=== PATIENT | female | born 1980 | race American Indian/Alaskan Native ===

== ENCOUNTER 2021-11-24 01:21 | Emergency (ER) | payer OTHER, MEDICAID, SELFPAY ==
--- NOTE | ~2021-11-24 | CT_ITS ---
EXAMINATION: CT ABDOMEN AND PELVIS WITHOUT CONTRAST CLINICAL INFORMATION: Lower abdominal pain COMPARISON: None TECHNIQUE: Multidetector volumetric imaging was performed from the superior aspect of the liver through the pubic symphysis. Sagittal and coronal reformatted images were obtained on the technologist's workstation. This CT examination was performed using dose optimization techniques as appropriate, variously including the following: *Automated exposure control *Adjustment of mA and/or kV according to patient size (this includes techniques or standardized protocols for targeted exams where dose is matched to indication/reason for exam; i.e. extremities or head) *Use of iterative reconstruction technique DLP: 635 mGy-cm FINDINGS: LUNG BASES: The visualized lung bases are unremarkable. LIVER, GALLBLADDER, AND BILIARY TREE: The liver is normal in size, shape, and attenuation. No focal hepatic lesion or biliary ductal dilatation is present. The gallbladder is unremarkable with no evidence of radiopaque gallstones, gallbladder wall thickening, or obvious pericholecystic inflammatory changes. PANCREAS: Unremarkable. SPLEEN: Unremarkable. ADRENAL GLANDS: Unremarkable. KIDNEYS AND URETERS: The kidneys are normal in size, shape, and attenuation. No hydronephrosis, hydroureter, or calculi seen. No perinephric stranding. BLADDER: Unremarkable. GASTROINTESTINAL TRACT: No evidence of bowel obstruction or significant wall thickening. The appendix is unremarkable. No free fluid or free air is seen. ABDOMINAL WALL: No significant hernia is appreciated. LYMPH NODES: Normal. VASCULAR: Unremarkable. PELVIC VISCERA: Unremarkable. OSSEOUS STRUCTURES: There is facet arthropathy of the lower lumbar spine. CT/CT abdomen pelvis wo IV con IMPRESSION: No acute findings identified in the abdomen/pelvis.
[2021-11-24 01:43] LABS: MANUAL DIFF FLAG NO
[2021-11-24 01:44] LABS: Basophils Absolute Auto 0.1 X10*3/uL (0.0-0.2); Basophils Percent Auto 0.6 % (0-2); Eosinophils Absolute Auto 0.1 X10*3/uL (0.0-0.4); Eosinophils Percent Auto 1.4 % (0-4); Hematocrit 40.8 % (37.0-47.0); Hemoglobin 13.6 g/dl (12.0-16.0); Imm Gran Abs Auto 0.02 X10*3/uL (0.00-0.03); Imm Gran Pct Auto 0.2 % (0.0-0.4); Lymphocytes Percent Auto 36.1 % (20-40); Mean Corpuscular HGB Conc 33.3 g/dl (31.0-35.0); Mean Corpuscular Hemoglobin 32.4 pg (27.0-33.0); Mean Corpuscular Volume 97.1 fL (80.0-98.0); Mean Platelet Volume 9.3 fL (9.4-12.3); Monocytes Absolute Auto 0.8 X10*3/uL (0.1-1.2); Monocytes Percent Auto 9.8 % (2-11); Neutrophils Absolute Auto 4.4 x10*3/uL (2.0-8.3); Neutrophils Percent Auto 51.9 % (45-73); Platelet Count 346 X10*3/uL (160-400); White Blood Count 8.4 X10*3/uL (4.8-10.8)
[2021-11-24 01:59] LABS: Alanine Aminotransferase 20 U/L (0-31); Albumin Level 4.5 g/dL (3.5-5.0); Alkaline Phosphatase 60 U/L (39-117); Anion Gap 13 (12-20); Aspartate Amino Transferase 20 U/L (5-31); Bilirubin Direct 0.2 mg/dL (0.0-0.5); Bilirubin Total 0.4 mg/dL (0.0-1.0); Blood Urea Nitrogen 13 mg/dL (9-16); Calcium 9.5 mg/dL (8.4-10.2); Carbon Dioxide 24 mmol/L (22-29); Chloride 107 mmol/L (96-108); Estimated Glomerular Filt Rate > 60; Glucose Random 95 mg/dL (60-115); Lipase 71 U/L (8-78); Sodium 140 mmol/L (135-145); Total Protein 7.1 g/dL (6.5-8.0)
[2021-11-24 02:04] VITALS: BP 154/90; PULSE 89; RESP 18; TEMP 36.2; O2SAT 99; BMI 30.4
--- NOTE | 2021-11-24 02:32 | ED.ABDPAIN ---
HPI - Abdominal Pain General Chief Complaint: Abdominal Pain Stated Complaint: Abd pain Time Seen by Provider: 11/24/21 02:11 Source: patient Mode of arrival: ambulatory Limitations: no limitations History of Present Illness HPI narrative: This is a 41-year-old female presenting to the emergency department with dizziness, nausea, lower abdominal pain since yesterday. Patient tells me she started her period yesterday which seems to be manager reading than usual she tells me she is going through 1 tampon super every 3-4 hours. She tells me that she feels slightly off balance particularly with ambulation. She reports constant nausea since yesterday and severe lower abdominal pain which she rates a 10/10. She has a hard time explaining with the pain feels like but she tells me it is localized right below the umbilicus. She does not think she is however she is not on control. She denies chest pain, shortness of breath, vomiting, diarrhea, vision changes, headache, neck pain. Patient reports that she has taken ibuprofen, Tylenol, Midol, Flexeril without relief. MD elicited complaint: abdominal pain Pertinent past history: none Onset (ago): day(s) (2) Pain Consistency: constant Location: periumbilical Severity: severe Pain scale (0-10): 10 Quality: sharp Radiation: none Migration to: no migration Exacerbating factors: nothing Relieving factors: nothing Associated symptoms: nausea and other (dizziness) Related Data Previous Rx's Medication Instructions Recorded ondansetron 4 mg disintegrating 4 mg PO Q8H PRN #10 tab 11/24/21 tablet Allergies Allergy/AdvReac Type Severity Reaction Status Date / Time Unable to Assess Allergy Unverified 11/24/21 02:33 Review of Systems Review of Systems Constitutional : No Weight loss, No Fever, No Chills, No Fatigue, No Malaise ENT/Mouth : No sore throat, No Rhinorrhea Eyes: No Eye Pain, No Swelling, No Redness Cardiovascular : No Chest Pain, No SOB, No Dyspnea on Exertion, No Orthopnea, No Edema, No Palpitations Respiratory : No Cough, No Sputum, No Wheezing Gastrointestinal : + Nausea, No Vomiting, No Diarrhea, No Constipation, + abdominal Pain, No Hematochezia, No Melena Genitourinary : No Dysuria, No Urinary Frequency, No Hematuria, Musculoskeletal : No joint pain, No Myalgias, No Joint Swelling Skin : No Skin Lesions, No rash Neuro : No Weakness, No Numbness, + Dizziness, No Headache Psych : No Anxiety/Panic, No Depression All other systems reviewed and are negative Yes all other systems are reviewed and are negative [facility] Past Medical History Attestation statement: The following information was validated with the patient. Source: old records reviewed and nursing notes reviewed Social History Social History Alcohol intake: current Patient Tobacco Use Status: Current everyday Tobacco user Use of substances other than those prescribed or required for medical reasons: No Advance Directives: No Patient : No Physical Exam ED Vital Signs: Vital Signs - 24 hr 11/24/21 02:04 11/24/21 02:50 11/24/21 04:30 Temperature 97.2 F 98.1 F Pulse Rate 89 83 85 Respiratory Rate 18 16 16 Blood Pressure 154/90 H 129/90 H 146/82 H Pulse Oximetry 99 100 99 BMI result Body Mass Index 30.4 Vital signs stable Appearance: Alert.? Oriented X3.? No acute distress.? Head: Normocephalic, atraumatic, no step-offs or deformities Eyes: Pupils equal, round and reactive to light.?EOMI ENT: Pharynx normal.? Neck: Normal inspection.? Neck supple.? CVS: Normal heart rate and rhythm.? Pulses normal.? Respiratory: No respiratory distress.? Breath sounds normal.? Abdomen: Soft and + periumbilical pain upon palpation, normoactive bowel sounds Skin: Skin warm and dry.? Normal skin color.? Normal skin turgor.? Extremities: No lower extremity edema.? No calf ttp. 5/5 strength to bilateral upper and lower extremities Back: No midline tenderness, no C-spine tenderness, full range of motion, no CVA tenderness bilaterally Neuro: Oriented X 3.? No motor deficit.? No sensory deficit. CN 2-12 intact. Normal vszocd-xb-cbxg, sdip-zd-svhg, steady tandem gait. No pronator drift. Sensitive exam: Deferred , patient refuses Course Reevaluation(s) Reevaluation #1: Patient's CBC within normal limits. No acute electrolyte abnormalities requiring intervention. Lipase within normal limits. HCG negative.Patient reports improvement in pain after administering Toradol, nausea improved after Zofran. She is receiving a L of fluids the 2nd [address] is ordered. Urine and CT of the abdomen pelvis pending at this time. Time: 03:50 Reevaluation #2: CT of the abdomen and pelvis with no acute findings. Urine pending. Patient tells me that her symptoms are gone. Patient's symptoms likely secondary to cramping from menses. Time: 04:18 Reevaluation #3: Urine is pending, patient does not want a 2 L of fluids, she wants to leave without waiting for the urine. Still refusing pelvic exam. At this time patient will be leaving against medical advice. Advised her to return with new or worsening symptoms. Outlined these on her discharge. Time: 04:39 MDM - Abdominal Pain MDM Narrative Medical decision making narrative: 030 41-year-old female presents with 10/10 periumbilical pain, nausea, dizziness since yesterday. Patient reports she is on her period. She tells me it is normal flow if anything, she tells me manager reading than usual. Physical exam significant for pain with palpation in the periumbilical region, normoactive bowel sounds. Lungs clear. Regular rate and rhythm. Negative CVA tenderness bilaterally. Neuro exam is nonfocal. Normal nlvyqo-uo-xqry, gffd-pt-ufwc, steady tandem gait. Based off patient history and physical examination unlikely that this is a stroke, posterior infarct. Will rule out intra-abdominal pathologies with CT scan of the abdomen I do not suspect cholecystitis, appendicitis or pancreatitis. Likely abdominal cramping secondary to menses. Will also rule out electrolyte abnormalities, and UTI Medical Records Attestation: I reviewed the patient's medical records. Lab Data Attestation: I reviewed the patient's lab results. Result diagrams: 11/24/21 01:38 11/24/21 01:38 Labs: Lab Results 11/24/21 11/24/21 Range/Units 01:38 01:38 WBC 8.4 (4.8-10.8) X10*3/uL RBC 4.20 (4.20-5.50) X10*6/uL Hgb 13.6 (12.0-16.0) g/dl Hct 40.8 (37.0-47.0) % MCV 97.1 (80.0-98.0) fL MCH 32.4 (27.0-33.0) pg MCHC 33.3 (31.0-35.0) g/dl RDW 13.0 (11.0-16.0) % Plt Count 346 (160-400) X10*3/uL MPV 9.3 L (9.4-12.3) fL Immature Gran % (Auto) 0.2 (0.0-0.4) % Neut % (Auto) 51.9 (45-73) % Lymph % (Auto) 36.1 (20-40) % [place] % (Auto) 9.8 (2-11) % Eos % (Auto) 1.4 (0-4) % Baso % (Auto) 0.6 (0-2) % Lymph # (Auto) 3.0 (1.2-4.9) X10*3/uL [place] # (Auto) 0.8 (0.1-1.2) X10*3/uL Eos # (Auto) 0.1 (0.0-0.4) X10*3/uL Baso # (Auto) 0.1 (0.0-0.2) X10*3/uL Abs Immat Gran (auto) 0.02 (0.00-0.03) X10*3/uL Absolute Neuts (auto) 4.4 (2.0-8.3) x10*3/uL Absolute Nucleated RBC 0.000 (0.0-0.012) X10*3/uL Nucleated RBC % (auto) 0.0 (0.0-0.2) /100WBC Sodium 140 (135-145) mmol/L Potassium 4.0 (3.3-5.1) mmol/L Chloride 107 (96-108) mmol/L Carbon Dioxide 24 (22-29) mmol/L Anion Gap 13 (12-20) BUN 13 (9-16) mg/dL Creatinine 0.84 (0.5-1.4) mg/dL Estim Creat Clear Calc TNP Estimated GFR > 60 Random Glucose 95 (60-115) mg/dL Calcium 9.5 (8.4-10.2) mg/dL Total Bilirubin 0.4 (0.0-1.0) mg/dL Direct Bilirubin 0.2 (0.0-0.5) mg/dL AST 20 (5-31) U/L ALT 20 (0-31) U/L Alkaline Phosphatase 60 (39-117) U/L Total Protein 7.1 (6.5-8.0) g/dL Albumin 4.5 (3.5-5.0) g/dL Lipase 71 (8-78) U/L Beta HCG, Quant < 2 mIU/mL Critical Care Time Critical Care Time Critical Care Time: No Discharge Plan Discharge Clinical Impression: Abdominal pain, Nausea, Left against medical advice Patient Disposition: Home, Self-Care Instructions: Acute Nausea and Vomiting (ED), Abdominal Pain (ED) Additional Instructions: Take your medications as prescribed. If you were prescribed antibiotics today, it is important that you take your medication to their entirety, do not skip any doses, do not finish them early. Follow-up with your primary care provider this week. And follow-up with your OBGYN. Return to the emergency department with new or worsening symptoms. Such as fevers, chills, chest pain, shortness of breath, nausea, vomiting, dizziness, headache, vision changes, lethargy, bleeding through greater than 2 pads per hour or tampons, dizziness You can take ibuprofen every 6 hours, Tylenol every 4 as needed for pain or discomfort. In case of emergency call 911 Although you felt better after fluids and medication, ideally should have received a full 2 L of fluids however you wanted your IV out and you did not want to stay. You also wanted to leave before urine results came back. For this reason you are leaving against medical advice as I cannot re-evaluate you after fluids, urine. Please come back if you change your mind. Prescriptions: New ondansetron 4 mg tablet,disintegrating 4 mg PO Q8H PRN (Reason: nausea and vomiting) Qty: 10 0RF Referrals: Mickey Robert III, MD [Primary Care Provider] - 1 day Stand Alone Forms: Work/School Release, Against Medical Advice
[2021-11-24 02:50] VITALS: BP 129/90; PULSE 83; RESP 16; TEMP 36.7; O2SAT 100
[2021-11-24] MEDS: Ketorolac Tromethamine 15 MG/ML VIAL 30 MG IVPUSH (03:07)
[2021-11-24] MEDS: ondansetron HCL 4 MG/2 ML VIAL IVPUSH (03:07)
[2021-11-24] MEDS: 0.9 % Sodium Chloride 1,000 ML 999 ML IV ×2 (03:09→04:11)
[2021-11-24 03:17] LABS: HCG Quantitative < 2 mIU/mL
[2021-11-24 04:30] VITALS: BP 146/82; PULSE 85; RESP 16; O2SAT 99
[2021-11-24 04:43] LABS: Appearance Urine CLEAR; Color Urine YELLOW; Glucose Urine UA NEG (NEG); Leukocyte Esterase Urine NEG (NEG); Nitrite Urine NEG (NEG); PH 6.5 (5.0-8.0); Specific Gravity - Urine <= 1.005 (1.005-1.025); UACC Culture Trigger NO; Urine Blood 2+ (NEG); Urine Ketones NEG (NEG); Urine Protein NEG (NEG-TRACE)
[2021-11-24 04:58] LABS: Bacteria Urine 1+ /LPF; Squamous Epithelial Cell Urine 1+ /LPF
== END 2021-11-24 04:46 | disposition home or self-care (01) ==
PROVIDERS: Physician Assistant; Emergency Provider Emergency Medicine; PCP Internal Medicine
DX: R10.30 Lower abdominal pain, unspecified (principal); R11.0 Nausea; F17.200 Nicotine dependence, unspecified, uncomplicated
CPT/HCPCS: 36415; 74176; 80053; 81001; 82248; 83690; 84702; 85025; 96361; 96374; 96375; 99284; J1885; J2405

== ENCOUNTER 2024-03-23 08:57 | Outpatient (AMB) | payer OTHER, SELFPAY ==
[2024-03-23 09:03] VITALS: BP 136/85; PULSE 95; O2SAT 97; BMI 31.6
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
== END 2024-03-23 09:39 | disposition home or self-care (01) ==
PROVIDERS: PCP Internal Medicine; Visit Provider Registered Nurse Emergency
DX: M47.816 Spondylosis without myelopathy or radiculopathy, lumbar region (principal); S73.191A Other sprain of right hip, initial encounter; M25.561 Pain in right knee
CPT/HCPCS: 99204; G2211

== ENCOUNTER → 2024-03-23 08:57 | Outpatient (BNVA) | payer OTHER, SELFPAY | PROVIDERS: PCP Internal Medicine; Visit Provider Registered Nurse Emergency | DX: M47.816 Spondylosis without myelopathy or radiculopathy, lumbar region (principal); M25.561 Pain in right knee; S73.191A Other sprain of right hip, initial encounter | CPT/HCPCS: 99202 ==

== ENCOUNTER 2024-05-02 10:26 | Outpatient (AMB) | payer OTHER, SELFPAY ==
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
== END 2024-05-02 10:45 | disposition home or self-care (01) ==
LOC: HO.PMC 10:26
PROVIDERS: PCP Internal Medicine; Visit Provider Registered Nurse Emergency
DX: M47.816 Spondylosis without myelopathy or radiculopathy, lumbar region (principal); S73.191A Other sprain of right hip, initial encounter; M25.561 Pain in right knee; M54.9 Dorsalgia, unspecified
CPT/HCPCS: 99213; G2211

== ENCOUNTER → 2024-05-02 10:26 | Outpatient (BNVA) | payer OTHER, SELFPAY | PROVIDERS: PCP Internal Medicine; Visit Provider Registered Nurse Emergency ==

== ENCOUNTER 2024-06-12 06:16 | Outpatient (REF) | payer OTHER, SELFPAY ==
--- NOTE | ~2024-06-12 | FL_ITS ---
EXAMINATION: FLUORO GUIDANCE IN TREATMENT ROOM CLINICAL INFORMATION: Dorsalgia chest, unspecified. COMPARISON: None available. TECHNIQUE: Fluoroscopy supervised by: Dr. Demetrio Sepulveda. Fluoroscopy time: 0.1 minutes. Cumulative Dose: 1.6 mGy. DAP: 0.0202 mGy-m2 (milligray-meter squared). Images: 2. FINDINGS: A needle is present with its tip most likely at L5 on the right. A larger probe is present with its tip overlying what is most likely L4 on the right. FL/FL guidance in treatment room IMPRESSION: Fluoroscopy during procedure. Please see procedure report for additional information. Electronically signed by: Wai Rosario MD 08/01/2024 04:58 PM [facility]
--- OUTSIDE RECORDS SUMMARY | 2024-06-13 18:27 | XMS_ITS ---
Author Organization [facility], Address [address] [place] [address] Care Team Providers Care Monitor And Storage Bin Tender Name Role Phone Bernadette Ma Unavailable [phone] ALLERGIES, ADVERSE REACTIONS, ALERTS Substance Code Code System Type Reaction Severity Status Start Date End Date Cymbalta 340763 RxNorm Drug allergy () 0 Penicillins RxNorm Drug allergy () 0 Penicillins Unknown Drug allergy () 1 MEDICATIONS Medication Code Code System Start Date Stop Date Route Dosage Directions Fill Instructions valacyclovir 0 RxNorm oral cyclobenzaprine 0 RxNorm oral Zithromax Z-Eric 323958 RxNorm 022 06/26 oral 2 omeprazole 0 RxNorm oral benzonatate 956208 RxNorm 022 07/01 oral 1 erythromycin 123467 RxNorm 04/10/20 24 ophthalmic (eye) 0.5 Bactrim DS 271757 RxNorm 023 oral 1 PROBLEMS Problem Name Code Code System Start Date End Date Stat Unspecified abdominal pain (R10.9) 57144061 [facility] 06/10/2022 Inactive Encounter for test, result negative (Z32.02) [facility] 06/14/2022 Inactive Lower abdominal pain, unspecified (R10.30) [facility] 06/14/2022 Inactiv e Bronchitis, acute (J20.9) 21094585 [facility] 06/21/2022 Inactive Cough, unspecified (R05.9) [facility] 06/23/2022 Inactive Contact with and (suspected) exposure to other viral communicable diseases (Z20.828) [facility] 06/23/2022 Inactive Gastro-esophageal reflux disease 629596794 [facility] Active Unspecified asthma, uncomplicated 816726685 [facility] 04/09/2023 Resolved Disruption of wound, unspecified, initial encounter 548405774 [facility] 04/17/2023 Resolved Hordeolum externum left upper eyelid 150392539150617 [facility] 04/10/2024 Active ENCOUNTERS Encounter Diagnosis Code Code System Date Stat us Pneumonia, unspecified organism 786496746 [facility] 04/09 Active Unspecified asthma, uncomplicated 331097021 [facility] Active IMMUNIZATIONS * None VITAL SIGNS Code Code System Vitals Name Date Value and Un its 8462-4 [facility] Blood Pressure-Diastolic 04/09/2023 96 mmHg 8480-6 [facility] Blood Pressure-Systolic 04/09/2023 1 36 mmHg 8867-4 [facility] Heart Rate 04/09/2023 101 /min 9279-1 [facility] Respiratory Rate 04/09/2023 18 /min 8310-5 [facility] Body Temperature 04/09/2023 98.3 F 61990-2 [facility] Oxygen Saturation 04/09/2023 96 % SOCIAL HISTORY * None PROCEDURES * None RESULTS Test Code Code System Description Result Value Date Ref erence Range [facility] Strep A Not Detected 04/09/2023 Not Det ected [facility] SARS-CoV-2 Not Detected 04/09/2023 Not De tected [facility] Flu A Not Detected 04/09/2023 Not Det ected [facility] Flu B Not Detected 04/09/2023 Not Det ected MEDICAL EQUIPMENT * Patient has no history of implantable devices ASSESSMENT * None TREATMENT PLAN Type Description Date MEDICATION Take 250 mg tablet 04/09/2023 MEDICATION Take 50 mg tablet 04/09/2023 MEDICATION Take 90 mcg/actuation HFA Aeroso l Inhaler 04/09/2023 APPOINTMENT If not feeling karen r in 3 day(s), please see your primary care physician. If you do not have a primary care physician, please return to this clinic. 04/09/2023 Labs Tests Test Name Code Code System Date SARS-CoV-2 & Flu A/B Multipl ex Assay, Amplified Probe Molecular RT-PCR / NAAT 29405 CPT 04/09/2023 Strep A, DNA, Amplified Probe PCR 36692 CPT 04/09/2023 GOALS * None HEALTH CONCERNS * No Health Concerns FUNCTIONAL AND COGNITIVE STATUS * None CONSULTATION NOTES * None DISCHARGE SUMMARY NOTES * None HISTORY AND PHYSICAL NOTES * Reason for visit - Illness IMAGING NOTES * None LABORATORY REPORT NARRATIVE NOTES * None PATHOLOGY REPORT NARRATIVE NOTES * None PROGRESS NOTES * None
--- OUTSIDE RECORDS SUMMARY | 2024-06-13 18:27 | XMS_ITS ---
Author Organization [facility], Address [address] [place] [address] Care Team Providers Care Merchandise Planner Name Role Phone Laurie Tolliver Unavailable ALLERGIES, ADVERSE REACTIONS, ALERTS Substance Code Code System Type Reaction Severity Status Start Date End Date Penicillins RxNorm Drug allergy () 0 Penicillins Unknown Drug allergy () 1 Cymbalta 175149 RxNorm Drug allergy () 0 MEDICATIONS Medication Code Code System Start Date Stop Date Route Dosage Directions Fill Instructions valacyclovir 0 RxNorm oral cyclobenzaprine 0 RxNorm oral Zithromax Z-Eric 838844 RxNorm 022 06/26 oral 2 omeprazole 0 RxNorm oral benzonatate 261549 RxNorm 022 07/01 oral 1 erythromycin 216356 RxNorm 04/10/20 24 ophthalmic (eye) 0.5 Bactrim DS 510693 RxNorm 023 oral 1 PROBLEMS Problem Name Code Code System Start Date End Date Stat Unspecified abdominal pain (R10.9) 02796256 [facility] 06/10/2022 Inactive Encounter for test, result negative (Z32.02) [facility] 06/14/2022 Inactive Lower abdominal pain, unspecified (R10.30) [facility] 06/14/2022 Inactiv e Bronchitis, acute (J20.9) 32522621 [facility] 06/21/2022 Inactive Cough, unspecified (R05.9) [facility] 06/23/2022 Inactive Contact with and (suspected) exposure to other viral communicable diseases (Z20.828) [facility] 06/23/2022 Inactive Gastro-esophageal reflux disease 380705850 [facility] Active Unspecified asthma, uncomplicated 306972851 [facility] 04/09/2023 Resolved Disruption of wound, unspecified, initial encounter 148969435 [facility] 04/17/2023 Resolved Hordeolum externum left upper eyelid 216737431115895 [facility] 04/10/2024 Active ENCOUNTERS Encounter Diagnosis Code Code System Date Stat us Hordeolum externum left upper eyelid 677358791542811 [facility] 04/10/2024 Active IMMUNIZATIONS * None VITAL SIGNS Code Code System Vitals Name Date Value and Un its 8462-4 [facility] Blood Pressure-Diastolic 04/10/2024 84 mmHg 8480-6 [facility] Blood Pressure-Systolic 04/10/2024 1 12 mmHg 8867-4 [facility] Heart Rate 04/10/2024 94 /min 9279-1 [facility] Respiratory Rate 04/10/2024 18 /min 8310-5 [facility] Body Temperature 04/10/2024 98.8 F 88678-5 inc Oxygen Saturation 04/10/2024 97 % SOCIAL HISTORY * None PROCEDURES * None MEDICAL EQUIPMENT * Patient has no history of implantable devices ASSESSMENT * None TREATMENT PLAN Type Description Date MEDICATION Take 5 mg/gram (0.5 %) ointment 04/10/2024 ORDERS Apply frequent warm moist compresses such as slightly cold steep black tea bag 6-7 times daily for approximately 10 minutes. Do not squeeze the area styes are generally self-limiting and will resolve on their own. 04/10/2024 APPOINTMENT If not feeling karen r in 3 day(s), please see your primary care physician. If you do not have a primary care physician, please return to this clinic. 04/10/2024 Lab Tests None GOALS * None HEALTH CONCERNS * No Health Concerns FUNCTIONAL AND COGNITIVE STATUS * None CONSULTATION NOTES * None DISCHARGE SUMMARY NOTES * None HISTORY AND PHYSICAL NOTES * Reason for visit - Illness IMAGING NOTES * None LABORATORY REPORT NARRATIVE NOTES * None PATHOLOGY REPORT NARRATIVE NOTES * None PROGRESS NOTES * None
--- OUTSIDE RECORDS SUMMARY | 2024-06-13 18:27 | XMS_ITS ---
Author Organization [facility], Address [address] [place] [address] Care Team Providers Care Customs Inspector Name Role Phone Cristel Jin Unavailable [phone] ALLERGIES, ADVERSE REACTIONS, ALERTS Substance Code Code System Type Reaction Severity Status Start Date End Date Penicillins RxNorm Drug allergy () 0 Cymbalta 884011 RxNorm Drug allergy () 0 Penicillins Unknown Drug allergy () 1 MEDICATIONS Medication Code Code System Start Date Stop Date Route Dosage Directions Fill Instructions valacyclovir 0 RxNorm oral cyclobenzaprine 0 RxNorm oral Zithromax Z-Eric 679465 RxNorm 022 06/26 oral 2 omeprazole 0 RxNorm oral benzonatate 482045 RxNorm 022 07/01 oral 1 erythromycin 850353 RxNorm 04/10/20 24 ophthalmic (eye) 0.5 Bactrim DS 080686 RxNorm 023 oral 1 PROBLEMS Problem Name Code Code System Start Date End Date Stat Unspecified abdominal pain (R10.9) 97659717 [facility] 06/10/2022 Inactive Encounter for test, result negative (Z32.02) [facility] 06/14/2022 Inactive Lower abdominal pain, unspecified (R10.30) [facility] 06/14/2022 Inactiv e Bronchitis, acute (J20.9) 92541340 [facility] 06/21/2022 Inactive Cough, unspecified (R05.9) [facility] 06/23/2022 Inactive Contact with and (suspected) exposure to other viral communicable diseases (Z20.828) [facility] 06/23/2022 Inactive Gastro-esophageal reflux disease 705278595 [facility] Active Unspecified asthma, uncomplicated 444428010 [facility] 04/09/2023 Resolved Disruption of wound, unspecified, initial encounter 497290512 [facility] 04/17/2023 Resolved Hordeolum externum left upper eyelid 078233205690144 [facility] 04/10/2024 Active ENCOUNTERS Encounter Diagnosis Code Code System Date Stat us Encounter for removal of sutures 16250304 [facility] 04/06/2023 Active IMMUNIZATIONS * None VITAL SIGNS Code Code System Vitals Name Date Value and Un its 8462-4 [facility] Blood Pressure-Diastolic 04/06/2023 106 mmHg 8480-6 [facility] Blood Pressure-Systolic 04/06/2023 1 59 mmHg 8867-4 [facility] Heart Rate 04/06/2023 103 /min 9279-1 [facility] Respiratory Rate 04/06/2023 18 /min 8310-5 [facility] Body Temperature 04/06/2023 98.7 F 57781-1 [facility] Oxygen Saturation 04/06/2023 97 % SOCIAL HISTORY * None PROCEDURES Code Code System Procedure Date Status Notes 97333 Cpt4 Suture Removal 04/06/2023 completed Deo Gallardo - 04/06/2023 Risks and benefits of procedure and alternatives discussed, and patient verbalized understanding and consent.Procedure: no erythema, no swelling, no warmth, no dehiscence, no discharge, Sutures and louie removed, 6 sutures removed.Patient tolerated procedure well. Patient left room without difficulty. MEDICAL EQUIPMENT * Patient has no history of implantable devices ASSESSMENT Assessment If you develop any spreading redness, red streaking, fever, or signs of infection otherwise please return.Take Tylenol as needed. TREATMENT PLAN Type Description Date APPOINTMENT If not feeling karen r in 3 day(s), please see your primary care physician. If you do not have a primary care physician, please return to this clinic. 04/06/2023 Lab Tests None GOALS * None HEALTH CONCERNS * No Health Concerns FUNCTIONAL AND COGNITIVE STATUS * None CONSULTATION NOTES * None DISCHARGE SUMMARY NOTES * None HISTORY AND PHYSICAL NOTES * Reason for visit - Suture/Staple Removal IMAGING NOTES * None LABORATORY REPORT NARRATIVE NOTES * None PATHOLOGY REPORT NARRATIVE NOTES * None PROGRESS NOTES * None
--- OUTSIDE RECORDS SUMMARY | 2024-06-13 18:27 | XMS_ITS ---
Author Organization [facility], Address [address] [place] [address] Care Team Providers Care Cone Tender Name Role Phone Deo Gallardo [phone] ALLERGIES, ADVERSE REACTIONS, ALERTS Substance Code Code System Type Reaction Severity Status Start Date End Date Penicillins Unknown Drug allergy () 1 Penicillins RxNorm Drug allergy () 0 Cymbalta 962896 RxNorm Drug allergy () 0 MEDICATIONS Medication Code Code System Start Date Stop Date Route Dosage Directions Fill Instructions valacyclovir 0 RxNorm oral cyclobenzaprine 0 RxNorm oral Zithromax Z-Eric 996983 RxNorm 022 06/26 oral 2 omeprazole 0 RxNorm oral benzonatate 254390 RxNorm 022 07/01 oral 1 erythromycin 179993 RxNorm 04/10/20 24 ophthalmic (eye) 0.5 Bactrim DS 546965 RxNorm 023 oral 1 PROBLEMS Problem Name Code Code System Start Date End Date Stat Unspecified abdominal pain (R10.9) 61401512 [facility] 06/10/2022 Inactive Encounter for test, result negative (Z32.02) [facility] 06/14/2022 Inactive Lower abdominal pain, unspecified (R10.30) [facility] 06/14/2022 Inactiv e Bronchitis, acute (J20.9) 52414389 [facility] 06/21/2022 Inactive Cough, unspecified (R05.9) [facility] 06/23/2022 Inactive Contact with and (suspected) exposure to other viral communicable diseases (Z20.828) [facility] 06/23/2022 Inactive Gastro-esophageal reflux disease 185045703 [facility] Active Unspecified asthma, uncomplicated 664618694 [facility] 04/09/2023 Resolved Disruption of wound, unspecified, initial encounter 515508779 [facility] 04/17/2023 Resolved Hordeolum externum left upper eyelid 654306871023585 [facility] 04/10/2024 Active ENCOUNTERS Encounter Diagnosis Code Code System Date Stat us Disruption of wound, unspeci fied, initial encounter 956371578 [facility] 04/17/2023 Active IMMUNIZATIONS * None VITAL SIGNS Code Code System Vitals Name Date Value and Un its 8462-4 [facility] Blood Pressure-Diastolic 04/17/2023 80 mmHg 8480-6 [facility] Blood Pressure-Systolic 04/17/2023 1 36 mmHg 8867-4 [facility] Heart Rate 04/17/2023 95 /min 9279-1 [facility] Respiratory Rate 04/17/2023 18 /min 8310-5 [facility] Body Temperature 04/17/2023 97.1 F 14502-3 [facility] Oxygen Saturation 04/17/2023 99 % SOCIAL HISTORY * None PROCEDURES * None MEDICAL EQUIPMENT * Patient has no history of implantable devices ASSESSMENT Assessment Keep the area covered as himanshu wn.Take the antibiotic as prescribed.If develop any fevers, spreading redness, red streaking or any other new, concerning symptoms please be reevaluated immediately TREATMENT PLAN Type Description Date MEDICATION Take 1 tab by mouth 2 times per day 04/17/2023 APPOINTMENT If not feeling karen r in 3 day(s), please see your primary care physician. If you do not have a primary care physician, please return to this clinic. 04/17/2023 Lab Tests None GOALS * None HEALTH CONCERNS * No Health Concerns FUNCTIONAL AND COGNITIVE STATUS * None CONSULTATION NOTES * None DISCHARGE SUMMARY NOTES * None HISTORY AND PHYSICAL NOTES * Reason for visit - Injury IMAGING NOTES * None LABORATORY REPORT NARRATIVE NOTES * None PATHOLOGY REPORT NARRATIVE NOTES * None PROGRESS NOTES * None
--- OUTSIDE RECORDS SUMMARY | 2024-06-13 18:27 | XMS_ITS ---
Author Organization [facility], Address [address] [place] [address] Care Team Providers Care Eye Technician Name Role Phone Cristel Jin Unavailable [phone] ALLERGIES, ADVERSE REACTIONS, ALERTS Substance Code Code System Type Reaction Severity Status Start Date End Date Penicillins Unknown Drug allergy () 1 Penicillins RxNorm Drug allergy () 0 Cymbalta 564217 RxNorm Drug allergy () 0 MEDICATIONS Medication Code Code System Start Date Stop Date Route Dosage Directions Fill Instructions valacyclovir 0 RxNorm oral cyclobenzaprine 0 RxNorm oral Zithromax Z-Eric 001037 RxNorm 022 06/26 oral 2 omeprazole 0 RxNorm oral benzonatate 177625 RxNorm 022 07/01 oral 1 erythromycin 577629 RxNorm 04/10/20 24 ophthalmic (eye) 0.5 Bactrim DS 650561 RxNorm 023 oral 1 PROBLEMS Problem Name Code Code System Start Date End Date Stat Unspecified abdominal pain (R10.9) 69787455 [facility] 06/10/2022 Inactive Encounter for test, result negative (Z32.02) [facility] 06/14/2022 Inactive Lower abdominal pain, unspecified (R10.30) [facility] 06/14/2022 Inactiv e Bronchitis, acute (J20.9) 41717022 [facility] 06/21/2022 Inactive Cough, unspecified (R05.9) [facility] 06/23/2022 Inactive Contact with and (suspected) exposure to other viral communicable diseases (Z20.828) [facility] 06/23/2022 Inactive Gastro-esophageal reflux disease 696093994 [facility] Active Unspecified asthma, uncomplicated 596703506 [facility] 04/09/2023 Resolved Disruption of wound, unspecified, initial encounter 823878368 [facility] 04/17/2023 Resolved Hordeolum externum left upper eyelid 372584868073832 [facility] 04/10/2024 Active ENCOUNTERS Encounter Diagnosis Code Code System Date Stat us Contusion of right hand, incosmo tial encounter 48095954648836786 [facility] 03/14/2023 Active IMMUNIZATIONS * None VITAL SIGNS Code Code System Vitals Name Date Value and Un its 8462-4 [facility] Blood Pressure-Diastolic 03/14/2023 95 mmHg 8480-6 [facility] Blood Pressure-Systolic 03/14/2023 1 38 mmHg 8867-4 [facility] Heart Rate 03/14/2023 102 /min 9279-1 [facility] Respiratory Rate 03/14/2023 18 /min 8310-5 [facility] Body Temperature 03/14/2023 98.4 F 89535-7 [facility] Oxygen Saturation 03/14/2023 98 % SOCIAL HISTORY * None PROCEDURES * None MEDICAL EQUIPMENT * Patient has no history of implantable devices ASSESSMENT * None TREATMENT PLAN Type Description Date APPOINTMENT If not feeling karen r in 3 day(s), please see your primary care physician. If you do not have a primary care physician, please return to this clinic. 03/14/2023 Lab Tests None GOALS * None HEALTH CONCERNS * No Health Concerns FUNCTIONAL AND COGNITIVE STATUS * None CONSULTATION NOTES * None DISCHARGE SUMMARY NOTES * None HISTORY AND PHYSICAL NOTES * Reason for visit - Injury IMAGING NOTES * /[place]astern History: Pain-Right Hand: The patient presents with a chief complaint of pain of the right hand since 1 day ago. The patient describes the severity as severe. The patient also reports swelling as an abnormal symptom related to the complaint.RIGHT HANDFindings:Alignment is normal. No fracture or dislocation. Soft tissues are unremarkable.Impression:Negative right hand LABORATORY REPORT NARRATIVE NOTES * None PATHOLOGY REPORT NARRATIVE NOTES * None PROGRESS NOTES * None
== END 2024-06-12 06:17 | disposition home or self-care (01) ==
LOC: CF 06:16
PROVIDERS: Visit Provider Anesthesiology
DX: M54.9 Dorsalgia, unspecified (principal); M47.816 Spondylosis without myelopathy or radiculopathy, lumbar region
CPT/HCPCS: 64555; J2003

== ENCOUNTER 2024-06-12 13:03 | Outpatient (AMB) | payer OTHER, SELFPAY ==
[2024-06-12 13:12] VITALS: BP 100/70; PULSE 104; RESP 1; O2SAT 97
--- NOTE | 2024-06-12 13:12 | MHC.OFFVIS ---
Vital Signs 06/12/24 13:12 06/12/24 13:59 BP 100/70 110/72 Blood Pressure Location Lt brachial Lt brachial Position Sitting Sitting Respiration 1 L 14 Pulse 104 H 91 Pulse Source Pulse Oximeter Pulse Oximeter Pulse Oximetry (%) 97 96 Oxygen Delivery Method Room Air Room Air Intake Visit Reasons: RIGHT L5 SPRINT PNS TRIAL Allergies amoxicillin Allergy (Unknown, Verified 06/12/24 13:13) Unknown Medication List - Last Reconciled 06/12/24 by Katia Zambrano LPN albuterol 90 mcg/actuation mcg inhalation cyclobenzaprine 5 mg PO TID PRN diazepam 5 mg PO ONCE PRN diclofenac sodium 1% 2 grams topical QID fluticasone propion-salmeterol 100-50 mcg/dose (Advair Diskus) 1 inh inhalation Q12H fluticasone propionate 0.005% 1 appl topical DAILY gabapentin 300 mg PO BID ibuprofen 600 mg PO Q6H PRN lorazepam (Ativan) 1 mg PO ONCE meloxicam 15 mg PO DAILY methocarbamol 500 mg PO TID montelukast 10 mg PO BEDTIME ondansetron 4 mg PO Q8H PRN valacyclovir 500 mg PO DAILY varenicline 0.5 mg PO DAILY PFSH Social History (System 04/08/23 @ 14:22 by Kimmy Lantigua) Alcohol intake: current Patient Tobacco Use Status: Current everyday Tobacco user Physical Exam Vital Signs: Last Vital Signs Pulse 91 06/12/24 13:59 Resp 14 06/12/24 13:59 BP 110/72 06/12/24 13:59 Pulse Ox 96 06/12/24 13:59 Oxygen Delivery Method Room Air 06/12/24 13:59 Assessment & Plan Assessment & Plan (1) Intractable back pain: Code(s): M54.9 - Dorsalgia, unspecified Category: Medical (2) Lumbar spondylosis: Code(s): M47.816 - Spondylosis without myelopathy or radiculopathy, lumbar region Category: Medical Plan Percutaneous implantation of peripheral nerve stimulation Sprint system L5 right side. After the risks, benefits and alternatives were discussed with the patient and informed consent was obtained, patient was placed in the prone position and padded to foster comfort. Time out was performed delineating correct site and side of the procedure , name and of the patient, patient participated in time out procedure. C-arm was brought over the operating field and clear picture of the L5 lamina on the right was delineated on the screen. The upper central portion of the lamina was chosen as a target of the needle tip insertion . After identifying and marking the intended target, the skin around the planned entry point and the subcutaneous tissues were injected with local anesthetic forming skin wheal.. A percutaneous sleeve and stimulating probe lead introduction system were assembled, inserted and advanced through the skin wheal to the point of interest under C-arm view L5 right lamina., the introducer needle was delivered to a location in proximity to the nerve. Multiple stimulation parameters were used to deliver stimulation to the nerve in concert with stimulating at multiple positions around the nerve. The nerve target acquisition was confirmed noting generation of in the corresponding to the nerve being stimulated. Various electrical parameter combinations were tested, and the lead location was adjusted (physically relocated) until the patient indicated overlapping the distribution of the patient?s typical region of pain. The stimulating probe was removed from the introducer and a percutaneous lead was guided through the needle and delivered to a location in similar proximity to the nerve. Final location was verified with electrical stimulation. The introducer needle was removed, and the exposed end of the percutaneous lead was attached to an external stimulator unit. At the end of the case various electrical parameter combinations were again tested until the patient indicated paresthesia or muscle tension overlapping the distribution of the patient?s typical region of pain. After confirming that lead impedance was in the normal range, the external unit was detached, the needle was removed, and the lead was anchored at the skin. The lead was threaded into the connector block and electrical continuity and desired patient response was confirmed. The connector block was attached to the external stimulator unit. The site was covered with a sterile occlusive dressing and a image was taken to document final placement. Upon completion of the procedure the patient was taken outside the OR where she recovered uneventfully she went home without immediate complications. Orders: Orders FL guidance in treatment room 06/12/24 M54.9 - Dorsalgia, unspecified Coding Level of Care Code Procedure Only Diagnoses Intractable back pain M54.9 Lumbar spondylosis M47.816
[2024-06-12 13:59] VITALS: BP 110/72; PULSE 91; RESP 14; O2SAT 96
--- OUTSIDE RECORDS SUMMARY | 2024-06-13 21:20 | XMS_ITS ---
Author Organization [facility], Address [address] [place] [address] Care Team Providers Care Community Liaison Name Role Phone Bernadette Ma Unavailable [phone] ALLERGIES, ADVERSE REACTIONS, ALERTS Substance Code Code System Type Reaction Severity Status Start Date End Date Penicillins RxNorm Drug allergy () 0 Cymbalta 303703 RxNorm Drug allergy () 0 Penicillins Unknown Drug allergy () 1 MEDICATIONS Medication Code Code System Start Date Stop Date Route Dosage Directions Fill Instructions valacyclovir 0 RxNorm oral cyclobenzaprine 0 RxNorm oral Zithromax Z-Eric 620799 RxNorm 022 06/26 oral 2 omeprazole 0 RxNorm oral benzonatate 176002 RxNorm 022 07/01 oral 1 erythromycin 063394 RxNorm 04/10/20 24 ophthalmic (eye) 0.5 Bactrim DS 291254 RxNorm 023 oral 1 PROBLEMS Problem Name Code Code System Start Date End Date Stat us Unspecified abdominal pain (R10.9) 82950415 [facility] 06/10/2022 Inactive Encounter for test, result negative (Z32.02) [facility] 06/14/2022 Inactive Lower abdominal pain, unspecified (R10.30) [facility] 06/14/2022 Inactiv e Bronchitis, acute (J20.9) 50199313 [facility] 06/21/2022 Inactive Cough, unspecified (R05.9) [facility] 06/23/2022 Inactive Contact with and (suspected) exposure to other viral communicable diseases (Z20.828) [facility] 06/23/2022 Inactive Gastro-esophageal reflux disease 970928761 [facility] Active Unspecified asthma, uncomplicated 660865195 [facility] 04/09/2023 Resolved Disruption of wound, unspecified, initial encounter 237414808 [facility] 04/17/2023 Resolved Hordeolum externum left upper eyelid 399230848292032 [facility] 04/10/2024 Active ENCOUNTERS Encounter Diagnosis Code Code System Date Stat us Pneumonia, unspecified organism 777637461 [facility] 04/09 Active Unspecified asthma, uncomplicated 638675315 [facility] Active IMMUNIZATIONS * None VITAL SIGNS Code Code System Vitals Name Date Value and Un its 8462-4 [facility] Blood Pressure-Diastolic 04/09/2023 96 mmHg 8480-6 [facility] Blood Pressure-Systolic 04/09/2023 1 36 mmHg 8867-4 [facility] Heart Rate 04/09/2023 101 /min 9279-1 [facility] Respiratory Rate 04/09/2023 18 /min 8310-5 [facility] Body Temperature 04/09/2023 98.3 F 77744-3 [facility] Oxygen Saturation 04/09/2023 96 % SOCIAL [...] Assay, Amplified Probe Molecular RT-PCR / NAAT 00113 CPT 04/09/2023 Strep A, DNA, Amplified Probe PCR 61899 CPT 04/09/2023 GOALS * None HEALTH CONCERNS * No Health Concerns FUNCTIONAL AND COGNITIVE STATUS * None CONSULTATION NOTES * None DISCHARGE SUMMARY NOTES * None HISTORY AND PHYSICAL NOTES * Reason for visit - Illness IMAGING NOTES * None LABORATORY REPORT NARRATIVE NOTES * None PATHOLOGY REPORT NARRATIVE NOTES * None PROGRESS NOTES * None
--- OUTSIDE RECORDS SUMMARY | 2024-06-13 21:20 | XMS_ITS ---
Author Organization [facility], Address [address] [place] [address] Care Team Providers Care Curtain Cutter Name Role Phone Cristel Jin Unavailable [phone] ALLERGIES, ADVERSE REACTIONS, ALERTS Substance Code Code System Type Reaction Severity Status Start Date End Date Cymbalta 913020 RxNorm Drug allergy () 0 Penicillins RxNorm Drug allergy () 0 Penicillins Unknown Drug allergy () 1 MEDICATIONS Medication Code Code System Start Date Stop Date Route Dosage Directions Fill Instructions valacyclovir 0 RxNorm oral cyclobenzaprine 0 RxNorm oral Zithromax Z-Eric 219960 RxNorm 022 06/26 oral 2 omeprazole 0 RxNorm oral benzonatate 632933 RxNorm 022 07/01 oral 1 erythromycin 973452 RxNorm 04/10/20 24 ophthalmic (eye) 0.5 Bactrim DS 460675 RxNorm 023 oral 1 PROBLEMS Problem Name Code Code System Start Date End Date Stat Unspecified abdominal pain (R10.9) 66480671 [facility] 06/10/2022 Inactive Encounter for test, result negative (Z32.02) [facility] 06/14/2022 Inactive Lower abdominal pain, unspecified (R10.30) [facility] 06/14/2022 Inactiv e Bronchitis, acute (J20.9) 76654342 [facility] 06/21/2022 Inactive Cough, unspecified (R05.9) [facility] 06/23/2022 Inactive Contact with and (suspected) exposure to other viral communicable diseases (Z20.828) [facility] 06/23/2022 Inactive Gastro-esophageal reflux disease 421181542 [facility] Active Unspecified asthma, uncomplicated 117784488 [facility] 04/09/2023 Resolved Disruption of wound, unspecified, initial encounter 384259991 [facility] 04/17/2023 Resolved Hordeolum externum left upper eyelid 668113694110502 [facility] 04/10/2024 Active ENCOUNTERS Encounter Diagnosis Code Code System Date Stat us Contusion of right hand, incosmo tial encounter [id number] [facility] 03/14/2023 Active IMMUNIZATIONS * None VITAL SIGNS Code Code System Vitals Name Date Value and Un its 8462-4 [facility] Blood Pressure-Diastolic 03/14/2023 95 mmHg 8480-6 [facility] Blood Pressure-Systolic 03/14/2023 1 38 mmHg 8867-4 [facility] Heart Rate 03/14/2023 102 /min 9279-1 [facility] Respiratory Rate 03/14/2023 18 /min 8310-5 [facility] Body Temperature 03/14/2023 98.4 F 28284-8 [facility] Oxygen Saturation 03/14/2023 98 % SOCIAL [...]
--- OUTSIDE RECORDS SUMMARY | 2024-06-13 21:20 | XMS_ITS ---
Author Organization [facility], Address [address] [place] [address] Care Team Providers Care Refractory Furnace Designer Name Role Phone Laurie Tolliver Unavailable [phone] ALLERGIES, ADVERSE REACTIONS, ALERTS Substance Code Code System Type Reaction Severity Status Start Date End Date Penicillins RxNorm Drug allergy () 0 Penicillins Unknown Drug allergy () 1 Cymbalta 323586 RxNorm Drug allergy () 0 MEDICATIONS Medication Code Code System Start Date Stop Date Route Dosage Directions Fill Instructions valacyclovir 0 RxNorm oral cyclobenzaprine 0 RxNorm oral Zithromax Z-Eric 312006 RxNorm 022 06/26 oral 2 omeprazole 0 RxNorm oral benzonatate 895113 RxNorm 022 07/01 oral 1 erythromycin 301487 RxNorm 04/10/20 24 ophthalmic (eye) 0.5 Bactrim DS 791004 RxNorm 023 oral 1 PROBLEMS Problem Name Code Code System Start Date End Date Stat Unspecified abdominal pain (R10.9) 25266307 [facility] 06/10/2022 Inactive Encounter for test, result negative (Z32.02) [facility] 06/14/2022 Inactive Lower abdominal pain, unspecified (R10.30) [facility] 06/14/2022 Inactiv e Bronchitis, acute (J20.9) 84882394 [facility] 06/21/2022 Inactive Cough, unspecified (R05.9) [facility] 06/23/2022 Inactive Contact with and (suspected) exposure to other viral communicable diseases (Z20.828) [facility] 06/23/2022 Inactive Gastro-esophageal reflux disease 984342383 [facility] Active Unspecified asthma, uncomplicated 962976675 [facility] 04/09/2023 Resolved Disruption of wound, unspecified, initial encounter 115186781 [facility] 04/17/2023 Resolved Hordeolum externum left upper eyelid 707648823766501 [facility] 04/10/2024 Active ENCOUNTERS Encounter Diagnosis Code Code System Date Stat us Hordeolum externum left upper eyelid 894365191258275 [facility] 04/10/2024 Active IMMUNIZATIONS * None VITAL SIGNS Code Code System Vitals Name Date Value and Un its 8462-4 [facility] Blood Pressure-Diastolic 04/10/2024 84 mmHg 8480-6 [facility] Blood Pressure-Systolic 04/10/2024 1 12 mmHg 8867-4 [facility] Heart Rate 04/10/2024 94 /min 9279-1 [facility] Respiratory Rate 04/10/2024 18 /min 8310-5 [facility] Body Temperature 04/10/2024 98.8 F 98064-0 inc Oxygen Saturation 04/10/2024 97 % SOCIAL [...]
--- OUTSIDE RECORDS SUMMARY | 2024-06-13 21:20 | XMS_ITS ---
Author Organization [facility], Address [address] [place] [address] Care Team Providers Care Hospitality Manager Name Role Phone Cristel Jin Unavailable [phone] ALLERGIES, ADVERSE REACTIONS, ALERTS Substance Code Code System Type Reaction Severity Status Start Date End Date Cymbalta 141696 RxNorm Drug allergy () 0 Penicillins RxNorm Drug allergy () 0 Penicillins Unknown Drug allergy () 1 MEDICATIONS Medication Code Code System Start Date Stop Date Route Dosage Directions Fill Instructions valacyclovir 0 RxNorm oral cyclobenzaprine 0 RxNorm oral Zithromax Z-Eric 243842 RxNorm 022 06/26 oral 2 omeprazole 0 RxNorm oral benzonatate 628045 RxNorm 022 07/01 oral 1 erythromycin 724916 RxNorm 04/10/20 24 ophthalmic (eye) 0.5 Bactrim DS 758500 RxNorm 023 oral 1 PROBLEMS Problem Name Code Code System Start Date End Date Stat Unspecified abdominal pain (R10.9) 95576143 [facility] 06/10/2022 Inactive Encounter for test, result negative (Z32.02) [facility] 06/14/2022 Inactive Lower abdominal pain, unspecified (R10.30) [facility] 06/14/2022 Inactiv e Bronchitis, acute (J20.9) 27166086 [facility] 06/21/2022 Inactive Cough, unspecified (R05.9) [facility] 06/23/2022 Inactive Contact with and (suspected) exposure to other viral communicable diseases (Z20.828) [facility] 06/23/2022 Inactive Gastro-esophageal reflux disease 851381911 [facility] Active Unspecified asthma, uncomplicated 846626077 [facility] 04/09/2023 Resolved Disruption of wound, unspecified, initial encounter 450189028 [facility] 04/17/2023 Resolved Hordeolum externum left upper eyelid 786148166119974 [facility] 04/10/2024 Active ENCOUNTERS Encounter Diagnosis Code Code System Date Stat us Encounter for removal of sutures 47296186 [facility] 04/06/2023 Active IMMUNIZATIONS * None VITAL SIGNS Code Code System Vitals Name Date Value and Un its 8462-4 [facility] Blood Pressure-Diastolic 04/06/2023 106 mmHg 8480-6 [facility] Blood Pressure-Systolic 04/06/2023 1 59 mmHg 8867-4 [facility] Heart Rate 04/06/2023 103 /min 9279-1 [facility] Respiratory Rate 04/06/2023 18 /min 8310-5 [facility] Body Temperature 04/06/2023 98.7 F 91064-2 [facility] Oxygen Saturation 04/06/2023 97 % SOCIAL HISTORY * None PROCEDURES Code Code System Procedure Date Status Notes 64693 Cpt4 Suture Removal 04/06/2023 completed Deo Gallardo [...]
--- OUTSIDE RECORDS SUMMARY | 2024-06-13 21:21 | XMS_ITS ---
Author Organization [facility], Address [address] [place] [address] Care Team Providers Care Raw Cheese Worker Name Role Phone Deo Gallardo [phone] ALLERGIES, ADVERSE REACTIONS, ALERTS Substance Code Code System Type Reaction Severity Status Start Date End Date Cymbalta 603470 RxNorm Drug allergy () 0 Penicillins RxNorm Drug allergy () 0 Penicillins Unknown Drug allergy () 1 MEDICATIONS Medication Code Code System Start Date Stop Date Route Dosage Directions Fill Instructions valacyclovir 0 RxNorm oral cyclobenzaprine 0 RxNorm oral Zithromax Z-Eric 205084 RxNorm 022 06/26 oral 2 omeprazole 0 RxNorm oral benzonatate 696513 RxNorm 022 07/01 oral 1 erythromycin 389560 RxNorm 04/10/20 24 ophthalmic (eye) 0.5 Bactrim DS 194845 RxNorm 023 oral 1 PROBLEMS Problem Name Code Code System Start Date End Date Stat Unspecified abdominal pain (R10.9) 72848166 [facility] 06/10/2022 Inactive Encounter for test, result negative (Z32.02) [facility] 06/14/2022 Inactive Lower abdominal pain, unspecified (R10.30) [facility] 06/14/2022 Inactiv e Bronchitis, acute (J20.9) 58239995 [facility] 06/21/2022 Inactive Cough, unspecified (R05.9) [facility] 06/23/2022 Inactive Contact with and (suspected) exposure to other viral communicable diseases (Z20.828) [facility] 06/23/2022 Inactive Gastro-esophageal reflux disease 990301979 [facility] Active Unspecified asthma, uncomplicated 299984993 [facility] 04/09/2023 Resolved Disruption of wound, unspecified, initial encounter 692232884 [facility] 04/17/2023 Resolved Hordeolum externum left upper eyelid 824880078327329 [facility] 04/10/2024 Active ENCOUNTERS Encounter Diagnosis Code Code System Date Stat us Disruption of wound, unspeci fied, initial encounter 077296033 [facility] 04/17/2023 Active IMMUNIZATIONS * None VITAL SIGNS Code Code System Vitals Name Date Value and Un its 8462-4 [facility] Blood Pressure-Diastolic 04/17/2023 80 mmHg 8480-6 [facility] Blood Pressure-Systolic 04/17/2023 1 36 mmHg 8867-4 [facility] Heart Rate 04/17/2023 95 /min 9279-1 [facility] Respiratory Rate 04/17/2023 18 /min 8310-5 [facility] Body Temperature 04/17/2023 97.1 F 49049-1 [facility] Oxygen Saturation 04/17/2023 99 % SOCIAL [...]
--- OUTSIDE RECORDS SUMMARY | 2024-06-13 21:21 | XMS_ITS ---
Author Organization [facility], Address [address] [place] [address] Care Team Providers Care Bus And Sys Integration Senior Manager Name Role Phone Laurie Tolliver Unavailable ALLERGIES, ADVERSE REACTIONS, ALERTS Substance Code Code System Type Reaction Severity Status Start Date End Date Cymbalta 132458 RxNorm Drug allergy () 0 Penicillins Unknown Drug allergy () 1 Penicillins RxNorm Drug allergy () 0 MEDICATIONS Medication Code Code System Start Date Stop Date Route Dosage Directions Fill Instructions valacyclovir 0 RxNorm oral cyclobenzaprine 0 RxNorm oral Zithromax Z-Eric 101955 RxNorm 022 06/26 oral 2 omeprazole 0 RxNorm oral benzonatate 826430 RxNorm 022 07/01 oral 1 erythromycin 157540 RxNorm 04/10/20 24 ophthalmic (eye) 0.5 Bactrim DS 367756 RxNorm 023 oral 1 PROBLEMS Problem Name Code Code System Start Date End Date Stat Unspecified abdominal pain (R10.9) 42736439 [facility] 06/10/2022 Inactive Encounter for test, result negative (Z32.02) [facility] 06/14/2022 Inactive Lower abdominal pain, unspecified (R10.30) [facility] 06/14/2022 Inactiv e Bronchitis, acute (J20.9) 26211611 [facility] 06/21/2022 Inactive Cough, unspecified (R05.9) [facility] 06/23/2022 Inactive Contact with and (suspected) exposure to other viral communicable diseases (Z20.828) [facility] 06/23/2022 Inactive Gastro-esophageal reflux disease 412890838 [facility] Active Unspecified asthma, uncomplicated 903453370 [facility] 04/09/2023 Resolved Disruption of wound, unspecified, initial encounter 224786510 [facility] 04/17/2023 Resolved Hordeolum externum left upper eyelid 119792669862504 [facility] 04/10/2024 Active ENCOUNTERS Encounter Diagnosis Code Code System Date Stat us Hordeolum externum left upper eyelid 144600052515473 [facility] 04/10/2024 Active IMMUNIZATIONS * None VITAL SIGNS Code Code System Vitals Name Date Value and Un its 8462-4 [facility] Blood Pressure-Diastolic 04/10/2024 84 mmHg 8480-6 [facility] Blood Pressure-Systolic 04/10/2024 1 12 mmHg 8867-4 [facility] Heart Rate 04/10/2024 94 /min 9279-1 [facility] Respiratory Rate 04/10/2024 18 /min 8310-5 [facility] Body Temperature 04/10/2024 98.8 F 37904-8 inc Oxygen Saturation 04/10/2024 97 % SOCIAL [...]
--- OUTSIDE RECORDS SUMMARY | 2024-06-13 21:21 | XMS_ITS ---
Author Organization [facility], Address [address] [place] [address] Care Team Providers Care Rn Pool Name Role Phone Cristel Jin Unavailable [phone] ALLERGIES, ADVERSE REACTIONS, ALERTS Substance Code Code System Type Reaction Severity Status Start Date End Date Cymbalta 064463 RxNorm Drug allergy () 0 Penicillins Unknown Drug allergy () 1 Penicillins RxNorm Drug allergy () 0 MEDICATIONS Medication Code Code System Start Date Stop Date Route Dosage Directions Fill Instructions valacyclovir 0 RxNorm oral cyclobenzaprine 0 RxNorm oral Zithromax Z-Eric 033838 RxNorm 022 06/26 oral 2 omeprazole 0 RxNorm oral benzonatate 260621 RxNorm 022 07/01 oral 1 erythromycin 177174 RxNorm 04/10/20 24 ophthalmic (eye) 0.5 Bactrim DS 699774 RxNorm 023 oral 1 PROBLEMS Problem Name Code Code System Start Date End Date Stat Unspecified abdominal pain (R10.9) 90739795 [facility] 06/10/2022 Inactive Encounter for test, result negative (Z32.02) [facility] 06/14/2022 Inactive Lower abdominal pain, unspecified (R10.30) [facility] 06/14/2022 Inactiv e Bronchitis, acute (J20.9) 59341607 [facility] 06/21/2022 Inactive Cough, unspecified (R05.9) [facility] 06/23/2022 Inactive Contact with and (suspected) exposure to other viral communicable diseases (Z20.828) [facility] 06/23/2022 Inactive Gastro-esophageal reflux disease 432674110 [facility] Active Unspecified asthma, uncomplicated 559867841 [facility] 04/09/2023 Resolved Disruption of wound, unspecified, initial encounter 196325641 [facility] 04/17/2023 Resolved Hordeolum externum left upper eyelid 672414638754441 [facility] 04/10/2024 Active ENCOUNTERS Encounter Diagnosis Code Code System Date Stat us Contusion of right hand, incomso tial encounter 20952150199652128 [facility] 03/14/2023 Active IMMUNIZATIONS * None VITAL SIGNS Code Code System Vitals Name Date Value and Un its 8462-4 [facility] Blood Pressure-Diastolic 03/14/2023 95 mmHg 8480-6 [facility] Blood Pressure-Systolic 03/14/2023 1 38 mmHg 8867-4 [facility] Heart Rate 03/14/2023 102 /min 9279-1 [facility] Respiratory Rate 03/14/2023 18 /min 8310-5 [facility] Body Temperature 03/14/2023 98.4 F 65094-6 [facility] Oxygen Saturation 03/14/2023 98 % SOCIAL [...]
--- OUTSIDE RECORDS SUMMARY | 2024-06-13 21:21 | XMS_ITS ---
Author Organization [facility], Address [address] [place] [address] Care Team Providers Care Aircraft Armament Mechanic Name Role Phone Cristel Jin Unavailable [phone] ALLERGIES, ADVERSE REACTIONS, ALERTS Substance Code Code System Type Reaction Severity Status Start Date End Date Penicillins RxNorm Drug allergy () 0 Penicillins Unknown Drug allergy () 1 Cymbalta 547630 RxNorm Drug allergy () 0 MEDICATIONS Medication Code Code System Start Date Stop Date Route Dosage Directions Fill Instructions valacyclovir 0 RxNorm oral cyclobenzaprine 0 RxNorm oral Zithromax Z-Eric 356102 RxNorm 022 06/26 oral 2 omeprazole 0 RxNorm oral benzonatate 903879 RxNorm 022 07/01 oral 1 erythromycin 108790 RxNorm 04/10/20 24 ophthalmic (eye) 0.5 Bactrim DS 101732 RxNorm 023 oral 1 PROBLEMS Problem Name Code Code System Start Date End Date Stat Unspecified abdominal pain (R10.9) 87699425 [facility] 06/10/2022 Inactive Encounter for test, result negative (Z32.02) [facility] 06/14/2022 Inactive Lower abdominal pain, unspecified (R10.30) [facility] 06/14/2022 Inactiv e Bronchitis, acute (J20.9) 85735872 [facility] 06/21/2022 Inactive Cough, unspecified (R05.9) [facility] 06/23/2022 Inactive Contact with and (suspected) exposure to other viral communicable diseases (Z20.828) [facility] 06/23/2022 Inactive Gastro-esophageal reflux disease 822309207 [facility] Active Unspecified asthma, uncomplicated 295691695 [facility] 04/09/2023 Resolved Disruption of wound, unspecified, initial encounter 515095781 [facility] 04/17/2023 Resolved Hordeolum externum left upper eyelid 781503314725788 [facility] 04/10/2024 Active ENCOUNTERS Encounter Diagnosis Code Code System Date Stat us Encounter for removal of sutures 13673464 [facility] 04/06/2023 Active IMMUNIZATIONS * None VITAL SIGNS Code Code System Vitals Name Date Value and Un its 8462-4 [facility] Blood Pressure-Diastolic 04/06/2023 106 mmHg 8480-6 [facility] Blood Pressure-Systolic 04/06/2023 1 59 mmHg 8867-4 [facility] Heart Rate 04/06/2023 103 /min 9279-1 [facility] Respiratory Rate 04/06/2023 18 /min 8310-5 [facility] Body Temperature 04/06/2023 98.7 F 28705-8 [facility] Oxygen Saturation 04/06/2023 97 % SOCIAL HISTORY * None PROCEDURES Code Code System Procedure Date Status Notes 71847 Cpt4 Suture Removal 04/06/2023 completed Deo Gallardo [...]
--- OUTSIDE RECORDS SUMMARY | 2024-06-13 21:21 | XMS_ITS ---
Author Organization [facility], Address [address] [place] [address] Care Team Providers Care Training Director Name Role Phone Bernadette Ma Unavailable [phone] ALLERGIES, ADVERSE REACTIONS, ALERTS Substance Code Code System Type Reaction Severity Status Start Date End Date Cymbalta 543378 RxNorm Drug allergy () 0 Penicillins Unknown Drug allergy () 1 Penicillins RxNorm Drug allergy () 0 MEDICATIONS Medication Code Code System Start Date Stop Date Route Dosage Directions Fill Instructions valacyclovir 0 RxNorm oral cyclobenzaprine 0 RxNorm oral Zithromax Z-Eric 477445 RxNorm 022 06/26 oral 2 omeprazole 0 RxNorm oral benzonatate 074726 RxNorm 022 07/01 oral 1 erythromycin 951217 RxNorm 04/10/20 24 ophthalmic (eye) 0.5 Bactrim DS 457507 RxNorm 023 oral 1 PROBLEMS Problem Name Code Code System Start Date End Date Stat Unspecified abdominal pain (R10.9) 60785115 [facility] 06/10/2022 Inactive Encounter for test, result negative (Z32.02) [facility] 06/14/2022 Inactive Lower abdominal pain, unspecified (R10.30) [facility] 06/14/2022 Inactiv e Bronchitis, acute (J20.9) 90542465 [facility] 06/21/2022 Inactive Cough, unspecified (R05.9) [facility] 06/23/2022 Inactive Contact with and (suspected) exposure to other viral communicable diseases (Z20.828) [facility] 06/23/2022 Inactive Gastro-esophageal reflux disease 541113302 [facility] Active Unspecified asthma, uncomplicated 350425747 [facility] 04/09/2023 Resolved Disruption of wound, unspecified, initial encounter 917726480 [facility] 04/17/2023 Resolved Hordeolum externum left upper eyelid 581782376213119 [facility] 04/10/2024 Active ENCOUNTERS Encounter Diagnosis Code Code System Date Stat us Pneumonia, unspecified organism 881512334 [facility] 04/09 Active Unspecified asthma, uncomplicated 684785716 [facility] Active IMMUNIZATIONS * None VITAL SIGNS Code Code System Vitals Name Date Value and Un its 8462-4 [facility] Blood Pressure-Diastolic 04/09/2023 96 mmHg 8480-6 [facility] Blood Pressure-Systolic 04/09/2023 1 36 mmHg 8867-4 [facility] Heart Rate 04/09/2023 101 /min 9279-1 [facility] Respiratory Rate 04/09/2023 18 /min 8310-5 Loinc Body Temperature 04/09/2023 98.3 F 33631-5 [facility] Oxygen Saturation 04/09/2023 96 % SOCIAL [...] Assay, Amplified Probe Molecular RT-PCR / NAAT 38760 CPT 04/09/2023 Strep A, DNA, Amplified Probe PCR 55610 CPT 04/09/2023 GOALS * None HEALTH CONCERNS * No Health Concerns FUNCTIONAL AND COGNITIVE STATUS * None CONSULTATION NOTES * None DISCHARGE SUMMARY NOTES * None HISTORY AND PHYSICAL NOTES * Reason for visit - Illness IMAGING NOTES * None LABORATORY REPORT NARRATIVE NOTES * None PATHOLOGY REPORT NARRATIVE NOTES * None PROGRESS NOTES * None
--- OUTSIDE RECORDS SUMMARY | 2024-06-13 21:21 | XMS_ITS ---
Author Organization [facility], Address [address] [place] [address] Care Team Providers Care [employer] Operations Consultant Name Role Phone Deo Gallardo [phone] ALLERGIES, ADVERSE REACTIONS, ALERTS Substance Code Code System Type Reaction Severity Status Start Date End Date Penicillins RxNorm Drug allergy () 0 Penicillins Unknown Drug allergy () 1 Cymbalta 798408 RxNorm Drug allergy () 0 MEDICATIONS Medication Code Code System Start Date Stop Date Route Dosage Directions Fill Instructions valacyclovir 0 RxNorm oral cyclobenzaprine 0 RxNorm oral Zithromax Z-Eric 633181 RxNorm 022 06/26 oral 2 omeprazole 0 RxNorm oral benzonatate 889331 RxNorm 022 07/01 oral 1 erythromycin 005257 RxNorm 04/10/20 24 ophthalmic (eye) 0.5 Bactrim DS 441860 RxNorm 023 oral 1 PROBLEMS Problem Name Code Code System Start Date End Date Stat Unspecified abdominal pain (R10.9) 45571690 [facility] 06/10/2022 Inactive Encounter for test, result negative (Z32.02) [facility] 06/14/2022 Inactive Lower abdominal pain, unspecified (R10.30) [facility] 06/14/2022 Inactiv e Bronchitis, acute (J20.9) 30986742 [facility] 06/21/2022 Inactive Cough, unspecified (R05.9) [facility] 06/23/2022 Inactive Contact with and (suspected) exposure to other viral communicable diseases (Z20.828) [facility] 06/23/2022 Inactive Gastro-esophageal reflux disease 892546115 [facility] Active Unspecified asthma, uncomplicated 356369959 [facility] 04/09/2023 Resolved Disruption of wound, unspecified, initial encounter 175408146 [facility] 04/17/2023 Resolved Hordeolum externum left upper eyelid 206604141390845 [facility] 04/10/2024 Active ENCOUNTERS Encounter Diagnosis Code Code System Date Stat us Disruption of wound, unspeci fied, initial encounter 711147297 [facility] 04/17/2023 Active IMMUNIZATIONS * None VITAL SIGNS Code Code System Vitals Name Date Value and Un its 8462-4 [facility] Blood Pressure-Diastolic 04/17/2023 80 mmHg 8480-6 [facility] Blood Pressure-Systolic 04/17/2023 1 36 mmHg 8867-4 [facility] Heart Rate 04/17/2023 95 /min 9279-1 [facility] Respiratory Rate 04/17/2023 18 /min 8310-5 Loinc Body Temperature 04/17/2023 97.1 F 25866-9 Lo[facility] Oxygen Saturation 04/17/2023 99 % SOCIAL [...]
== END 2024-06-12 14:20 | disposition home or self-care (01) ==
LOC: HO.PMCPRC 13:03
PROVIDERS: PCP Internal Medicine; Visit Provider Anesthesiology
DX: M47.816 Spondylosis without myelopathy or radiculopathy, lumbar region (principal); M54.9 Dorsalgia, unspecified
CPT/HCPCS: 64555

== ENCOUNTER 2024-06-18 09:36 | Outpatient (AMB) | payer OTHER, SELFPAY ==
--- OUTSIDE RECORDS SUMMARY | 2024-06-18 09:39 | XMS_ITS ---
Author Organization [facility], Address [address] [place] [address] Care Team Providers Care Visiting Teacher Name Role Phone Cristel Jni Unavailable [phone] ALLERGIES, ADVERSE REACTIONS, ALERTS Substance Code Code System Type Reaction Severity Status Start Date End Date Penicillins RxNorm Drug allergy () 0 Cymbalta 108882 RxNorm Drug allergy () 0 Penicillins Unknown Drug allergy () 1 MEDICATIONS Medication Code Code System Start Date Stop Date Route Dosage Directions Fill Instructions valacyclovir 0 RxNorm oral cyclobenzaprine 0 RxNorm oral Zithromax Z-Eric 686602 RxNorm 022 06/26 oral 2 omeprazole 0 RxNorm oral benzonatate 810364 RxNorm 022 07/01 oral 1 erythromycin 225127 RxNorm 04/10/20 24 ophthalmic (eye) 0.5 Bactrim DS 449881 RxNorm 023 oral 1 PROBLEMS Problem Name Code Code System Start Date End Date Stat Unspecified abdominal pain (R10.9) 61189556 [facility] 06/10/2022 Inactive Encounter for test, result negative (Z32.02) [facility] 06/14/2022 Inactive Lower abdominal pain, unspecified (R10.30) [facility] 06/14/2022 Inactiv e Bronchitis, acute (J20.9) 86608370 [facility] 06/21/2022 Inactive Cough, unspecified (R05.9) [facility] 06/23/2022 Inactive Contact with and (suspected) exposure to other viral communicable diseases (Z20.828) [facility] 06/23/2022 Inactive Gastro-esophageal reflux disease 717690198 [facility] Active Unspecified asthma, uncomplicated 479589808 [facility] 04/09/2023 Resolved Disruption of wound, unspecified, initial encounter 363631856 [facility] 04/17/2023 Resolved Hordeolum externum left upper eyelid 887963291993523 [facility] 04/10/2024 Active ENCOUNTERS Encounter Diagnosis Code Code System Date Stat us Contusion of right hand, incosmo tial encounter 73833910072489099 [facility] 03/14/2023 Active IMMUNIZATIONS * None VITAL SIGNS Code Code System Vitals Name Date Value and Un its 8462-4 [facility] Blood Pressure-Diastolic 03/14/2023 95 mmHg 8480-6 [facility] Blood Pressure-Systolic 03/14/2023 1 38 mmHg 8867-4 [facility] Heart Rate 03/14/2023 102 /min 9279-1 [facility] Respiratory Rate 03/14/2023 18 /min 8310-5 [facility] Body Temperature 03/14/2023 98.4 F 27904-1 [facility] Oxygen Saturation 03/14/2023 98 % SOCIAL [...]
--- OUTSIDE RECORDS SUMMARY | 2024-06-18 09:39 | XMS_ITS | Continuity of Care Document ---
Author Organization [facility] Address [address] [place] [address]- Care Team Providers Care Physicist Solid State Name Role Phone Not on Staff, PCP Primary Care Physician Unavail able Encounter [facility] [id number] Date(s): 05/16/24 - 06/15/24 [facility] [address] [place], [place] [address] Attending Physician: Olena Vogt Admitting Physician: Olena Vogt Referring Physician: Olena Vogt Encounter Type: Triage Allergies, Adverse Reactions, Alerts Substance Criticality Severity Reaction Reaction Severity Status amoxicillin Active penicillin HIVES Active Cymbalta Active Medications ibuprofen 600 mg oral tablet 600 mg, By Mouth, 4 times a day, take with Tylenol, # 50 tablet, Refills 0, Tot. Refills 0, Maintenance, 04/18/24 10:36:00 AM EDT, Route to Pharmacy Electronically, [id number], Partial fill upon patient request if the prescription is for a schedule II opioid drug., 165, cm, 04/18/24 4:32:00 EDT, Height, 86.5, kg, 04/16/24 11:59:00 EDT, Dry Weight Start Date: 04/18/24 Status: Ordered Quantity: 50.0 Unit: tablet Repeat number: 1 Nicotine Lozenge 0 Refills, Maintenance, 03/05/24 1:51:00 PM EDT, Partial fill upon patient request if the prescription is for a schedule II opioid drug. Start Date: 03/05/24 Status: Ordered Repeat number: 1 Omeprazole See Instructions, By Mouth Daily, 0 Refills, Maintenance, 08/19/21 10:11:00 PM EST, Partial fill upon patient request if the prescription is for a schedule II opioid drug. Start Date: 08/19/21 Status: Ordered Repeat number: 1 valACYclovir 500 mg oral tablet 500 mg, 1, tablet, By Mouth, Daily, # 30 tablet, Refills 0, Maintenance, 04/16/24 6:13:00 AM EDT, Partial fill upon patient request if the prescription is for a schedule II opioid drug. Start Date: 04/16/24 Status: Ordered Quantity: 30.0 Unit: tablet Repeat number: 1 Problem List Condition Confirmation Course Effective Dates Status Health St atus Informant Asthma Confirmed Active Adult BMI 31.0-31.9 kg/sq m Confirmed Active Fatty liver Confirmed Active Social History Social History Type Response Tobacco Use: 4 or less cigar ettes(less than 1/4 pack)/day in last 30 days. Interested in cessation: No. Sex Sex Representation Female (finding) Patient Care team information Care Team Personnel Name: Not on Staff, PCP Position: S Physician (General Medicine) Member Role: PCP Care Team Related Persons Name: MARY KAY MARSHLAL Name: SNEHAL SIMMONS Name: MAGDY MELÉNDEZ Insurance Providers Guarantor name: BALBINA JOSE Health Plan Information #: 1 Payer: [employer] Member Number: NA Policy Number: NA Group Number: NA
--- OUTSIDE RECORDS SUMMARY | 2024-06-18 09:39 | XMS_ITS ---
Author Organization [facility], Address [address] [place] [address] Care Team Providers Care Orthopedics Pediatric Physician Name Role Phone Cristel Jin Unavailable [phone] ALLERGIES, ADVERSE REACTIONS, ALERTS Substance Code Code System Type Reaction Severity Status Start Date End Date Penicillins RxNorm Drug allergy () 0 Cymbalta 065223 RxNorm Drug allergy () 0 Penicillins Unknown Drug allergy () 1 MEDICATIONS Medication Code Code System Start Date Stop Date Route Dosage Directions Fill Instructions valacyclovir 0 RxNorm oral cyclobenzaprine 0 RxNorm oral Zithromax Z-Eric 278108 RxNorm 022 06/26 oral 2 omeprazole 0 RxNorm oral benzonatate 917416 RxNorm 022 07/01 oral 1 erythromycin 345199 RxNorm 04/10/20 24 ophthalmic (eye) 0.5 Bactrim DS 882307 RxNorm 023 oral 1 PROBLEMS Problem Name Code Code System Start Date End Date Stat Unspecified abdominal pain (R10.9) 13477957 [facility] 06/10/2022 Inactive Encounter for test, result negative (Z32.02) [facility] 06/14/2022 Inactive Lower abdominal pain, unspecified (R10.30) [facility] 06/14/2022 Inactiv e Bronchitis, acute (J20.9) 19318011 [facility] 06/21/2022 Inactive Cough, unspecified (R05.9) [facility] 06/23/2022 Inactive Contact with and (suspected) exposure to other viral communicable diseases (Z20.828) [facility] 06/23/2022 Inactive Gastro-esophageal reflux disease 974620083 [facility] Active Unspecified asthma, uncomplicated 857598789 [facility] 04/09/2023 Resolved Disruption of wound, unspecified, initial encounter 523106276 [facility] 04/17/2023 Resolved Hordeolum externum left upper eyelid 397199946629398 [facility] 04/10/2024 Active ENCOUNTERS Encounter Diagnosis Code Code System Date Stat us Encounter for removal of sutures 16188609 [facility] 04/06/2023 Active IMMUNIZATIONS * None VITAL SIGNS Code Code System Vitals Name Date Value and Un its 8462-4 [facility] Blood Pressure-Diastolic 04/06/2023 106 mmHg 8480-6 [facility] Blood Pressure-Systolic 04/06/2023 1 59 mmHg 8867-4 [facility] Heart Rate 04/06/2023 103 /min 9279-1 [facility] Respiratory Rate 04/06/2023 18 /min 8310-5 [facility] Body Temperature 04/06/2023 98.7 F 04639-0 [facility] Oxygen Saturation 04/06/2023 97 % SOCIAL HISTORY * None PROCEDURES Code Code System Procedure Date Status Notes 86146 Cpt4 Suture Removal 04/06/2023 completed Deo Gallardo [...]
--- OUTSIDE RECORDS SUMMARY | 2024-06-18 09:39 | XMS_ITS | Continuity of Care Document ---
Author Organization [facility] Address [address] [place] [address]- Care Team Providers Care Set Up Mechanic Heading Machines Name Role Phone Not on Staff, PCP Primary Care Physician Unavail able Encounter [facility] [id number] Date(s): 05/15/24 - 06/14/24 [facility] [address] [place], [place] [address] Encounter Type: Triage Allergies, Adverse Reactions, Alerts Substance Criticality Severity Reaction Reaction Severity Status amoxicillin Active Cymbalta Active penicillin HIVES Active Medications ibuprofen 600 mg oral tablet [...] Care Team Related Persons Name: MARY KAY MARSHALL Name: SNEHAL SIMMONS Name: MAGDY MELÉNDEZ Insurance Providers Guarantor name: BALBINA JOSE [employer] Plan Information #: 1 Payer: [employer] Member Number: NA Policy Number: NA Group Number: NA
--- OUTSIDE RECORDS SUMMARY | 2024-06-18 09:39 | XMS_ITS ---
Author Organization [facility], Address [address] [place] [address] Care Team Providers Care Television Installer Helper Name Role Phone Bernadette Ma Unavailable [phone] ALLERGIES, ADVERSE REACTIONS, ALERTS Substance Code Code System Type Reaction Severity Status Start Date End Date Penicillins RxNorm Drug allergy () 0 Cymbalta 185971 RxNorm Drug allergy () 0 Penicillins Unknown Drug allergy () 1 MEDICATIONS Medication Code Code System Start Date Stop Date Route Dosage Directions Fill Instructions valacyclovir 0 RxNorm oral cyclobenzaprine 0 RxNorm oral Zithromax Z-Eric 046487 RxNorm 022 06/26 oral 2 omeprazole 0 RxNorm oral benzonatate 483884 RxNorm 022 07/01 oral 1 erythromycin 510179 RxNorm 04/10/20 24 ophthalmic (eye) 0.5 Bactrim DS 629985 RxNorm 023 oral 1 PROBLEMS Problem Name Code Code System Start Date End Date Stat us Unspecified abdominal pain (R10.9) 68134124 [facility] 06/10/2022 Inactive Encounter for test, result negative (Z32.02) [facility] 06/14/2022 Inactive Lower abdominal pain, unspecified (R10.30) [facility] 06/14/2022 Inactiv e Bronchitis, acute (J20.9) 42559552 [facility] 06/21/2022 Inactive Cough, unspecified (R05.9) [facility] 06/23/2022 Inactive Contact with and (suspected) exposure to other viral communicable diseases (Z20.828) [facility] 06/23/2022 Inactive Gastro-esophageal reflux disease 245986612 [facility] Active Unspecified asthma, uncomplicated 003170754 [facility] 04/09/2023 Resolved Disruption of wound, unspecified, initial encounter 241240421 [facility] 04/17/2023 Resolved Hordeolum externum left upper eyelid 625980741804717 [facility] 04/10/2024 Active ENCOUNTERS Encounter Diagnosis Code Code System Date Stat us Pneumonia, unspecified organism 724035495 [facility] 04/09 Active Unspecified asthma, uncomplicated 144143752 [facility] Active IMMUNIZATIONS * None VITAL SIGNS Code Code System Vitals Name Date Value and Un its 8462-4 [facility] Blood Pressure-Diastolic 04/09/2023 96 mmHg 8480-6 [facility] Blood Pressure-Systolic 04/09/2023 1 36 mmHg 8867-4 [facility] Heart Rate 04/09/2023 101 /min 9279-1 [facility] Respiratory Rate 04/09/2023 18 /min 8310-5 [facility] Body Temperature 04/09/2023 98.3 F 24292-8 [facility] Oxygen Saturation 04/09/2023 96 % SOCIAL [...] Assay, Amplified Probe Molecular RT-PCR / NAAT 42245 CPT 04/09/2023 Strep A, DNA, Amplified Probe PCR 16850 CPT 04/09/2023 GOALS * None HEALTH CONCERNS * No Health Concerns FUNCTIONAL AND COGNITIVE STATUS * None CONSULTATION NOTES * None DISCHARGE SUMMARY NOTES * None HISTORY AND PHYSICAL NOTES * Reason for visit - Illness IMAGING NOTES * None LABORATORY REPORT NARRATIVE NOTES * None PATHOLOGY REPORT NARRATIVE NOTES * None PROGRESS NOTES * None
--- OUTSIDE RECORDS SUMMARY | 2024-06-18 09:39 | XMS_ITS ---
Author Organization [facility], Address [address] [place] [address] Care Team Providers Care Delivery Room Clerk Name Role Phone Laurie Tolliver Unavailable [phone] ALLERGIES, ADVERSE REACTIONS, ALERTS Substance Code Code System Type Reaction Severity Status Start Date End Date Penicillins Unknown Drug allergy () 1 Cymbalta 941840 RxNorm Drug allergy () 0 Penicillins RxNorm Drug allergy () 0 MEDICATIONS Medication Code Code System Start Date Stop Date Route Dosage Directions Fill Instructions valacyclovir 0 RxNorm oral cyclobenzaprine 0 RxNorm oral Zithromax Z-Eric 550293 RxNorm 022 06/26 oral 2 omeprazole 0 RxNorm oral benzonatate 087392 RxNorm 022 07/01 oral 1 erythromycin 083996 RxNorm 04/10/20 24 ophthalmic (eye) 0.5 Bactrim DS 748572 RxNorm 023 oral 1 PROBLEMS Problem Name Code Code System Start Date End Date Stat Unspecified abdominal pain (R10.9) 94896159 [facility] 06/10/2022 Inactive Encounter for test, result negative (Z32.02) [facility] 06/14/2022 Inactive Lower abdominal pain, unspecified (R10.30) [facility] 06/14/2022 Inactiv e Bronchitis, acute (J20.9) 80145887 [facility] 06/21/2022 Inactive Cough, unspecified (R05.9) [facility] 06/23/2022 Inactive Contact with and (suspected) exposure to other viral communicable diseases (Z20.828) [facility] 06/23/2022 Inactive Gastro-esophageal reflux disease 533912332 [facility] Active Unspecified asthma, uncomplicated 094627733 [facility] 04/09/2023 Resolved Disruption of wound, unspecified, initial encounter 050660255 [facility] 04/17/2023 Resolved Hordeolum externum left upper eyelid 584005753894758 [facility] 04/10/2024 Active ENCOUNTERS Encounter Diagnosis Code Code System Date Stat us Hordeolum externum left upper eyelid 481358160497788 [facility] 04/10/2024 Active IMMUNIZATIONS * None VITAL SIGNS Code Code System Vitals Name Date Value and Un its 8462-4 [facility] Blood Pressure-Diastolic 04/10/2024 84 mmHg 8480-6 [facility] Blood Pressure-Systolic 04/10/2024 1 12 mmHg 8867-4 [facility] Heart Rate 04/10/2024 94 /min 9279-1 [facility] Respiratory Rate 04/10/2024 18 /min 8310-5 [facility] Body Temperature 04/10/2024 98.8 F 36977-1 inc Oxygen Saturation 04/10/2024 97 % SOCIAL [...]
--- OUTSIDE RECORDS SUMMARY | 2024-06-18 09:39 | XMS_ITS | Continuity of Care Document ---
Author Organization [facility] Address [address] [place] [address]- Care Team Providers Care Cell Efficiency Supervisor Name Role Phone Not on Staff, PCP Primary Care Physician Unavail able Encounter [facility] [id number] Date(s): 05/15/24 - [facility]15/[facility] [address] [place], [place] [address] Attending Physician: Michelle Sparks DO Encounter Type: Pre-OutPatient One Time Allergies, Adverse Reactions, Alerts Substance Criticality Severity [...] MAGDY MELÉNDEZ Insurance Providers Guarantor name: BALBINA GARCIA Health Plan Information #: 1 Payer: [employer] Member Number: [id number] Policy Number: NA Group Number: NA Health Plan Information #: 2 Payer: [employer] Member Number: [id number] Policy Number: NA Group Number: NA
--- OUTSIDE RECORDS SUMMARY | 2024-06-18 09:39 | XMS_ITS ---
Author Organization [facility], Address [address] [place] [address] Care Team Providers Care Yard Hand Name Role Phone Deo Gallardo [phone] ALLERGIES, ADVERSE REACTIONS, ALERTS Substance Code Code System Type Reaction Severity Status Start Date End Date Cymbalta 886644 RxNorm Drug allergy () 0 Penicillins RxNorm Drug allergy () 0 Penicillins Unknown Drug allergy () 1 MEDICATIONS Medication Code Code System Start Date Stop Date Route Dosage Directions Fill Instructions valacyclovir 0 RxNorm oral cyclobenzaprine 0 RxNorm oral Zithromax Z-Eric 287582 RxNorm 022 06/26 oral 2 omeprazole 0 RxNorm oral benzonatate 888346 RxNorm 022 07/01 oral 1 erythromycin 122043 RxNorm 04/10/20 24 ophthalmic (eye) 0.5 Bactrim DS 671013 RxNorm 023 oral 1 PROBLEMS Problem Name Code Code System Start Date End Date Stat Unspecified abdominal pain (R10.9) 87972372 [facility] 06/10/2022 Inactive Encounter for test, result negative (Z32.02) [facility] 06/14/2022 Inactive Lower abdominal pain, unspecified (R10.30) [facility] 06/14/2022 Inactiv e Bronchitis, acute (J20.9) 06152584 [facility] 06/21/2022 Inactive Cough, unspecified (R05.9) [facility] 06/23/2022 Inactive Contact with and (suspected) exposure to other viral communicable diseases (Z20.828) [facility] 06/23/2022 Inactive Gastro-esophageal reflux disease 289731432 [facility] Active Unspecified asthma, uncomplicated 789112897 [facility] 04/09/2023 Resolved Disruption of wound, unspecified, initial encounter 897842176 [facility] 04/17/2023 Resolved Hordeolum externum left upper eyelid 988256986495753 [facility] 04/10/2024 Active ENCOUNTERS Encounter Diagnosis Code Code System Date Stat us Disruption of wound, unspeci fied, initial encounter 256517056 [facility] 04/17/2023 Active IMMUNIZATIONS * None VITAL SIGNS Code Code System Vitals Name Date Value and Un its 8462-4 [facility] Blood Pressure-Diastolic 04/17/2023 80 mmHg 8480-6 [facility] Blood Pressure-Systolic 04/17/2023 1 36 mmHg 8867-4 [facility] Heart Rate 04/17/2023 95 /min 9279-1 [facility] Respiratory Rate 04/17/2023 18 /min 8310-5 [facility] Body Temperature 04/17/2023 97.1 F 89584-1 [facility] Oxygen Saturation 04/17/2023 99 % SOCIAL [...]
--- OUTSIDE RECORDS SUMMARY | 2024-06-18 09:40 | XMS_ITS ---
Author Organization [facility], Address [address] [place] [address] Care Team Providers Care Child Support Specialist Name Role Phone Cristel Jin Unavailable [phone] ALLERGIES, ADVERSE REACTIONS, ALERTS Substance Code Code System Type Reaction Severity Status Start Date End Date Penicillins RxNorm Drug allergy () 0 Penicillins Unknown Drug allergy () 1 Cymbalta 888660 RxNorm Drug allergy () 0 MEDICATIONS Medication Code Code System Start Date Stop Date Route Dosage Directions Fill Instructions valacyclovir 0 RxNorm oral cyclobenzaprine 0 RxNorm oral Zithromax Z-Eric 703553 RxNorm 022 06/26 oral 2 omeprazole 0 RxNorm oral benzonatate 732960 RxNorm 022 07/01 oral 1 erythromycin 731573 RxNorm 04/10/20 24 ophthalmic (eye) 0.5 Bactrim DS 702839 RxNorm 023 oral 1 PROBLEMS Problem Name Code Code System Start Date End Date Stat Unspecified abdominal pain (R10.9) 79910873 [facility] 06/10/2022 Inactive Encounter for test, result negative (Z32.02) [facility] 06/14/2022 Inactive Lower abdominal pain, unspecified (R10.30) [facility] 06/14/2022 Inactiv e Bronchitis, acute (J20.9) 49415980 [facility] 06/21/2022 Inactive Cough, unspecified (R05.9) [facility] 06/23/2022 Inactive Contact with and (suspected) exposure to other viral communicable diseases (Z20.828) [facility] 06/23/2022 Inactive Gastro-esophageal reflux disease 520693516 [facility] Active Unspecified asthma, uncomplicated 604940106 [facility] 04/09/2023 Resolved Disruption of wound, unspecified, initial encounter 314154158 [facility] 04/17/2023 Resolved Hordeolum externum left upper eyelid 235270214160613 [facility] 04/10/2024 Active ENCOUNTERS Encounter Diagnosis Code Code System Date Stat us Encounter for removal of sutures 01872826 [facility] 04/06/2023 Active IMMUNIZATIONS * None VITAL SIGNS Code Code System Vitals Name Date Value and Un its 8462-4 [facility] Blood Pressure-Diastolic 04/06/2023 106 mmHg 8480-6 [facility] Blood Pressure-Systolic 04/06/2023 1 59 mmHg 8867-4 [facility] Heart Rate 04/06/2023 103 /min 9279-1 [facility] Respiratory Rate 04/06/2023 18 /min 8310-5 Loinc Body Temperature 04/06/2023 98.7 F 39017-9 [facility] Oxygen Saturation 04/06/2023 97 % SOCIAL HISTORY * None PROCEDURES Code Code System Procedure Date Status Notes 30589 Cpt4 Suture Removal 04/06/2023 completed Deo Gallardo [...]
--- OUTSIDE RECORDS SUMMARY | 2024-06-18 09:40 | XMS_ITS ---
Author Organization [facility], Address [address] [place] [address] Care Team Providers Care Pipeline Welder Name Role Phone Cristel Jin Unavailable [phone] ALLERGIES, ADVERSE REACTIONS, ALERTS Substance Code Code System Type Reaction Severity Status Start Date End Date Penicillins RxNorm Drug allergy () 0 Cymbalta 019366 RxNorm Drug allergy () 0 Penicillins Unknown Drug allergy () 1 MEDICATIONS Medication Code Code System Start Date Stop Date Route Dosage Directions Fill Instructions valacyclovir 0 RxNorm oral cyclobenzaprine 0 RxNorm oral Zithromax Z-Eric 541103 RxNorm 022 06/26 oral 2 omeprazole 0 RxNorm oral benzonatate 767503 RxNorm 022 07/01 oral 1 erythromycin 738597 RxNorm 04/10/20 24 ophthalmic (eye) 0.5 Bactrim DS 907676 RxNorm 023 oral 1 PROBLEMS Problem Name Code Code System Start Date End Date Stat Unspecified abdominal pain (R10.9) 71114599 [facility] 06/10/2022 Inactive Encounter for test, result negative (Z32.02) [facility] 06/14/2022 Inactive Lower abdominal pain, unspecified (R10.30) [facility] 06/14/2022 Inactiv e Bronchitis, acute (J20.9) 51431702 [facility] 06/21/2022 Inactive Cough, unspecified (R05.9) [facility] 06/23/2022 Inactive Contact with and (suspected) exposure to other viral communicable diseases (Z20.828) [facility] 06/23/2022 Inactive Gastro-esophageal reflux disease 200022509 [facility] Active Unspecified asthma, uncomplicated 759857326 [facility] 04/09/2023 Resolved Disruption of wound, unspecified, initial encounter 961428853 [facility] 04/17/2023 Resolved Hordeolum externum left upper eyelid 913007076034643 [facility] 04/10/2024 Active ENCOUNTERS Encounter Diagnosis Code Code System Date Stat us Contusion of right hand, incosmo tial encounter 12253758754584182 [facility] 03/14/2023 Active IMMUNIZATIONS * None VITAL SIGNS Code Code System Vitals Name Date Value and Un its 8462-4 [facility] Blood Pressure-Diastolic 03/14/2023 95 mmHg 8480-6 [facility] Blood Pressure-Systolic 03/14/2023 1 38 mmHg 8867-4 [facility] Heart Rate 03/14/2023 102 /min 9279-1 [facility] Respiratory Rate 03/14/2023 18 /min 8310-5 Lo[facility] Body Temperature 03/14/2023 98.4 F 70698-1 Loinc Oxygen Saturation 03/14/2023 98 % SOCIAL [...]
--- OUTSIDE RECORDS SUMMARY | 2024-06-18 09:40 | XMS_ITS ---
Author Organization [facility], Address [address] [place] [address] Care Team Providers Care Taxation Accountant Name Role Phone Laurie Tolliver Unavailable ALLERGIES, ADVERSE REACTIONS, ALERTS Substance Code Code System Type Reaction Severity Status Start Date End Date Penicillins Unknown Drug allergy () 1 Penicillins RxNorm Drug allergy () 0 Cymbalta 807214 RxNorm Drug allergy () 0 MEDICATIONS Medication Code Code System Start Date Stop Date Route Dosage Directions Fill Instructions valacyclovir 0 RxNorm oral cyclobenzaprine 0 RxNorm oral Zithromax Z-Eric 476110 RxNorm 022 06/26 oral 2 omeprazole 0 RxNorm oral benzonatate 934622 RxNorm 022 07/01 oral 1 erythromycin 650306 RxNorm 04/10/20 24 ophthalmic (eye) 0.5 Bactrim DS 398879 RxNorm 023 oral 1 PROBLEMS Problem Name Code Code System Start Date End Date Stat Unspecified abdominal pain (R10.9) 86717167 [facility] 06/10/2022 Inactive Encounter for test, result negative (Z32.02) [facility] 06/14/2022 Inactive Lower abdominal pain, unspecified (R10.30) [facility] 06/14/2022 Inactiv e Bronchitis, acute (J20.9) 96447177 [facility] 06/21/2022 Inactive Cough, unspecified (R05.9) [facility] 06/23/2022 Inactive Contact with and (suspected) exposure to other viral communicable diseases (Z20.828) [facility] 06/23/2022 Inactive Gastro-esophageal reflux disease 842722112 [facility] Active Unspecified asthma, uncomplicated 761816634 [facility] 04/09/2023 Resolved Disruption of wound, unspecified, initial encounter 376329017 [facility] 04/17/2023 Resolved Hordeolum externum left upper eyelid 892699422411479 [facility] 04/10/2024 Active ENCOUNTERS Encounter Diagnosis Code Code System Date Stat us Hordeolum externum left upper eyelid 460909715794578 [facility] 04/10/2024 Active IMMUNIZATIONS * None VITAL SIGNS Code Code System Vitals Name Date Value and Un its 8462-4 [facility] Blood Pressure-Diastolic 04/10/2024 84 mmHg 8480-6 [facility] Blood Pressure-Systolic 04/10/2024 1 12 mmHg 8867-4 [facility] Heart Rate 04/10/2024 94 /min 9279-1 [facility] Respiratory Rate 04/10/2024 18 /min 8310-5 Loinc Body Temperature 04/10/2024 98.8 F 27544-7 inc Oxygen Saturation 04/10/2024 97 % SOCIAL [...]
--- OUTSIDE RECORDS SUMMARY | 2024-06-18 09:41 | XMS_ITS ---
Author Organization [facility], Address [address] [place] [address] Care Team Providers Care Cook Chili Name Role Phone Bernadette Ma Unavailable [phone] ALLERGIES, ADVERSE REACTIONS, ALERTS Substance Code Code System Type Reaction Severity Status Start Date End Date Penicillins RxNorm Drug allergy () 0 Cymbalta 860653 RxNorm Drug allergy () 0 Penicillins Unknown Drug allergy () 1 MEDICATIONS Medication Code Code System Start Date Stop Date Route Dosage Directions Fill Instructions valacyclovir 0 RxNorm oral cyclobenzaprine 0 RxNorm oral Zithromax Z-Eric 114648 RxNorm 022 06/26 oral 2 omeprazole 0 RxNorm oral benzonatate 323007 RxNorm 022 07/01 oral 1 erythromycin 593625 RxNorm 04/10/20 24 ophthalmic (eye) 0.5 Bactrim DS 540872 RxNorm 023 oral 1 PROBLEMS Problem Name Code Code System Start Date End Date Stat us Unspecified abdominal pain (R10.9) 62034756 [facility] 06/10/2022 Inactive Encounter for test, result negative (Z32.02) [facility] 06/14/2022 Inactive Lower abdominal pain, unspecified (R10.30) [facility] 06/14/2022 Inactiv e Bronchitis, acute (J20.9) 69706314 [facility] 06/21/2022 Inactive Cough, unspecified (R05.9) [facility] 06/23/2022 Inactive Contact with and (suspected) exposure to other viral communicable diseases (Z20.828) [facility] 06/23/2022 Inactive Gastro-esophageal reflux disease 660263344 [facility] Active Unspecified asthma, uncomplicated 381456146 [facility] 04/09/2023 Resolved Disruption of wound, unspecified, initial encounter 545076430 [facility] 04/17/2023 Resolved Hordeolum externum left upper eyelid 726175705928150 [facility] 04/10/2024 Active ENCOUNTERS Encounter Diagnosis Code Code System Date Stat us Pneumonia, unspecified organism 063100636 [facility] 04/09 Active Unspecified asthma, uncomplicated 722697986 [facility] Active IMMUNIZATIONS * None VITAL SIGNS Code Code System Vitals Name Date Value and Un its 8462-4 [facility] Blood Pressure-Diastolic 04/09/2023 96 mmHg 8480-6 [facility] Blood Pressure-Systolic 04/09/2023 1 36 mmHg 8867-4 [facility] Heart Rate 04/09/2023 101 /min 9279-1 [facility] Respiratory Rate 04/09/2023 18 /min 8310-5 [facility] Body Temperature 04/09/2023 98.3 F 94762-9 [facility] Oxygen Saturation 04/09/2023 96 % SOCIAL [...] Assay, Amplified Probe Molecular RT-PCR / NAAT 36756 CPT 04/09/2023 Strep A, DNA, Amplified Probe PCR 05581 CPT 04/09/2023 GOALS * None HEALTH CONCERNS * No Health Concerns FUNCTIONAL AND COGNITIVE STATUS * None CONSULTATION NOTES * None DISCHARGE SUMMARY NOTES * None HISTORY AND PHYSICAL NOTES * Reason for visit - Illness IMAGING NOTES * None LABORATORY REPORT NARRATIVE NOTES * None PATHOLOGY REPORT NARRATIVE NOTES * None PROGRESS NOTES * None
--- OUTSIDE RECORDS SUMMARY | 2024-06-18 09:41 | XMS_ITS ---
Author Organization [facility], Address [address] [place] [address] Care Team Providers Care Document Imaging Manager Name Role Phone Deo Gallardo [phone] ALLERGIES, ADVERSE REACTIONS, ALERTS Substance Code Code System Type Reaction Severity Status Start Date End Date Penicillins Unknown Drug allergy () 1 Penicillins RxNorm Drug allergy () 0 Cymbalta 711895 RxNorm Drug allergy () 0 MEDICATIONS Medication Code Code System Start Date Stop Date Route Dosage Directions Fill Instructions valacyclovir 0 RxNorm oral cyclobenzaprine 0 RxNorm oral Zithromax Z-Eric 758727 RxNorm 022 06/26 oral 2 omeprazole 0 RxNorm oral benzonatate 947306 RxNorm 022 07/01 oral 1 erythromycin 031896 RxNorm 04/10/20 24 ophthalmic (eye) 0.5 Bactrim DS 335925 RxNorm 023 oral 1 PROBLEMS Problem Name Code Code System Start Date End Date Stat Unspecified abdominal pain (R10.9) 94873346 [facility] 06/10/2022 Inactive Encounter for test, result negative (Z32.02) [facility] 06/14/2022 Inactive Lower abdominal pain, unspecified (R10.30) [facility] 06/14/2022 Inactiv e Bronchitis, acute (J20.9) 95916843 [facility] 06/21/2022 Inactive Cough, unspecified (R05.9) [facility] 06/23/2022 Inactive Contact with and (suspected) exposure to other viral communicable diseases (Z20.828) [facility] 06/23/2022 Inactive Gastro-esophageal reflux disease 094732284 [facility] Active Unspecified asthma, uncomplicated 655539344 [facility] 04/09/2023 Resolved Disruption of wound, unspecified, initial encounter 263409774 [facility] 04/17/2023 Resolved Hordeolum externum left upper eyelid 260738680899401 [facility] 04/10/2024 Active ENCOUNTERS Encounter Diagnosis Code Code System Date Stat us Disruption of wound, unspeci fied, initial encounter 561644047 [facility] 04/17/2023 Active IMMUNIZATIONS * None VITAL SIGNS Code Code System Vitals Name Date Value and Un its 8462-4 [facility] Blood Pressure-Diastolic 04/17/2023 80 mmHg 8480-6 [facility] Blood Pressure-Systolic 04/17/2023 1 36 mmHg 8867-4 [facility] Heart Rate 04/17/2023 95 /min 9279-1 [facility] Respiratory Rate 04/17/2023 18 /min 8310-5 [facility] Body Temperature 04/17/2023 97.1 F 76033-0 [facility] Oxygen Saturation 04/17/2023 99 % SOCIAL [...]
[2024-06-18 09:49] VITALS: BP 140/77; PULSE 100; O2SAT 98; BMI 31.4
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
== END 2024-06-18 09:54 | disposition home or self-care (01) ==
PROVIDERS: PCP Internal Medicine; Visit Provider Anesthesiology
DX: M47.816 Spondylosis without myelopathy or radiculopathy, lumbar region (principal); S73.191A Other sprain of right hip, initial encounter; M25.561 Pain in right knee
CPT/HCPCS: 99024

== ENCOUNTER → 2024-06-18 09:36 | Outpatient (BNVA) | payer OTHER, SELFPAY | PROVIDERS: PCP Internal Medicine; Visit Provider Anesthesiology | DX: M47.816 Spondylosis without myelopathy or radiculopathy, lumbar region (principal); M25.561 Pain in right knee; S73.191A Other sprain of right hip, initial encounter; X58.XXXA Exposure to other specified factors, initial encounter; Y93.9 Activity, unspecified; Y92.9 Unspecified place or not applicable; Y99.9 Unspecified external cause status | CPT/HCPCS: 99212 ==

== ENCOUNTER → 2024-06-25 14:14 | Outpatient (BNVA) | payer OTHER, SELFPAY | PROVIDERS: PCP Internal Medicine; Visit Provider Anesthesiology ==

== ENCOUNTER → 2024-07-03 10:30 | Outpatient (BNVA) | payer OTHER, SELFPAY | PROVIDERS: PCP Internal Medicine; Visit Provider Anesthesiology ==

== ENCOUNTER 2024-07-10 06:18 | Outpatient (REF) | payer OTHER, SELFPAY ==
--- NOTE | ~2024-07-10 | FL_ITS ---
EXAMINATION: FLUOROSCOPY GUIDANCE FOR NEEDLE PLACEMENT CLINICAL INFORMATION: M47.816 - Spondylosis without myelopathy or radiculopathy, lumbar region COMPARISON: None available. TECHNIQUE: Intraoperative fluoroscopy guidance for a lumbar spine procedure. Patient positioning prominent. 2. Static images provided. Physician present.. FINDINGS: Intraoperative fluoroscopy guidance for a lumbar spine procedure demonstrated the metallic instrument. FLUOROSCOPY TIME: 0.1 minutes. DOSE AREA PRODUCT: 2.33 uGy-m2 (microgray-meter squared) FL/FL guidance in treatment room IMPRESSION: Intraoperative fluoroscopic guidance for lumbar spine procedure. Electronically signed by: Abdiel Metz MD 07/18/2024 03:00 PM SANKET
--- OUTSIDE RECORDS SUMMARY | 2024-07-10 06:20 | XMS_ITS ---
Author Organization [facility], Address [address] [place] [address] Care Team Providers Care Brand Coordinator Name Role Phone Laurie Tolliver Unavailable ALLERGIES, ADVERSE REACTIONS, ALERTS Substance Code Code System Type Reaction Severity Status Start Date End Date Penicillins RxNorm Drug allergy () 0 Cymbalta 622306 RxNorm Drug allergy () 0 Penicillins Unknown Drug allergy () 1 MEDICATIONS Medication Code Code System Start Date Stop Date Route Dosage Directions Fill Instructions valacyclovir 0 RxNorm oral cyclobenzaprine 0 RxNorm oral Zithromax Z-Eric 153180 RxNorm 022 06/26 oral 2 omeprazole 0 RxNorm oral benzonatate 185270 RxNorm 022 07/01 oral 1 erythromycin 683232 RxNorm 04/10/20 24 ophthalmic (eye) 0.5 Bactrim DS 881082 RxNorm 023 oral 1 PROBLEMS Problem Name Code Code System Start Date End Date Stat Unspecified abdominal pain (R10.9) 49788859 [facility] 06/10/2022 Inactive Encounter for test, result negative (Z32.02) [facility] 06/14/2022 Inactive Lower abdominal pain, unspecified (R10.30) [facility] 06/14/2022 Inactiv e Bronchitis, acute (J20.9) 60935681 [facility] 06/21/2022 Inactive Cough, unspecified (R05.9) [facility] 06/23/2022 Inactive Contact with and (suspected) exposure to other viral communicable diseases (Z20.828) [facility] 06/23/2022 Inactive Gastro-esophageal reflux disease 217800868 [facility] Active Unspecified asthma, uncomplicated 262160825 [facility] 04/09/2023 Resolved Disruption of wound, unspecified, initial encounter 455574212 [facility] 04/17/2023 Resolved Hordeolum externum left upper eyelid 773331751919024 [facility] 04/10/2024 Active ENCOUNTERS Encounter Diagnosis Code Code System Date Stat us Hordeolum externum left upper eyelid 859055987068041 [facility] 04/10/2024 Active IMMUNIZATIONS * None VITAL SIGNS Code Code System Vitals Name Date Value and Un its 8462-4 [facility] Blood Pressure-Diastolic 04/10/2024 84 mmHg 8480-6 [facility] Blood Pressure-Systolic 04/10/2024 1 12 mmHg 8867-4 [facility] Heart Rate 04/10/2024 94 /min 9279-1 [facility] Respiratory Rate 04/10/2024 18 /min 8310-5 [facility] Body Temperature 04/10/2024 98.8 F 85378-9 inc Oxygen Saturation 04/10/2024 97 % SOCIAL [...]
--- OUTSIDE RECORDS SUMMARY | 2024-07-10 06:20 | XMS_ITS ---
Author Organization [facility], Address [address] [place] [address] Care Team Providers Care Hair Dryer Name Role Phone Bernadette Ma Unavailable [phone] ALLERGIES, ADVERSE REACTIONS, ALERTS Substance Code Code System Type Reaction Severity Status Start Date End Date Penicillins RxNorm Drug allergy () 0 Penicillins Unknown Drug allergy () 1 Cymbalta 033320 RxNorm Drug allergy () 0 MEDICATIONS Medication Code Code System Start Date Stop Date Route Dosage Directions Fill Instructions valacyclovir 0 RxNorm oral cyclobenzaprine 0 RxNorm oral Zithromax Z-Eric 470431 RxNorm 022 06/26 oral 2 omeprazole 0 RxNorm oral benzonatate 664923 RxNorm 022 07/01 oral 1 erythromycin 911602 RxNorm 04/10/20 24 ophthalmic (eye) 0.5 Bactrim DS 560216 RxNorm 023 oral 1 PROBLEMS Problem Name Code Code System Start Date End Date Stat us Unspecified abdominal pain (R10.9) 59265102 [facility] 06/10/2022 Inactive Encounter for test, result negative (Z32.02) [facility] 06/14/2022 Inactive Lower abdominal pain, unspecified (R10.30) [facility] 06/14/2022 Inactiv e Bronchitis, acute (J20.9) 25614982 [facility] 06/21/2022 Inactive Cough, unspecified (R05.9) [facility] 06/23/2022 Inactive Contact with and (suspected) exposure to other viral communicable diseases (Z20.828) [facility] 06/23/2022 Inactive Gastro-esophageal reflux disease 222845206 [facility] Active Unspecified asthma, uncomplicated 371742460 [facility] 04/09/2023 Resolved Disruption of wound, unspecified, initial encounter 280278623 [facility] 04/17/2023 Resolved Hordeolum externum left upper eyelid 363125178518595 [facility] 04/10/2024 Active ENCOUNTERS Encounter Diagnosis Code Code System Date Stat us Pneumonia, unspecified organism 023659050 [facility] 04/09 Active Unspecified asthma, uncomplicated 005086224 [facility] Active IMMUNIZATIONS * None VITAL SIGNS Code Code System Vitals Name Date Value and Un its 8462-4 [facility] Blood Pressure-Diastolic 04/09/2023 96 mmHg 8480-6 [facility] Blood Pressure-Systolic 04/09/2023 1 36 mmHg 8867-4 [facility] Heart Rate 04/09/2023 101 /min 9279-1 [facility] Respiratory Rate 04/09/2023 18 /min 8310-5 [facility] Body Temperature 04/09/2023 98.3 F 38389-5 [facility] Oxygen Saturation 04/09/2023 96 % SOCIAL [...] Assay, Amplified Probe Molecular RT-PCR / NAAT 20654 CPT 04/09/2023 Strep A, DNA, Amplified Probe PCR 94641 CPT 04/09/2023 GOALS * None HEALTH CONCERNS * No Health Concerns FUNCTIONAL AND COGNITIVE STATUS * None CONSULTATION NOTES * None DISCHARGE SUMMARY NOTES * None HISTORY AND PHYSICAL NOTES * Reason for visit - Illness IMAGING NOTES * None LABORATORY REPORT NARRATIVE NOTES * None PATHOLOGY REPORT NARRATIVE NOTES * None PROGRESS NOTES * None
--- OUTSIDE RECORDS SUMMARY | 2024-07-10 06:20 | XMS_ITS ---
Author Organization [facility], Address [address] [place] [address] Care Team Providers Care Exchange Specialist Name Role Phone Cristel Jin Unavailable [phone] ALLERGIES, ADVERSE REACTIONS, ALERTS Substance Code Code System Type Reaction Severity Status Start Date End Date Penicillins RxNorm Drug allergy () 0 Penicillins Unknown Drug allergy () 1 Cymbalta 077295 RxNorm Drug allergy () 0 MEDICATIONS Medication Code Code System Start Date Stop Date Route Dosage Directions Fill Instructions valacyclovir 0 RxNorm oral cyclobenzaprine 0 RxNorm oral Zithromax Z-Eric 889448 RxNorm 022 06/26 oral 2 omeprazole 0 RxNorm oral benzonatate 520803 RxNorm 022 07/01 oral 1 erythromycin 357673 RxNorm 04/10/20 24 ophthalmic (eye) 0.5 Bactrim DS 629785 RxNorm 023 oral 1 PROBLEMS Problem Name Code Code System Start Date End Date Stat Unspecified abdominal pain (R10.9) 19080191 [facility] 06/10/2022 Inactive Encounter for test, result negative (Z32.02) [facility] 06/14/2022 Inactive Lower abdominal pain, unspecified (R10.30) [facility] 06/14/2022 Inactiv e Bronchitis, acute (J20.9) 34503744 [facility] 06/21/2022 Inactive Cough, unspecified (R05.9) [facility] 06/23/2022 Inactive Contact with and (suspected) exposure to other viral communicable diseases (Z20.828) [facility] 06/23/2022 Inactive Gastro-esophageal reflux disease 917000179 [facility] Active Unspecified asthma, uncomplicated 318171601 [facility] 04/09/2023 Resolved Disruption of wound, unspecified, initial encounter 098751720 [facility] 04/17/2023 Resolved Hordeolum externum left upper eyelid 093344486497288 [facility] 04/10/2024 Active ENCOUNTERS Encounter Diagnosis Code Code System Date Stat us Contusion of right hand, incosmo tial encounter 53095844794580753 [facility] 03/14/2023 Active IMMUNIZATIONS * None VITAL SIGNS Code Code System Vitals Name Date Value and Un its 8462-4 [facility] Blood Pressure-Diastolic 03/14/2023 95 mmHg 8480-6 [facility] Blood Pressure-Systolic 03/14/2023 1 38 mmHg 8867-4 [facility] Heart Rate 03/14/2023 102 /min 9279-1 [facility] Respiratory Rate 03/14/2023 18 /min 8310-5 [facility] Body Temperature 03/14/2023 98.4 F 86807-1 [facility] Oxygen Saturation 03/14/2023 98 % SOCIAL [...]
--- OUTSIDE RECORDS SUMMARY | 2024-07-10 06:20 | XMS_ITS ---
Author Organization [facility], Address [address] [place] [address] Care Team Providers Care Resaw Tailer Name Role Phone Deo Gallardo [phone] ALLERGIES, ADVERSE REACTIONS, ALERTS Substance Code Code System Type Reaction Severity Status Start Date End Date Penicillins RxNorm Drug allergy () 0 Penicillins Unknown Drug allergy () 1 Cymbalta 744276 RxNorm Drug allergy () 0 MEDICATIONS Medication Code Code System Start Date Stop Date Route Dosage Directions Fill Instructions valacyclovir 0 RxNorm oral cyclobenzaprine 0 RxNorm oral Zithromax Z-Eric 544679 RxNorm 022 06/26 oral 2 omeprazole 0 RxNorm oral benzonatate 630233 RxNorm 022 07/01 oral 1 erythromycin 753538 RxNorm 04/10/20 24 ophthalmic (eye) 0.5 Bactrim DS 603386 RxNorm 023 oral 1 PROBLEMS Problem Name Code Code System Start Date End Date Stat Unspecified abdominal pain (R10.9) 47691649 [facility] 06/10/2022 Inactive Encounter for test, result negative (Z32.02) [facility] 06/14/2022 Inactive Lower abdominal pain, unspecified (R10.30) [facility] 06/14/2022 Inactiv e Bronchitis, acute (J20.9) 13316618 [facility] 06/21/2022 Inactive Cough, unspecified (R05.9) [facility] 06/23/2022 Inactive Contact with and (suspected) exposure to other viral communicable diseases (Z20.828) [facility] 06/23/2022 Inactive Gastro-esophageal reflux disease 001646070 [facility] Active Unspecified asthma, uncomplicated 395274286 [facility] 04/09/2023 Resolved Disruption of wound, unspecified, initial encounter 474367479 [facility] 04/17/2023 Resolved Hordeolum externum left upper eyelid 318279278458788 [facility] 04/10/2024 Active ENCOUNTERS Encounter Diagnosis Code Code System Date Stat us Disruption of wound, unspeci fied, initial encounter 599893252 [facility] 04/17/2023 Active IMMUNIZATIONS * None VITAL SIGNS Code Code System Vitals Name Date Value and Un its 8462-4 [facility] Blood Pressure-Diastolic 04/17/2023 80 mmHg 8480-6 [facility] Blood Pressure-Systolic 04/17/2023 1 36 mmHg 8867-4 [facility] Heart Rate 04/17/2023 95 /min 9279-1 [facility] Respiratory Rate 04/17/2023 18 /min 8310-5 [facility] Body Temperature 04/17/2023 97.1 F 21545-3 [facility] Oxygen Saturation 04/17/2023 99 % SOCIAL [...]
--- OUTSIDE RECORDS SUMMARY | 2024-07-10 06:20 | XMS_ITS ---
Author Organization [facility], Address [address] [place] [address] Care Team Providers Care Load Dispatcher Name Role Phone Cristel Jin Unavailable [phone] ALLERGIES, ADVERSE REACTIONS, ALERTS Substance Code Code System Type Reaction Severity Status Start Date End Date Penicillins RxNorm Drug allergy () 0 Penicillins Unknown Drug allergy () 1 Cymbalta 452660 RxNorm Drug allergy () 0 MEDICATIONS Medication Code Code System Start Date Stop Date Route Dosage Directions Fill Instructions valacyclovir 0 RxNorm oral cyclobenzaprine 0 RxNorm oral Zithromax Z-Eric 030850 RxNorm 022 06/26 oral 2 omeprazole 0 RxNorm oral benzonatate 791197 RxNorm 022 07/01 oral 1 erythromycin 773595 RxNorm 04/10/20 24 ophthalmic (eye) 0.5 Bactrim DS 659276 RxNorm 023 oral 1 PROBLEMS Problem Name Code Code System Start Date End Date Stat Unspecified abdominal pain (R10.9) 07002118 [facility] 06/10/2022 Inactive Encounter for test, result negative (Z32.02) [facility] 06/14/2022 Inactive Lower abdominal pain, unspecified (R10.30) [facility] 06/14/2022 Inactiv e Bronchitis, acute (J20.9) 21472514 [facility] 06/21/2022 Inactive Cough, unspecified (R05.9) [facility] 06/23/2022 Inactive Contact with and (suspected) exposure to other viral communicable diseases (Z20.828) [facility] 06/23/2022 Inactive Gastro-esophageal reflux disease 984947985 [facility] Active Unspecified asthma, uncomplicated 613377977 [facility] 04/09/2023 Resolved Disruption of wound, unspecified, initial encounter 629077101 [facility] 04/17/2023 Resolved Hordeolum externum left upper eyelid 013732329805972 [facility] 04/10/2024 Active ENCOUNTERS Encounter Diagnosis Code Code System Date Stat us Encounter for removal of sutures 20721242 [facility] 04/06/2023 Active IMMUNIZATIONS * None VITAL SIGNS Code Code System Vitals Name Date Value and Un its 8462-4 [facility] Blood Pressure-Diastolic 04/06/2023 106 mmHg 8480-6 [facility] Blood Pressure-Systolic 04/06/2023 1 59 mmHg 8867-4 [facility] Heart Rate 04/06/2023 103 /min 9279-1 [facility] Respiratory Rate 04/06/2023 18 /min 8310-5 [facility] Body Temperature 04/06/2023 98.7 F 99915-5 [facility] Oxygen Saturation 04/06/2023 97 % SOCIAL HISTORY * None PROCEDURES Code Code System Procedure Date Status Notes 50040 Cpt4 Suture Removal 04/06/2023 completed Deo Gallardo [...]
--- OUTSIDE RECORDS SUMMARY | 2024-07-10 06:21 | XMS_ITS ---
Author Organization [facility], Address [address] [place] [address] Care Team Providers Care Licensed Embalmer Supervisor Name Role Phone Bernadette Ma Unavailable [phone] ALLERGIES, ADVERSE REACTIONS, ALERTS Substance Code Code System Type Reaction Severity Status Start Date End Date Cymbalta 371494 RxNorm Drug allergy () 0 Penicillins RxNorm Drug allergy () 0 Penicillins Unknown Drug allergy () 1 MEDICATIONS Medication Code Code System Start Date Stop Date Route Dosage Directions Fill Instructions valacyclovir 0 RxNorm oral cyclobenzaprine 0 RxNorm oral Zithromax Z-Eric 388545 RxNorm 022 06/26 oral 2 omeprazole 0 RxNorm oral benzonatate 020071 RxNorm 022 07/01 oral 1 erythromycin 748178 RxNorm 04/10/20 24 ophthalmic (eye) 0.5 Bactrim DS 749744 RxNorm 023 oral 1 PROBLEMS Problem Name Code Code System Start Date End Date Stat Unspecified abdominal pain (R10.9) 09805545 [facility] 06/10/2022 Inactive Encounter for test, result negative (Z32.02) [facility] 06/14/2022 Inactive Lower abdominal pain, unspecified (R10.30) [facility] 06/14/2022 Inactiv e Bronchitis, acute (J20.9) 07927140 [facility] 06/21/2022 Inactive Cough, unspecified (R05.9) [facility] 06/23/2022 Inactive Contact with and (suspected) exposure to other viral communicable diseases (Z20.828) [facility] 06/23/2022 Inactive Gastro-esophageal reflux disease 062739536 [facility] Active Unspecified asthma, uncomplicated 562324724 [facility] 04/09/2023 Resolved Disruption of wound, unspecified, initial encounter 762488780 [facility] 04/17/2023 Resolved Hordeolum externum left upper eyelid 300235632579624 [facility] 04/10/2024 Active ENCOUNTERS Encounter Diagnosis Code Code System Date Stat us Pneumonia, unspecified organism 688582545 [facility] 04/09 Active Unspecified asthma, uncomplicated 855799031 [facility] Active IMMUNIZATIONS * None VITAL SIGNS Code Code System Vitals Name Date Value and Un its 8462-4 [facility] Blood Pressure-Diastolic 04/09/2023 96 mmHg 8480-6 [facility] Blood Pressure-Systolic 04/09/2023 1 36 mmHg 8867-4 [facility] Heart Rate 04/09/2023 101 /min 9279-1 [facility] Respiratory Rate 04/09/2023 18 /min 8310-5 [facility] Body Temperature 04/09/2023 98.3 F 32555-3 [facility] Oxygen Saturation 04/09/2023 96 % SOCIAL [...] Assay, Amplified Probe Molecular RT-PCR / NAAT 30891 CPT 04/09/2023 Strep A, DNA, Amplified Probe PCR 58609 CPT 04/09/2023 GOALS * None HEALTH CONCERNS * No Health Concerns FUNCTIONAL AND COGNITIVE STATUS * None CONSULTATION NOTES * None DISCHARGE SUMMARY NOTES * None HISTORY AND PHYSICAL NOTES * Reason for visit - Illness IMAGING NOTES * None LABORATORY REPORT NARRATIVE NOTES * None PATHOLOGY REPORT NARRATIVE NOTES * None PROGRESS NOTES * None
--- OUTSIDE RECORDS SUMMARY | 2024-07-10 06:21 | XMS_ITS ---
Author Organization [facility], Address [address] [place] [address] Care Team Providers Care Bowling Ball Engraver Name Role Phone Cristel Jin Unavailable [phone] ALLERGIES, ADVERSE REACTIONS, ALERTS Substance Code Code System Type Reaction Severity Status Start Date End Date Penicillins RxNorm Drug allergy () 0 Cymbalta 162764 RxNorm Drug allergy () 0 Penicillins Unknown Drug allergy () 1 MEDICATIONS Medication Code Code System Start Date Stop Date Route Dosage Directions Fill Instructions valacyclovir 0 RxNorm oral cyclobenzaprine 0 RxNorm oral Zithromax Z-Eric 273978 RxNorm 022 06/26 oral 2 omeprazole 0 RxNorm oral benzonatate 231091 RxNorm 022 07/01 oral 1 erythromycin 463055 RxNorm 04/10/20 24 ophthalmic (eye) 0.5 Bactrim DS 448193 RxNorm 023 oral 1 PROBLEMS Problem Name Code Code System Start Date End Date Stat Unspecified abdominal pain (R10.9) 13740589 [facility] 06/10/2022 Inactive Encounter for test, result negative (Z32.02) [facility] 06/14/2022 Inactive Lower abdominal pain, unspecified (R10.30) [facility] 06/14/2022 Inactiv e Bronchitis, acute (J20.9) 22983970 [facility] 06/21/2022 Inactive Cough, unspecified (R05.9) [facility] 06/23/2022 Inactive Contact with and (suspected) exposure to other viral communicable diseases (Z20.828) [facility] 06/23/2022 Inactive Gastro-esophageal reflux disease 342126537 [facility] Active Unspecified asthma, uncomplicated 418700421 [facility] 04/09/2023 Resolved Disruption of wound, unspecified, initial encounter 945105856 [facility] 04/17/2023 Resolved Hordeolum externum left upper eyelid 256959551067376 [facility] 04/10/2024 Active ENCOUNTERS Encounter Diagnosis Code Code System Date Stat us Contusion of right hand, incosmo tial encounter 26916201264356251 [facility] 03/14/2023 Active IMMUNIZATIONS * None VITAL SIGNS Code Code System Vitals Name Date Value and Un its 8462-4 [facility] Blood Pressure-Diastolic 03/14/2023 95 mmHg 8480-6 [facility] Blood Pressure-Systolic 03/14/2023 1 38 mmHg 8867-4 [facility] Heart Rate 03/14/2023 102 /min 9279-1 [facility] Respiratory Rate 03/14/2023 18 /min 8310-5 [facility] Body Temperature 03/14/2023 98.4 F 38541-6 [facility] Oxygen Saturation 03/14/2023 98 % SOCIAL [...]
--- OUTSIDE RECORDS SUMMARY | 2024-07-10 06:21 | XMS_ITS ---
Author Organization [facility], Address [address] [place] [address] Care Team Providers Care Shellfish Farming Supervisor Name Role Phone Cristel Jin Unavailable [phone] ALLERGIES, ADVERSE REACTIONS, ALERTS Substance Code Code System Type Reaction Severity Status Start Date End Date Penicillins RxNorm Drug allergy () 0 Cymbalta 080428 RxNorm Drug allergy () 0 Penicillins Unknown Drug allergy () 1 MEDICATIONS Medication Code Code System Start Date Stop Date Route Dosage Directions Fill Instructions valacyclovir 0 RxNorm oral cyclobenzaprine 0 RxNorm oral Zithromax Z-Eric 836759 RxNorm 022 06/26 oral 2 omeprazole 0 RxNorm oral benzonatate 658049 RxNorm 022 07/01 oral 1 erythromycin 962011 RxNorm 04/10/20 24 ophthalmic (eye) 0.5 Bactrim DS 556173 RxNorm 023 oral 1 PROBLEMS Problem Name Code Code System Start Date End Date Stat Unspecified abdominal pain (R10.9) 90175109 [facility] 06/10/2022 Inactive Encounter for test, result negative (Z32.02) [facility] 06/14/2022 Inactive Lower abdominal pain, unspecified (R10.30) [facility] 06/14/2022 Inactiv e Bronchitis, acute (J20.9) 42860544 [facility] 06/21/2022 Inactive Cough, unspecified (R05.9) [facility] 06/23/2022 Inactive Contact with and (suspected) exposure to other viral communicable diseases (Z20.828) [facility] 06/23/2022 Inactive Gastro-esophageal reflux disease 328972155 [facility] Active Unspecified asthma, uncomplicated 480471994 [facility] 04/09/2023 Resolved Disruption of wound, unspecified, initial encounter 555539488 [facility] 04/17/2023 Resolved Hordeolum externum left upper eyelid 844079525508618 [facility] 04/10/2024 Active ENCOUNTERS Encounter Diagnosis Code Code System Date Stat us Encounter for removal of sutures 55703055 [facility] 04/06/2023 Active IMMUNIZATIONS * None VITAL SIGNS Code Code System Vitals Name Date Value and Un its 8462-4 [facility] Blood Pressure-Diastolic 04/06/2023 106 mmHg 8480-6 [facility] Blood Pressure-Systolic 04/06/2023 1 59 mmHg 8867-4 [facility] Heart Rate 04/06/2023 103 /min 9279-1 [facility] Respiratory Rate 04/06/2023 18 /min 8310-5 [facility] Body Temperature 04/06/2023 98.7 F 23324-3 [facility] Oxygen Saturation 04/06/2023 97 % SOCIAL HISTORY * None PROCEDURES Code Code System Procedure Date Status Notes 38212 Cpt4 Suture Removal 04/06/2023 completed Deo Gallardo [...]
--- OUTSIDE RECORDS SUMMARY | 2024-07-10 06:21 | XMS_ITS ---
Author Organization [facility], Address [address] [place] [address] Care Team Providers Care Rn Faculty Name Role Phone aLurie Tolliver Unavailable ALLERGIES, ADVERSE REACTIONS, ALERTS Substance Code Code System Type Reaction Severity Status Start Date End Date Penicillins RxNorm Drug allergy () 0 Cymbalta 714709 RxNorm Drug allergy () 0 Penicillins Unknown Drug allergy () 1 MEDICATIONS Medication Code Code System Start Date Stop Date Route Dosage Directions Fill Instructions valacyclovir 0 RxNorm oral cyclobenzaprine 0 RxNorm oral Zithromax Z-Eric 971606 RxNorm 022 06/26 oral 2 omeprazole 0 RxNorm oral benzonatate 409955 RxNorm 022 07/01 oral 1 erythromycin 035368 RxNorm 04/10/20 24 ophthalmic (eye) 0.5 Bactrim DS 697190 RxNorm 023 oral 1 PROBLEMS Problem Name Code Code System Start Date End Date Stat Unspecified abdominal pain (R10.9) 33154679 [facility] 06/10/2022 Inactive Encounter for test, result negative (Z32.02) [facility] 06/14/2022 Inactive Lower abdominal pain, unspecified (R10.30) [facility] 06/14/2022 Inactiv e Bronchitis, acute (J20.9) 89880663 [facility] 06/21/2022 Inactive Cough, unspecified (R05.9) [facility] 06/23/2022 Inactive Contact with and (suspected) exposure to other viral communicable diseases (Z20.828) [facility] 06/23/2022 Inactive Gastro-esophageal reflux disease 303385887 [facility] Active Unspecified asthma, uncomplicated 696094611 [facility] 04/09/2023 Resolved Disruption of wound, unspecified, initial encounter 304411328 [facility] 04/17/2023 Resolved Hordeolum externum left upper eyelid 414572505481873 [facility] 04/10/2024 Active ENCOUNTERS Encounter Diagnosis Code Code System Date Stat us Hordeolum externum left upper eyelid 416327229684527 [facility] 04/10/2024 Active IMMUNIZATIONS * None VITAL SIGNS Code Code System Vitals Name Date Value and Un its 8462-4 [facility] Blood Pressure-Diastolic 04/10/2024 84 mmHg 8480-6 [facility] Blood Pressure-Systolic 04/10/2024 1 12 mmHg 8867-4 [facility] Heart Rate 04/10/2024 94 /min 9279-1 [facility] Respiratory Rate 04/10/2024 18 /min 8310-5 [facility] Body Temperature 04/10/2024 98.8 F 71892-7 inc Oxygen Saturation 04/10/2024 97 % SOCIAL [...]
--- OUTSIDE RECORDS SUMMARY | 2024-07-10 06:21 | XMS_ITS ---
Author Organization [facility], Address [address] [place] [address] Care Team Providers Care Power Lineworker Name Role Phone Deo Gallardo [phone] ALLERGIES, ADVERSE REACTIONS, ALERTS Substance Code Code System Type Reaction Severity Status Start Date End Date Penicillins RxNorm Drug allergy () 0 Cymbalta 962478 RxNorm Drug allergy () 0 Penicillins Unknown Drug allergy () 1 MEDICATIONS Medication Code Code System Start Date Stop Date Route Dosage Directions Fill Instructions valacyclovir 0 RxNorm oral cyclobenzaprine 0 RxNorm oral Zithromax Z-Eric 872352 RxNorm 022 06/26 oral 2 omeprazole 0 RxNorm oral benzonatate 814593 RxNorm 022 07/01 oral 1 erythromycin 774190 RxNorm 04/10/20 24 ophthalmic (eye) 0.5 Bactrim DS 486978 RxNorm 023 oral 1 PROBLEMS Problem Name Code Code System Start Date End Date Stat us Unspecified abdominal pain (R10.9) 00881524 [facility] 06/10/2022 Inactive Encounter for test, result negative (Z32.02) [facility] 06/14/2022 Inactive Lower abdominal pain, unspecified (R10.30) [facility] 06/14/2022 Inactiv e Bronchitis, acute (J20.9) 32606326 [facility] 06/21/2022 Inactive Cough, unspecified (R05.9) [facility] 06/23/2022 Inactive Contact with and (suspected) exposure to other viral communicable diseases (Z20.828) [facility] 06/23/2022 Inactive Gastro-esophageal reflux disease 006465549 [facility] Active Unspecified asthma, uncomplicated 759983136 [facility] 04/09/2023 Resolved Disruption of wound, unspecified, initial encounter 922927275 [facility] 04/17/2023 Resolved Hordeolum externum left upper eyelid 950313046954146 [facility] 04/10/2024 Active ENCOUNTERS Encounter Diagnosis Code Code System Date Stat us Disruption of wound, unspeci fied, initial encounter 836427873 [facility] 04/17/2023 Active IMMUNIZATIONS * None VITAL SIGNS Code Code System Vitals Name Date Value and Un its 8462-4 [facility] Blood Pressure-Diastolic 04/17/2023 80 mmHg 8480-6 [facility] Blood Pressure-Systolic 04/17/2023 1 36 mmHg 8867-4 [facility] Heart Rate 04/17/2023 95 /min 9279-1 [facility] Respiratory Rate 04/17/2023 18 /min 8310-5 [facility] Body Temperature 04/17/2023 97.1 F 58770-5 [facility] Oxygen Saturation 04/17/2023 99 % SOCIAL [...]
== END 2024-07-10 06:19 | disposition home or self-care (01) ==
LOC: CF 06:18
PROVIDERS: Visit Provider Internal Medicine
DX: M47.816 Spondylosis without myelopathy or radiculopathy, lumbar region (principal); M54.6 Pain in thoracic spine
CPT/HCPCS: 64555; J2003

== ENCOUNTER 2024-07-10 09:01 | Outpatient (AMB) | payer OTHER, SELFPAY ==
[2024-07-10 09:08] VITALS: BP 119/81; PULSE 105; O2SAT 98
--- NOTE | 2024-07-10 09:08 | A.OFFVIS_ITS ---
Vital Signs 07/10/24 09:08 07/10/24 09:47 BP 119/81 110/78 Blood Pressure Location Lt brachial Rt brachial Position Sitting Sitting Pulse 105 H 89 Pulse Source Pulse Oximeter Pulse Oximeter Pulse Oximetry (%) 98 97 Oxygen Delivery Method Room Air Room Air Comment Pre Procedure Post procedure Intake Visit Reasons: LEFT L5 SPRINT PNS TRIAL/ATIVAN REQUESTED Allergies amoxicillin Allergy (Unknown, Verified 07/03/24 10:47) Unknown [facility] Social History (System 04/08/23 @ 14:22 by Kimmy Lantigua) Alcohol intake: current Patient Tobacco Use Status: Current everyday Tobacco user Physical Exam Vital Signs: Last Vital Signs Pulse 105 H 07/10/24 09:08 BP 119/81 07/10/24 09:08 Pulse Ox 98 07/10/24 09:08 Oxygen Delivery Method Room Air 07/10/24 09:08 Assessment & Plan Assessment & Plan (1) Intractable back pain: Code(s): M54.9 - Dorsalgia, unspecified Category: Medical (2) Lumbar spondylosis: Code(s): M47.816 - Spondylosis without myelopathy or radiculopathy, lumbar region Category: Medical Plan Percutaneous implantation of peripheral nerve stimulation Sprint system L5 left side. After the risks, benefits and alternatives were discussed with the patient and informed consent was obtained, patient was placed in the prone position and padded to foster comfort. Time out was performed delineating correct site and side of the procedure , name and of the patient, patient participated in time out procedure. C-arm was brought over the operating field and clear picture of the L5 lamina on the left was delineated on the screen. The upper central portion of the lamina was chosen as a target of the needle tip insertion . After identifying and marking the intended target, the skin around the planned entry point and the subcutaneous tissues were injected with local anesthetic forming skin wheal.. A percutaneous sleeve and stimulating probe lead introduction system were assembled, inserted and advanced through the skin wheal to the point of interest under C-arm view L5 left lamina., the introducer needle was delivered to a location in proximity to the nerve. Multiple stimulation parameters were used to deliver stimulation to the nerve in concert with stimulating at multiple positions around the nerve. The nerve target acquisition was confirmed noting generation of in the corresponding to the nerve being stimulated. Various electrical parameter combinations were tested, and the lead location was adjusted (physically relocated) until the patient indicated overlapping the distribution of the patient?s typical region of pain. The stimulating probe was removed from the introducer and a percutaneous lead was guided through the needle and delivered to a location in similar proximity to the nerve. Final location was verified with electrical stimulation. The introducer needle was removed, and the exposed end of the percutaneous lead was attached to an home care consultant al stimulator unit. At the end of the case various electrical parameter combinations were again tested until the patient indicated paresthesia or muscle tension overlapping the distribution of the patient?s typical region of pain. After confirming that lead impedance was in the normal range, the external unit was detached, the needle was removed, and the lead was anchored at the skin. The lead was threaded into the connector block and electrical continuity and desired patient response was confirmed. The connector block was attached to the external stimulator unit. The site was covered with a sterile occlusive dressing and a image was taken to document final placement. Upon completion of the procedure the patient was taken outside the OR where she recovered uneventfully she went home without immediate complications. Orders: Orders FL guidance in treatment room Today M47.816 - Spondylosis without myelopathy or radiculopathy, lumbar region Medications: New lorazepam (Ativan) Take 30 minutes prior to arrival to procedure 1 mg PO ONCE 1 tab 0RF anxiety Coding Level of Care Code Procedure Only Diagnoses Intractable back pain M54.9 Lumbar spondylosis M47.816
--- OUTSIDE RECORDS SUMMARY | 2024-07-10 09:22 | XMS_ITS ---
Author Organization [facility], Address [address] [place] [address] Care Team Providers Care Cadastral Engineer Name Role Phone Laurie Tolliver Unavailable ALLERGIES, ADVERSE REACTIONS, ALERTS Substance Code Code System Type Reaction Severity Status Start Date End Date Penicillins RxNorm Drug allergy () 0 Penicillins Unknown Drug allergy () 1 Cymbalta 433618 RxNorm Drug allergy () 0 MEDICATIONS Medication Code Code System Start Date Stop Date Route Dosage Directions Fill Instructions valacyclovir 0 RxNorm oral cyclobenzaprine 0 RxNorm oral Zithromax Z-Eric 615205 RxNorm 022 06/26 oral 2 omeprazole 0 RxNorm oral benzonatate 971967 RxNorm 022 07/01 oral 1 erythromycin 097276 RxNorm 04/10/20 24 ophthalmic (eye) 0.5 Bactrim DS 534032 RxNorm 023 oral 1 PROBLEMS Problem Name Code Code System Start Date End Date Stat Unspecified abdominal pain (R10.9) 76751912 [facility] 06/10/2022 Inactive Encounter for test, result negative (Z32.02) [facility] 06/14/2022 Inactive Lower abdominal pain, unspecified (R10.30) [facility] 06/14/2022 Inactiv e Bronchitis, acute (J20.9) 58551342 [facility] 06/21/2022 Inactive Cough, unspecified (R05.9) [facility] 06/23/2022 Inactive Contact with and (suspected) exposure to other viral communicable diseases (Z20.828) [facility] 06/23/2022 Inactive Gastro-esophageal reflux disease 942775746 [facility] Active Unspecified asthma, uncomplicated 682064930 [facility] 04/09/2023 Resolved Disruption of wound, unspecified, initial encounter 522663695 [facility] 04/17/2023 Resolved Hordeolum externum left upper eyelid 883932969212008 [facility] 04/10/2024 Active ENCOUNTERS Encounter Diagnosis Code Code System Date Stat us Hordeolum externum left upper eyelid 247011335677953 [facility] 04/10/2024 Active IMMUNIZATIONS * None VITAL SIGNS Code Code System Vitals Name Date Value and Un its 8462-4 [facility] Blood Pressure-Diastolic 04/10/2024 84 mmHg 8480-6 [facility] Blood Pressure-Systolic 04/10/2024 1 12 mmHg 8867-4 [facility] Heart Rate 04/10/2024 94 /min 9279-1 [facility] Respiratory Rate 04/10/2024 18 /min 8310-5 [facility] Body Temperature 04/10/2024 98.8 F 67098-4 inc Oxygen Saturation 04/10/2024 97 % SOCIAL [...]
--- OUTSIDE RECORDS SUMMARY | 2024-07-10 09:22 | XMS_ITS ---
Author Organization [facility], Address [address] [place] [address] Care Team Providers Care Supervisor Hairspring Fabrication Name Role Phone Cristel Jin Unavailable [phone] ALLERGIES, ADVERSE REACTIONS, ALERTS Substance Code Code System Type Reaction Severity Status Start Date End Date Cymbalta 641773 RxNorm Drug allergy () 0 Penicillins RxNorm Drug allergy () 0 Penicillins Unknown Drug allergy () 1 MEDICATIONS Medication Code Code System Start Date Stop Date Route Dosage Directions Fill Instructions valacyclovir 0 RxNorm oral cyclobenzaprine 0 RxNorm oral Zithromax Z-Eric 053763 RxNorm 022 06/26 oral 2 omeprazole 0 RxNorm oral benzonatate 339046 RxNorm 022 07/01 oral 1 erythromycin 397905 RxNorm 04/10/20 24 ophthalmic (eye) 0.5 Bactrim DS 295411 RxNorm 023 oral 1 PROBLEMS Problem Name Code Code System Start Date End Date Stat Unspecified abdominal pain (R10.9) 76298071 [facility] 06/10/2022 Inactive Encounter for test, result negative (Z32.02) [facility] 06/14/2022 Inactive Lower abdominal pain, unspecified (R10.30) [facility] 06/14/2022 Inactiv e Bronchitis, acute (J20.9) 81554171 [facility] 06/21/2022 Inactive Cough, unspecified (R05.9) [facility] 06/23/2022 Inactive Contact with and (suspected) exposure to other viral communicable diseases (Z20.828) [facility] 06/23/2022 Inactive Gastro-esophageal reflux disease 975258457 [facility] Active Unspecified asthma, uncomplicated 965123593 [facility] 04/09/2023 Resolved Disruption of wound, unspecified, initial encounter 866504470 [facility] 04/17/2023 Resolved Hordeolum externum left upper eyelid 921968364623414 [facility] 04/10/2024 Active ENCOUNTERS Encounter Diagnosis Code Code System Date Stat us Contusion of right hand, incosmo tial encounter 78232387717890965 [facility] 03/14/2023 Active IMMUNIZATIONS * None VITAL SIGNS Code Code System Vitals Name Date Value and Un its 8462-4 [facility] Blood Pressure-Diastolic 03/14/2023 95 mmHg 8480-6 [facility] Blood Pressure-Systolic 03/14/2023 1 38 mmHg 8867-4 [facility] Heart Rate 03/14/2023 102 /min 9279-1 [facility] Respiratory Rate 03/14/2023 18 /min 8310-5 [facility] Body Temperature 03/14/2023 98.4 F 02355-3 [facility] Oxygen Saturation 03/14/2023 98 % SOCIAL [...]
--- OUTSIDE RECORDS SUMMARY | 2024-07-10 09:23 | XMS_ITS ---
Author Organization [facility], Address [address] [place] [address] Care Team Providers Care Survey Superintendent Name Role Phone Bernadette Ma Unavailable [phone] ALLERGIES, ADVERSE REACTIONS, ALERTS Substance Code Code System Type Reaction Severity Status Start Date End Date Penicillins RxNorm Drug allergy () 0 Cymbalta 783940 RxNorm Drug allergy () 0 Penicillins Unknown Drug allergy () 1 MEDICATIONS Medication Code Code System Start Date Stop Date Route Dosage Directions Fill Instructions valacyclovir 0 RxNorm oral cyclobenzaprine 0 RxNorm oral Zithromax Z-Eric 288226 RxNorm 022 06/26 oral 2 omeprazole 0 RxNorm oral benzonatate 773190 RxNorm 022 07/01 oral 1 erythromycin 869347 RxNorm 04/10/20 24 ophthalmic (eye) 0.5 Bactrim DS 065283 RxNorm 023 oral 1 PROBLEMS Problem Name Code Code System Start Date End Date Stat us Unspecified abdominal pain (R10.9) 37690402 [facility] 06/10/2022 Inactive Encounter for test, result negative (Z32.02) [facility] 06/14/2022 Inactive Lower abdominal pain, unspecified (R10.30) [facility] 06/14/2022 Inactiv e Bronchitis, acute (J20.9) 27068197 [facility] 06/21/2022 Inactive Cough, unspecified (R05.9) [facility] 06/23/2022 Inactive Contact with and (suspected) exposure to other viral communicable diseases (Z20.828) [facility] 06/23/2022 Inactive Gastro-esophageal reflux disease 074973056 [facility] Active Unspecified asthma, uncomplicated 714603099 [facility] 04/09/2023 Resolved Disruption of wound, unspecified, initial encounter 031373033 [facility] 04/17/2023 Resolved Hordeolum externum left upper eyelid 657907340978517 [facility] 04/10/2024 Active ENCOUNTERS Encounter Diagnosis Code Code System Date Stat us Pneumonia, unspecified organism 528094773 [facility] 04/09 Active Unspecified asthma, uncomplicated 919254190 [facility] Active IMMUNIZATIONS * None VITAL SIGNS Code Code System Vitals Name Date Value and Un its 8462-4 [facility] Blood Pressure-Diastolic 04/09/2023 96 mmHg 8480-6 [facility] Blood Pressure-Systolic 04/09/2023 1 36 mmHg 8867-4 [facility] Heart Rate 04/09/2023 101 /min 9279-1 [facility] Respiratory Rate 04/09/2023 18 /min 8310-5 [facility] Body Temperature 04/09/2023 98.3 F 74117-8 [facility] Oxygen Saturation 04/09/2023 96 % SOCIAL [...] Assay, Amplified Probe Molecular RT-PCR / NAAT 69852 CPT 04/09/2023 Strep A, DNA, Amplified Probe PCR 41468 CPT 04/09/2023 GOALS * None HEALTH CONCERNS * No Health Concerns FUNCTIONAL AND COGNITIVE STATUS * None CONSULTATION NOTES * None DISCHARGE SUMMARY NOTES * None HISTORY AND PHYSICAL NOTES * Reason for visit - Illness IMAGING NOTES * None LABORATORY REPORT NARRATIVE NOTES * None PATHOLOGY REPORT NARRATIVE NOTES * None PROGRESS NOTES * None
--- OUTSIDE RECORDS SUMMARY | 2024-07-10 09:23 | XMS_ITS ---
Author Organization [facility], Address [address] [place] [address] Care Team Providers Care Account Executive Software Sales Name Role Phone Cristel Jin Unavailable [phone] ALLERGIES, ADVERSE REACTIONS, ALERTS Substance Code Code System Type Reaction Severity Status Start Date End Date Cymbalta 944491 RxNorm Drug allergy () 0 Penicillins RxNorm Drug allergy () 0 Penicillins Unknown Drug allergy () 1 MEDICATIONS Medication Code Code System Start Date Stop Date Route Dosage Directions Fill Instructions valacyclovir 0 RxNorm oral cyclobenzaprine 0 RxNorm oral Zithromax Z-Eric 669842 RxNorm 022 06/26 oral 2 omeprazole 0 RxNorm oral benzonatate 402297 RxNorm 022 07/01 oral 1 erythromycin 711302 RxNorm 04/10/20 24 ophthalmic (eye) 0.5 Bactrim DS 725743 RxNorm 023 oral 1 PROBLEMS Problem Name Code Code System Start Date End Date Stat Unspecified abdominal pain (R10.9) 43134113 [facility] 06/10/2022 Inactive Encounter for test, result negative (Z32.02) [facility] 06/14/2022 Inactive Lower abdominal pain, unspecified (R10.30) [facility] 06/14/2022 Inactiv e Bronchitis, acute (J20.9) 70772637 [facility] 06/21/2022 Inactive Cough, unspecified (R05.9) [facility] 06/23/2022 Inactive Contact with and (suspected) exposure to other viral communicable diseases (Z20.828) [facility] 06/23/2022 Inactive Gastro-esophageal reflux disease 590806851 [facility] Active Unspecified asthma, uncomplicated 983368946 [facility] 04/09/2023 Resolved Disruption of wound, unspecified, initial encounter 926707576 [facility] 04/17/2023 Resolved Hordeolum externum left upper eyelid 781541278899848 [facility] 04/10/2024 Active ENCOUNTERS Encounter Diagnosis Code Code System Date Stat us Contusion of right hand, incosmo tial encounter 14398840386776743 [facility] 03/14/2023 Active IMMUNIZATIONS * None VITAL SIGNS Code Code System Vitals Name Date Value and Un its 8462-4 [facility] Blood Pressure-Diastolic 03/14/2023 95 mmHg 8480-6 [facility] Blood Pressure-Systolic 03/14/2023 1 38 mmHg 8867-4 [facility] Heart Rate 03/14/2023 102 /min 9279-1 [facility] Respiratory Rate 03/14/2023 18 /min 8310-5 [facility] Body Temperature 03/14/2023 98.4 F 03411-4 [facility] Oxygen Saturation 03/14/2023 98 % SOCIAL [...]
--- OUTSIDE RECORDS SUMMARY | 2024-07-10 09:23 | XMS_ITS ---
Author Organization [facility], Address [address] [place] [address] Care Team Providers Care Sausage Maker Name Role Phone Deo Gallardo [phone] ALLERGIES, ADVERSE REACTIONS, ALERTS Substance Code Code System Type Reaction Severity Status Start Date End Date Penicillins RxNorm Drug allergy () 0 Cymbalta 499118 RxNorm Drug allergy () 0 Penicillins Unknown Drug allergy () 1 MEDICATIONS Medication Code Code System Start Date Stop Date Route Dosage Directions Fill Instructions valacyclovir 0 RxNorm oral cyclobenzaprine 0 RxNorm oral Zithromax Z-Eric 225640 RxNorm 022 06/26 oral 2 omeprazole 0 RxNorm oral benzonatate 166330 RxNorm 022 07/01 oral 1 erythromycin 996967 RxNorm 04/10/20 24 ophthalmic (eye) 0.5 Bactrim DS 583340 RxNorm 023 oral 1 PROBLEMS Problem Name Code Code System Start Date End Date Stat us Unspecified abdominal pain (R10.9) 81319902 [facility] 06/10/2022 Inactive Encounter for test, result negative (Z32.02) [facility] 06/14/2022 Inactive Lower abdominal pain, unspecified (R10.30) [facility] 06/14/2022 Inactiv e Bronchitis, acute (J20.9) 29353624 [facility] 06/21/2022 Inactive Cough, unspecified (R05.9) [facility] 06/23/2022 Inactive Contact with and (suspected) exposure to other viral communicable diseases (Z20.828) [facility] 06/23/2022 Inactive Gastro-esophageal reflux disease 351717975 [facility] Active Unspecified asthma, uncomplicated 911625707 [facility] 04/09/2023 Resolved Disruption of wound, unspecified, initial encounter 842715599 [facility] 04/17/2023 Resolved Hordeolum externum left upper eyelid 336096881415315 [facility] 04/10/2024 Active ENCOUNTERS Encounter Diagnosis Code Code System Date Stat us Disruption of wound, unspeci fied, initial encounter 581832382 [facility] 04/17/2023 Active IMMUNIZATIONS * None VITAL SIGNS Code Code System Vitals Name Date Value and Un its 8462-4 [facility] Blood Pressure-Diastolic 04/17/2023 80 mmHg 8480-6 [facility] Blood Pressure-Systolic 04/17/2023 1 36 mmHg 8867-4 [facility] Heart Rate 04/17/2023 95 /min 9279-1 [facility] Respiratory Rate 04/17/2023 18 /min 8310-5 [facility] Body Temperature 04/17/2023 97.1 F 71749-5 [facility] Oxygen Saturation 04/17/2023 99 % SOCIAL [...]
--- OUTSIDE RECORDS SUMMARY | 2024-07-10 09:23 | XMS_ITS ---
Author Organization [facility], Address [address] [place] [address] Care Team Providers Care Senior Logistics Manager Name Role Phone Deo Gallardo [phone] ALLERGIES, ADVERSE REACTIONS, ALERTS Substance Code Code System Type Reaction Severity Status Start Date End Date Penicillins RxNorm Drug allergy () 0 Cymbalta 908467 RxNorm Drug allergy () 0 Penicillins Unknown Drug allergy () 1 MEDICATIONS Medication Code Code System Start Date Stop Date Route Dosage Directions Fill Instructions valacyclovir 0 RxNorm oral cyclobenzaprine 0 RxNorm oral Zithromax Z-Eric 828284 RxNorm 022 06/26 oral 2 omeprazole 0 RxNorm oral benzonatate 139532 RxNorm 022 07/01 oral 1 erythromycin 604599 RxNorm 04/10/20 24 ophthalmic (eye) 0.5 Bactrim DS 121714 RxNorm 023 oral 1 PROBLEMS Problem Name Code Code System Start Date End Date Stat us Unspecified abdominal pain (R10.9) 96085807 [facility] 06/10/2022 Inactive Encounter for test, result negative (Z32.02) [facility] 06/14/2022 Inactive Lower abdominal pain, unspecified (R10.30) [facility] 06/14/2022 Inactiv e Bronchitis, acute (J20.9) 84991725 [facility] 06/21/2022 Inactive Cough, unspecified (R05.9) [facility] 06/23/2022 Inactive Contact with and (suspected) exposure to other viral communicable diseases (Z20.828) [facility] 06/23/2022 Inactive Gastro-esophageal reflux disease 872340558 [facility] Active Unspecified asthma, uncomplicated 964944652 [facility] 04/09/2023 Resolved Disruption of wound, unspecified, initial encounter 292964293 [facility] 04/17/2023 Resolved Hordeolum externum left upper eyelid 202454434414792 [facility] 04/10/2024 Active ENCOUNTERS Encounter Diagnosis Code Code System Date Stat us Disruption of wound, unspeci fied, initial encounter 246414672 [facility] 04/17/2023 Active IMMUNIZATIONS * None VITAL SIGNS Code Code System Vitals Name Date Value and Un its 8462-4 [facility] Blood Pressure-Diastolic 04/17/2023 80 mmHg 8480-6 [facility] Blood Pressure-Systolic 04/17/2023 1 36 mmHg 8867-4 [facility] Heart Rate 04/17/2023 95 /min 9279-1 [facility] Respiratory Rate 04/17/2023 18 /min 8310-5 [facility] Body Temperature 04/17/2023 97.1 F 71144-4 [facility] Oxygen Saturation 04/17/2023 99 % SOCIAL [...]
--- OUTSIDE RECORDS SUMMARY | 2024-07-10 09:23 | XMS_ITS ---
Author Organization [facility], Address [address] [place] [address] Care Team Providers Care Meat Puller Name Role Phone Cristel Jin Unavailable [phone] ALLERGIES, ADVERSE REACTIONS, ALERTS Substance Code Code System Type Reaction Severity Status Start Date End Date Penicillins RxNorm Drug allergy () 0 Penicillins Unknown Drug allergy () 1 Cymbalta 927172 RxNorm Drug allergy () 0 MEDICATIONS Medication Code Code System Start Date Stop Date Route Dosage Directions Fill Instructions valacyclovir 0 RxNorm oral cyclobenzaprine 0 RxNorm oral Zithromax Z-Eric 902746 RxNorm 022 06/26 oral 2 omeprazole 0 RxNorm oral benzonatate 665781 RxNorm 022 07/01 oral 1 erythromycin 364567 RxNorm 04/10/20 24 ophthalmic (eye) 0.5 Bactrim DS 998290 RxNorm 023 oral 1 PROBLEMS Problem Name Code Code System Start Date End Date Stat Unspecified abdominal pain (R10.9) 57221951 [facility] 06/10/2022 Inactive Encounter for test, result negative (Z32.02) [facility] 06/14/2022 Inactive Lower abdominal pain, unspecified (R10.30) [facility] 06/14/2022 Inactiv e Bronchitis, acute (J20.9) 74199731 [facility] 06/21/2022 Inactive Cough, unspecified (R05.9) [facility] 06/23/2022 Inactive Contact with and (suspected) exposure to other viral communicable diseases (Z20.828) [facility] 06/23/2022 Inactive Gastro-esophageal reflux disease 126459700 [facility] Active Unspecified asthma, uncomplicated 141981258 [facility] 04/09/2023 Resolved Disruption of wound, unspecified, initial encounter 036234538 [facility] 04/17/2023 Resolved Hordeolum externum left upper eyelid 347322298033592 [facility] 04/10/2024 Active ENCOUNTERS Encounter Diagnosis Code Code System Date Stat us Encounter for removal of sutures 65518938 [facility] 04/06/2023 Active IMMUNIZATIONS * None VITAL SIGNS Code Code System Vitals Name Date Value and Un its 8462-4 [facility] Blood Pressure-Diastolic 04/06/2023 106 mmHg 8480-6 [facility] Blood Pressure-Systolic 04/06/2023 1 59 mmHg 8867-4 [facility] Heart Rate 04/06/2023 103 /min 9279-1 [facility] Respiratory Rate 04/06/2023 18 /min 8310-5 [facility] Body Temperature 04/06/2023 98.7 F 52407-7 [facility] Oxygen Saturation 04/06/2023 97 % SOCIAL HISTORY * None PROCEDURES Code Code System Procedure Date Status Notes 27935 Cpt4 Suture Removal 04/06/2023 completed Deo Gallardo [...]
--- OUTSIDE RECORDS SUMMARY | 2024-07-10 09:23 | XMS_ITS ---
Author Organization [facility], Address [address] [place] [address] Care Team Providers Care Green Chain Puller Name Role Phone Bernadette Ma Unavailable [phone] ALLERGIES, ADVERSE REACTIONS, ALERTS Substance Code Code System Type Reaction Severity Status Start Date End Date Cymbalta 840899 RxNorm Drug allergy () 0 Penicillins RxNorm Drug allergy () 0 Penicillins Unknown Drug allergy () 1 MEDICATIONS Medication Code Code System Start Date Stop Date Route Dosage Directions Fill Instructions valacyclovir 0 RxNorm oral cyclobenzaprine 0 RxNorm oral Zithromax Z-Eric 301764 RxNorm 022 06/26 oral 2 omeprazole 0 RxNorm oral benzonatate 434821 RxNorm 022 07/01 oral 1 erythromycin 702931 RxNorm 04/10/20 24 ophthalmic (eye) 0.5 Bactrim DS 190605 RxNorm 023 oral 1 PROBLEMS Problem Name Code Code System Start Date End Date Stat Unspecified abdominal pain (R10.9) 05861750 [facility] 06/10/2022 Inactive Encounter for test, result negative (Z32.02) [facility] 06/14/2022 Inactive Lower abdominal pain, unspecified (R10.30) [facility] 06/14/2022 Inactiv e Bronchitis, acute (J20.9) 49692242 [facility] 06/21/2022 Inactive Cough, unspecified (R05.9) [facility] 06/23/2022 Inactive Contact with and (suspected) exposure to other viral communicable diseases (Z20.828) [facility] 06/23/2022 Inactive Gastro-esophageal reflux disease 127957298 [facility] Active Unspecified asthma, uncomplicated 131235215 [facility] 04/09/2023 Resolved Disruption of wound, unspecified, initial encounter 100186182 [facility] 04/17/2023 Resolved Hordeolum externum left upper eyelid 157415658392435 [facility] 04/10/2024 Active ENCOUNTERS Encounter Diagnosis Code Code System Date Stat us Pneumonia, unspecified organism 644171292 [facility] 04/09 Active Unspecified asthma, uncomplicated 918424516 [facility] Active IMMUNIZATIONS * None VITAL SIGNS Code Code System Vitals Name Date Value and Un its 8462-4 [facility] Blood Pressure-Diastolic 04/09/2023 96 mmHg 8480-6 [facility] Blood Pressure-Systolic 04/09/2023 1 36 mmHg 8867-4 [facility] Heart Rate 04/09/2023 101 /min 9279-1 [facility] Respiratory Rate 04/09/2023 18 /min 8310-5 [facility] Body Temperature 04/09/2023 98.3 F 39959-7 [facility] Oxygen Saturation 04/09/2023 96 % SOCIAL [...] Assay, Amplified Probe Molecular RT-PCR / NAAT 64350 CPT 04/09/2023 Strep A, DNA, Amplified Probe PCR 14363 CPT 04/09/2023 GOALS * None HEALTH CONCERNS * No Health Concerns FUNCTIONAL AND COGNITIVE STATUS * None CONSULTATION NOTES * None DISCHARGE SUMMARY NOTES * None HISTORY AND PHYSICAL NOTES * Reason for visit - Illness IMAGING NOTES * None LABORATORY REPORT NARRATIVE NOTES * None PATHOLOGY REPORT NARRATIVE NOTES * None PROGRESS NOTES * None
--- OUTSIDE RECORDS SUMMARY | 2024-07-10 09:23 | XMS_ITS ---
Author Organization [facility], Address [address] [place] [address] Care Team Providers Care Candy Dipper Hand Name Role Phone Laurie Tolliver Unavailable [phone] ALLERGIES, ADVERSE REACTIONS, ALERTS Substance Code Code System Type Reaction Severity Status Start Date End Date Cymbalta 254148 RxNorm Drug allergy () 0 Penicillins Unknown Drug allergy () 1 Penicillins RxNorm Drug allergy () 0 MEDICATIONS Medication Code Code System Start Date Stop Date Route Dosage Directions Fill Instructions valacyclovir 0 RxNorm oral cyclobenzaprine 0 RxNorm oral Zithromax Z-Eric 854370 RxNorm 022 06/26 oral 2 omeprazole 0 RxNorm oral benzonatate 627700 RxNorm 022 07/01 oral 1 erythromycin 850948 RxNorm 04/10/20 24 ophthalmic (eye) 0.5 Bactrim DS 505093 RxNorm 023 oral 1 PROBLEMS Problem Name Code Code System Start Date End Date Stat Unspecified abdominal pain (R10.9) 66308983 [facility] 06/10/2022 Inactive Encounter for test, result negative (Z32.02) [facility] 06/14/2022 Inactive Lower abdominal pain, unspecified (R10.30) [facility] 06/14/2022 Inactiv e Bronchitis, acute (J20.9) 95867270 [facility] 06/21/2022 Inactive Cough, unspecified (R05.9) [facility] 06/23/2022 Inactive Contact with and (suspected) exposure to other viral communicable diseases (Z20.828) [facility] 06/23/2022 Inactive Gastro-esophageal reflux disease 757595848 [facility] Active Unspecified asthma, uncomplicated 427681683 [facility] 04/09/2023 Resolved Disruption of wound, unspecified, initial encounter 828055261 [facility] 04/17/2023 Resolved Hordeolum externum left upper eyelid 533075155016558 [facility] 04/10/2024 Active ENCOUNTERS Encounter Diagnosis Code Code System Date Stat us Hordeolum externum left upper eyelid 001331685355540 [facility] 04/10/2024 Active IMMUNIZATIONS * None VITAL SIGNS Code Code System Vitals Name Date Value and Un its 8462-4 [facility] Blood Pressure-Diastolic 04/10/2024 84 mmHg 8480-6 [facility] Blood Pressure-Systolic 04/10/2024 1 12 mmHg 8867-4 [facility] Heart Rate 04/10/2024 94 /min 9279-1 [facility] Respiratory Rate 04/10/2024 18 /min 8310-5 [facility] Body Temperature 04/10/2024 98.8 F 78717-6 inc Oxygen Saturation 04/10/2024 97 % SOCIAL [...]
[2024-07-10 09:47] VITALS: BP 110/78; PULSE 89; O2SAT 97
== END 2024-07-10 10:02 | disposition home or self-care (01) ==
LOC: HO.PMCPRC 09:01
PROVIDERS: PCP Internal Medicine; Visit Provider Anesthesiology
DX: M54.9 Dorsalgia, unspecified (principal); M47.816 Spondylosis without myelopathy or radiculopathy, lumbar region
CPT/HCPCS: 64555

== ENCOUNTER → 2024-07-17 09:51 | Outpatient (BNVA) | payer OTHER, SELFPAY | PROVIDERS: PCP Internal Medicine; Visit Provider Registered Nurse Emergency ==

== ENCOUNTER 2024-07-18 09:58 | Outpatient (AMB) | payer OTHER, SELFPAY ==
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
[2024-07-18 10:06] VITALS: BP 114/75; PULSE 106; RESP 16; O2SAT 97; BMI 31.4
== END 2024-07-18 10:38 | disposition home or self-care (01) ==
PROVIDERS: PCP Internal Medicine; Visit Provider Registered Nurse Emergency
DX: M47.816 Spondylosis without myelopathy or radiculopathy, lumbar region (principal); S73.191A Other sprain of right hip, initial encounter; M25.561 Pain in right knee; M54.9 Dorsalgia, unspecified
CPT/HCPCS: 99024

== ENCOUNTER → 2024-07-18 09:58 | Outpatient (BNVA) | payer OTHER, SELFPAY | PROVIDERS: PCP Internal Medicine; Visit Provider Registered Nurse Emergency | DX: M47.816 Spondylosis without myelopathy or radiculopathy, lumbar region (principal); M25.561 Pain in right knee; S73.191A Other sprain of right hip, initial encounter; X58.XXXA Exposure to other specified factors, initial encounter; Y93.9 Activity, unspecified; Y92.9 Unspecified place or not applicable; Y99.9 Unspecified external cause status; Z96.82 Presence of neurostimulator | CPT/HCPCS: 99212 ==

== ENCOUNTER 2024-08-16 13:07 | Outpatient (AMB) | payer OTHER, SELFPAY ==
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
[2024-08-16 13:18] VITALS: BP 128/86; PULSE 108; O2SAT 99
--- OUTSIDE RECORDS SUMMARY | 2024-08-16 13:18 | XMS_ITS | Encounter Summary ---
Author Organization [facility] Address [address] [place] [address] Care Team Providers Care Academic Registrar Name Role Phone Chelo Gama DO Primary Care Provider [phone] Reason for Visit * Reason Onset Date Comments provider call back 07/20/2024 Encounter Details Date Type Department Care Team (Late st Contact Info) Description 07/20/2024 Telephone Internal Medicine - [facility] [address] [place] [address] Chelo Gama DO [address] [place] [address] provider call back Social History Tobacco Use Types Packs/Day Years Used Date Smoking Tobacco: Every Day Cigarettes 1 32.1 Started: 07/04/1992 Smokeless Tobacco: Never Alcohol Use Standard Drinks/Week Comments No 0 (1 standard drink = 0.6 oz pur e alcohol) Comments No Sex and Gender Information Value Date Recorded Sex Assigned at Not on file Legal Sex Female 1:13 PM EST Gender Identity Not on file Sexual Orientation Not on file documented as of this encounter Progress Notes * Nissa Jesus MA - 07/20/2024 11:43 AM EST Meds updated * Katalina Dodge - 07/20/2024 11:33 AM EST Patient would like for us to know that pain management in [place] gave her a new med: celecoxib 200mg 1 everyday She also stopped taking the Ibuprofen Just wanted us to update her chart documented in this encounter Plan of Treatment Upcoming Encounters Date Type Department Care Team (Late st Contact Info) Description 12/20/2024 2:30 PM EDT Office Visit [employer] - [facility] [address] [place] [address] Fortunato Mckeon PA [address] [place] [address] documented as of this encounter Visit Diagnoses Not on filedocumented in this encounter Historical Medications * This list may reflect changes made after this encounter. celecoxib (CeleBREX) 200 mg capsule Take 1 capsule (200 mg total) by mouth 1 (one) time each day. 07/05/2024 added in this encounter Care Teams Academic Registrar Relationship Specialty Start Date End Date Chelo Gama DO [address] [place] [address] PCP - General 04/27/24 documented as of this encounter
--- OUTSIDE RECORDS SUMMARY | 2024-08-16 13:18 | XMS_ITS | Clinical Summary ---
Author Organization [facility] Address [address] [place] [id number] Care Team Providers Care Coach Professional Athletes Name Role Phone Meghan Macdonald MD Primary Care Provider [phone] Allergies Active Allergy Reactions Criticality Noted Date Comments Amoxicillin Hives 04/28/2015 Patient reports yeast infection Duloxetine Hcl 12/06/2017 Rash, joint pain Penicillin V 02/04/2020 Sumatriptan Swelling 12/06/2018 Verapamil Swelling 12/14/2018 Feet swelling Medications Medication Sig Dispensed Refills Start Date End Date Status valACYclovir (VALTREX) 500 MG tablet Take 1 tablet (500 mg total) by mouth. 0 01/28/2020 Active albuterol (ProAir HFA) 108 (90 Base) MCG/ACT inhaler Inhale 2 puffs into the lungs. 0 01/28/2020 Active ibuprofen 600 MG tablet Take 1 tablet (600 mg total) by mouth every 6 (six) hours as needed for pain. 0 Active meloxicam (MOBIC) 15 MG tablet Take 1 tablet (15 mg total) by mouth daily as needed for pain. 30 tablet 0 01/06/2023 Active methocarbamol (ROBAXIN) 500 MG tablet Take 1 tablet (500 mg total) by mouth 3 (three) times a day as needed (muscle spasms). 90 tablet 0 01/06/2023 Active diazePAM (VALIUM) tablet 5 mg Take 1 tablet (5 mg total) by mouth once as needed for anxiety (for 30 minutes prior to procedure) for up to 1 dose. 1 tablet 0 01/24/2023 Active cyclobenzaprine (FLEXERIL) 5 MG tablet TAKE ONE TABLET BY MOUTH THREE TIMES A DAY NEEDED FOR MUSCLE SPASM 90 tablet 0 03/12/2024 Active Family History Medical History Relation Name Comments Obesity Father Cancer Mother Relation Name Status Comments Father Alive Mother Alive Social History Tobacco Use Types Packs/Day Years Used Date Smoking Tobacco: Every Day Cigarettes 0.5 30 Smokeless Tobacco: Never Tobacco Cessation:Ready to Q uit: Not Asked; Counseling Given: Not Answered Alcohol Use Standard Drinks/Week Comments Not Asked 0 (1 standard drink = 0.6 oz pur e alcohol) every night Sex and Gender Information Value Date Recorded Sex Assigned at Not on file Gender Identity Not on file Sexual Orientation Not on file Job Start Date Occupation Industry Not on file Not on file Not on file Last Filed Vital Signs Vital Sign Reading Time Taken Comments Blood Pressure 118/90 01/06/2023 2:31 PM EDT Pulse 100 01/06/2023 2:31 PM EDT Temperature 36.3 ??C (97.4 ??F) 01/06/2023 2:31 PM ED T Respiratory Rate - - Oxygen Saturation 96% 01/06/2023 2:31 PM EDT Inhaled Oxygen Concentration - - Weight 81.6 kg (180 lb) 01/06/2023 2:31 PM EDT Height 165.1 cm (5' 5 ) 01/06/2023 2:31 PM EDT Body Mass Index 29.95 01/06/2023 2:31 PM EDT Plan of Treatment Health Maintenance Due Date Last Done Comments Hepatitis C Screening 1980 COVID-19 Vaccine (#1) 1980 Pneumococcal Vaccine (1 of 2 - PCV) 1986 Depression Screening 1992 Preventative Health Evaluation 1998 Tobacco Cessation Counseling 1998 Cervical Cancer Screening (P ap Smear) 2001 Hepatitis B Vaccines (2 of 3 - 19+ 3-dose series) 11/29/2016 11/01/2016 DTap / Tdap / Td (2 - Td or Tdap) 03/10/2022 012 Influenza Vaccine (#1) 2024 RSV Ped < 20 months Aged Out No longe r eligible based on patient's age to complete this topic Care Teams Coach Professional Athletes Relationship Specialty Start Date End Date Meghan Macdonald MD PCP - General Internal Medicine 01/03/19
--- OUTSIDE RECORDS SUMMARY | 2024-08-16 13:18 | XMS_ITS | Clinical Summary ---
Author Organization [place] [address] [address] [facility] Building Address [address] [place] [phone] Phone Care Team Providers Care Saw Maker Name Role Phone Laureen Gamaa Primary Care Provider [phone] Allergies Active Allergy Reactions Criticality Noted Date Comments Amoxicillin Hives 04/28/2015 Other Reaction(s): Hives/Urticaria Patient reports yeast infection Patient reports yeast infection Duloxetine Hcl 12/06/2017 Rash, joint pain Penicillin V 02/04/2020 Sumatriptan Swelling 12/06/2018 Verapamil Swelling 12/14/2018 Feet swelling Feet swelling Medications valACYclovir (VALTREX) 500 mg tablet Take 1 tablet (500 mg total) by mouth 1 (one) time each day. 04/30/20 24 Active ibuprofen (ADVIL,MOTRIN) 600 mg tablet Take 1 Tablet by mouth every 6 hours as needed for Pain. 02/22/20 24 Active diclofenac (VOLTAREN) 1 % topical gel Apply 1 Act topically 3 times daily as needed for Other (knee bursitis). 05/17/20 23 Active multivitamin (MULTIPLE VITAMINS ORAL) Take by mouth. Active OMEPRAZOLE ORAL Take 40 mg by mouth daily. Active CYANOCOBALAMIN, VITAMIN B-12, ORAL Take by mouth. Active LORazepam (ATIVAN) 1 mg tablet TAKE ONE TABLET BY MOUTH ONCE NEEDED FOR ANXIETY. TAKE 30 MINUTES PRIOR TO ARRIVAL TO PROCEDURE 06/06/20 24 Active cyclobenzaprine (FLEXERIL) 5 mg tablet Take 1 tablet (5 mg total) by mouth 3 (three) times a day if needed for muscle spasms. 90 tablet 1 06/21/20 24 025 Active fluticasone propion-salmete roL (ADVAIR DISKUS) 100-50 mcg/dose diskus inhaler Inhale 1 puff by mouth 2 (two) times a day. Rinse mouth with water after use to reduce aftertaste and incidence of candidiasis. Do not swallow. 1 each 07/20/19 25 Active albuterol HFA (Ventolin HFA) 90 mcg/actuation inhalerIndicati ons:Mild intermittent asthma without complication Inhale 2 puffs by mouth every 4 (four) hours if needed for wheezing. 6.7 g 07/20/19 25 Active celecoxib (CeleBREX) 200 mg capsule Take 1 capsule (200 mg total) by mouth 1 (one) time each day. 07/05/19 25 Active nicotine polacrilex (COMMIT) [address] 1 LOZENGE INTO MOUTH BETWEEN CHEEKS AND GUMS EVERY 2 HOURS NEEDED FOR SMOKING CESSATION 288 lozenge 1 08/14/19 25 Active albuterol HFA (Ventolin HFA) 90 mcg/actuation inhaler Inhale 2 Puffs into the lungs every 4 hours as needed for Cough or Wheezing. 04/30/20 24 025 Discontinued(R eorder) fluticasone propion-salmete roL (ADVAIR DISKUS) 100-50 mcg/dose diskus inhaler Inhale 1 Puff into the lungs 2 Times Daily. 04/30/20 24 025 Discontinued(R eorder) nicotine polacrilex (NICORETTE) [address] 1 lozenge (4 mg total) into mouth between cheek and gum every 2 (two) hours if needed for smoking cessation. 360 lozenge 1 06/21/20 24 025 Discontinued Active Problems Problem Noted Date Diagnosed Date Recurrent HSV (herpes simplex virus) 05/18/2024 Overview (05/18/2024): on leg, positive viral culture Cervical spondylosis 10/21/2022 Overview (05/18/2024): Last Assessment & Plan: Patient also describes chronic daily neck pain, worse with certain activities. She states if she holds her neck forward, like eating a bowl of cereal, she will note muscle spasm and fasciculation where her head will shake, she feels this has been going on since approximately 2014. She uses ibuprofen 600 mg approximately 4 times a day for her neck and low back pain. She does not have radiating pain into the arms, states since she had her carpal tunnel surgeries that helped her hand symptoms, in July she had her right carpal tunnel release. She does note that she has been dropping things, which is also chronic. Patient had C-spine x-rays today, official report pending, no signs of instability, multilevel degenerative changes with anterior osteophytes noted primarily C3-4, C4-5, C5-6. We reviewed the images for x-rays and her prior C-spine MRI 2018 in detail on the computer, on her prior C-spine MRI she had multilevel degenerative changes; C4-5, C5-6 disc bulging but no cord compression. Ms. Boyer has cervical spondylosis noted on C-spine x-rays, chronic neck pain, would like to try PT and acupuncture. She has a follow-up appointment in 6 weeks so we can go over her lumbar and cervical issues, she will need an updated C-spine MRI if she is not seeing improvement in her neck pain. Right carpal tunnel syndrome 05/19/2022 NAFLD (nonalcoholic fatty liver disease) 021 Transaminitis 12/12/2020 Impingement syndrome involving patellar fat pad 03/12/2020 Impingement syndrome, shoulder, right 03/12/2020 Tendinitis of right rotator cuff 03/12/2020 Closed nondisplaced fracture of greater tuberosity of right humerus 02/04/2020 Breast fibroadenoma, left 02/14/2019 Cervical disc disorder at C4-C5 level with radic ulopathy 12/11/2018 Overview (05/18/2024): S/p MRI 12/2018 with compression of anterior spinal cord and mild stenosis. Referred to neurosurgery. Lumbar stenosis 12/11/2018 Overview (05/18/2024): With left L4 nerve root compression. 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 She is very active, has to do a lot of standing. With standing for extended periods of time she has burning across the and burning numbness down both legs. She states it feels like there is rocks in her low back. She also has pain that comes and goes between either hip, and bilateral knee pain. She was seen back in 2019, was being treated with conservative management at the time, Dr. Villalpando had talked to her about working on quitting smoking should she need surgery in the future. Patient states she was doing well using nicotine lozenges, was down to 2 cigarettes a day, was under stress and started smoking again. She plans to work on quitting smoking again. Unfortunately she also recently gained some weight, plans to work on weight loss, tries to eat healthy. Denies bowel bladder incontinence. She states between the neck and low back pain, if she had to pick what is worse, her low back pain is severe and constant whereas her neck pain is daily but bearable approximately 5 days a week. She rates her low back pain 8-10/10, at best on a good day she might be able to rate her pain a 4 or 5 around bedtime when she is lying down. She has not recently tried PT, injections, acupuncture, she last tried PT and injections around 2016. She also has diagnosis of bursitis in the right foot, rotator cuff tears bilaterally, issues with her meniscus bilateral knees. Patient had lumbar spine x-rays done today, official report pending, no signs of instability, appears to be decreased disc height L5-S1 >L4-5. We also reviewed her prior lumbar MRI images from 2019 done at [facility] on the computer in detail, at that time she had some disc desiccation L3-4 and L4-5, no significant stenosis noted. Ms. Boyer would like to try physical therapy and acupuncture, prescription provided. She has a follow-up appointment in 6 weeks, if she is not seeing improvement she will need an updated MRI lumbar spine. She will work on smoking cessation. I asked her to call with any questions or concerns. All questions answered on today's visit. Known medical problems 08/08/2014 Overview (05/18/2024): Nonossifying fibroma, distal right femur metaphysis, MRI 07/2014 Asthma 11/05/2013 Chronic tension headaches 12/28/2011 LGSIL on Pap smear of cervix 11/11/2011 Overview (05/18/2024): History: PAP 09/10/2011: ASCUS with High Risk HPV DNA detected. Colposcopy 11/11/2011: patient ; mild acetowhite epithelium seen with no abnormal vessels appreciated; biopsy not taken. PAP 08/31.2013: NIL PAP 01/21/2014: ASCUS, +HPV PAP 06/18/2015: LSIL, few cells raise the possibility of moderate dysplasia; +HPV Colposcopy 07/10/2015 - LGSIL, ECC neg PAP 07/14/2017: LSIL, +HPV Pap 12/2018 ASCUS HPV neg Adhesive capsulitis of shoulder 10/06/2006 Overview (05/18/2024): Bursitis Anxiety state 10/06/2006 Overview (05/18/2024): no counseling at present, takes wellbutrin for depression Tobacco use disorder 10/06/2006 Encounters Date Type Department Care Team Description 07/20/2024 Telephone [facility] [address] [place] [phone] Chelo Gama DO provider call back 06/21/2024 2:15 PM EST Office Visit [facility] - [facility] [address] [place] [phone] Fortunato Mckeon PA Transaminitis (Primary Dx); Mild intermittent asthma without complication; Tobacco use disorder; Recurrent HSV (herpes simplex virus) 05/23/2024 Telephone [facility] Medicine - [facility] [address] [place] [phone] Lanette CheloDO Medication Problem from Last 3 Months Immunizations Name Administration Dates Next Due Hepatitis B (Drfnsfe-U-Noauq , Recombivax HB-Adult) 19yo and older 11/01/2016 MMR, measles mumps and rubel la Live (Priorix; M-M-R II) 12mo and older 11/01/2016 PPD Test 11/01/2016 Tdap Tetanus diptheria acell ular pertussis (Boostrix; Adacel) 7yo and older 03/10/2012 Surgical History Surgery Date Site/Laterality Comments SECTION times 3 PROCEDURE: [place] DELIVERY ONLY BREAST BIOPSY 01/30/2019 Left PROCEDURE: BX BREAST; PERC NEEDLE CORE W/IMAG GUID; COMMENT: fibroadenoma CARPAL TUNNEL RELEASE 07/15/2022 Right PROCEDURE: HISTORICAL CARPAL TUNNEL REL; COMMENT: Dr. Cartagena CARPAL TUNNEL RELEASE 2018 Left PROCEDURE: HISTORICAL CARPAL TUNNEL REL Medical History Medical History Date Comments Tobacco use disorder DX:Tobacco use disorder Adhesive capsulitis of shoulder 2006 DX:Adhesive capsulitis of shoulder; COMMENT: Bursitis Asthma 11/05/2013 DX:Asthma Violation of narcotic use agreement 11/06/2015 DX:Violation of narcotic use agreement Recurrent HSV (herpes simplex virus) DX:Recurrent HSV (herpes simplex virus); COMMENT: on leg, positive viral culture Anxiety state 10/06/2006 DX:Anxiety state ; COMMENT: no counseling at present, takes wellbutrin for depression Bipolar affective disorder (CMS/HCC) 12/02/2017 DX:Bipolar affective disorder (HCC) Chronic tension headaches 12/28/2011 DX:Chr onic tension headaches Family history of breast can cer in female 07/14/2017 DX:Family history of breast cancer in female Fibromyalgia 12/02/2017 DX:Fibromyalgia LGSIL on Pap smear of cervix 11/11/2011 DX: LGSIL on Pap smear of cervix; COMMENT: History: PAP 09/10/2011: ASCUS with High Risk HPV DNA detected. Colposcopy 11/11/2011: patient ; mild acetowhite epithelium seen with no abnormal vessels appreciated; biopsy not taken. PAP : NIL PAP 01/21/2014: ASCUS, +HPV PAP 06/18/2015: LSIL, few cells raise the possibility of moderate dysplasia; +HPV Colposcopy 07/10/2015 - * Other disorders of bone and cartilage(733.99) 08/08/2014 DX:Other disorders of bone a nd cartilage(733.99); COMMENT: MRI 07/2014 Overweight (BMI 25.0-29.9) 07/19/2018 DX:Ov erweight (BMI 25.0-29.9) Migraine headache 10/09/2018 DX:Migraine he adache; COMMENT: Follows with neurology Obesity (BMI 30-39.9) 12/06/2018 DX:Obesity (BMI 30-39.9) Prediabetes 12/07/2018 DX:Prediabetes Cervical disc disorder at C4 -C5 level with radiculopathy 12/11/2018 DX:Cervical disc disorder at C4-C5 level with radiculopathy; COMMENT: S/p MRI 12/2018 with compression of anterior spinal cord and mild stenosis. Referred to neurosurgery. Lumbar stenosis 12/11/2018 DX:Lumbar stenos is; COMMENT: With left L4 nerve root compression. S/p MRI 12/2018 referred to neurosurgery Family History Medical History Relation Name Comments Hyperlipidemia Father Breast cancer Maternal Grandmother Breast cancer Mother early menopaus e Depression Mother Depression Hyperlipidemia Mother Ovarian cancer Mother Colon cancer Neg Hx Prostate cancer Neg Hx Uterine cancer Neg Hx Relation Name Status Comments Brother Alive 2 Healthy x 1 m ental retardation Daughter Alive 4 healthy Father Alive basal cell canc er Maternal Grandfather Alive healthy Maternal Grandmother Alive breast cancer Mother Alive Cancer ovarian - currently Paternal Grandfather esophag eal cancer Paternal Grandmother Alive heathy x skin cancer Sister Alive 3 Healthy Son Alive 1 club feet; re tinal abnormalities Social History Tobacco Use Types Packs/Day Years Used Date Smoking Tobacco: Every Day Cigarettes 1 32.1 Started: 07/04/1992 Smokeless Tobacco: Never Tobacco Cessation:Ready to Q uit: Not Asked; Counseling Given: Not Answered Alcohol Use Standard Drinks/Week Comments No 0 (1 standard drink = 0.6 oz pur e alcohol) Comments No Sex and Gender Information Value Date Recorded Sex Assigned at Not on file Legal Sex Female 1:13 PM EST Gender Identity Not on file Sexual Orientation Not on file Obstetrics History Last Filed Vital Signs Vital Sign Reading Time Taken Comments Blood Pressure 130/82 06/21/2024 3:02 PM EST Pulse 103 06/21/2024 2:15 PM EST Temperature - - Respiratory Rate - - Oxygen Saturation - - Inhaled Oxygen Concentration - - Weight 83 kg (183 lb) 06/21/2024 2:15 PM EST Height 165.1 cm (5' 5 ) 06/21/2024 2:15 PM EST Body Mass Index 30.45 06/21/2024 2:15 PM EST Plan of Treatment Upcoming Encounters Date Type Department Care Team (Late st Contact Info) Description 12/20/2024 2:30 PM EDT Office Visit [facility] - [address] [place] [phone] Fortunato Mckeon PA [address] [place] [address] Health Maintenance Due Date Last Done Comments COVID-19 Vaccine (#1) 1985 Hepatitis A Vaccines (1 of 2 - Risk 2-dose series) 1999 Pneumococcal Vaccine: Pediatrics (0 to 5 Years) and At-Risk Patients (6 to 64 Years) (1 of 2 - PCV) 1999 Hepatitis B Vaccines (2 of 3 - 19+ 3-dose series) 11/29/2016 11/01/2016 DTaP,Tdap,and Td Vaccines (2 - Td or Tdap) 03/10/2022 03/10/2012 Depression Screening 06/12/2022 HIV Screening 06/12/2022 Social Influencers of Health Screening 06/12/2022 Cholesterol Screening (Lipid Panel) 12/07/2023 12/06/2018 Influenza Vaccine (#1) 2024 Breast Cancer Screening 01/11/2025 01/12/20 23, 01/08/2022, 01/06/2021, Additional history exists Cervical Cancer Screening: HPV 10/13/2025 10/13/2020 MMR Vaccines Aged Out 11/01/2016 No longer eligi ble based on patient's age to complete this topic Hepatitis C Screening Completed 01/07/2021 HIB Vaccines Aged Out No longer eligi ble based on patient's age to complete this topic HPV Vaccines Aged Out No longer eligi ble based on patient's age to complete this topic IPV Vaccines Aged Out No longer eligi ble based on patient's age to complete this topic Meningococcal ACWY Vaccine Aged Out N o longer eligible based on patient's age to complete this topic Meningococcal B Vacine Aged Out No lo nger eligible based on patient's age to complete this topic RSV Immunization Patients Under 20 months Aged Out No longer eligible based on patient's age to complete this topic Varicella Vaccines Aged Out No longer eligible based on patient's age to complete this topic Procedures Procedure Name Priority Date/Time Associated Diagnosis Comments EXTERNAL DIABETIC RETINA EYE EXAM 08/09/2024 SCREENING MAMMOGRAPHY BI 2-VIEW BREAST INC CAD Routine 01/11/2023 11:44 AM EDT Encounter for screening mammogram for malignant neoplasm of breast HEPATITIS C SCREENING Routine 01/07/2021 HPV Routine 10/13/2020 LIPID PANEL Routine 12/06/2018 from Last 3 Months or Most Recently Relevant to Health Maintenance Results * External Diabetic Retina Eye Exam Report (08/09/2024) Anatomical Region Laterality Modality Ultrasound us Provider [facility] US PROCEDURES Final Result * SCREENING MAMMOGRAPHY BI 2-VIEW BREAST INC CAD (01/11/2023 11:44 AM EDT) Anatomical Region Laterality Modality Radiographic Xiomy ging 01/08/2022 1:16 PM EDT Narrative 01/11/2023 5:17 PM EDT This is a summary report. The complete report is available in the patient's medical record. If you cannot access the medical record, please contact the sending organization for a detailed fax or copy. Exam: Screening mammogram Findings: Digital bilateral full-field screening mammography is performed with tomosynthesis and interpreted with the aid of computer-aided detection. ??Comparison is made with 01/08/2022 and as far back as 12/27/2018. ??History of a biopsy-proven fibroadenoma in the left breast 01/30/2019. Breast parenchyma is composed of scattered fibroglandular densities. ??Stable subcentimeter nodule with an associated biopsy marker in the upper outer left breast. No new suspicious mass, architectural distortion, or suspicious calcifications. Impression: No mammographic evidence of malignancy. BI-RADS 2-benign Procedure Note Andreea Renner MD - 08/08/2023 This is a summary report. The complete report is available in thepatient's medical record. If you cannot access the medical record, pleasecontact the sending organization for a detailed fax or copy. Exam: Screening mammogram Findings: Digital bilateral full-field screening mammography is performedwith tomosynthesis and interpreted with the aid of computer-aideddetection. Comparison is made with 01/08/2022 and as far back as 12/27/2018.History of a biopsy-proven fibroadenoma in the left breast 01/30/2019. Breast parenchyma is composed of scattered fibroglandular densities.Stable subcentimeter nodule with an associated biopsy marker in the upperouter left breast. No new suspicious mass, architectural distortion, orsuspicious calcifications. Impression: No mammographic evidence of malignancy. BI-RADS 2-benign Result [facility] Mickey Robert MD IMG XR PROCEDURES Final Result * Hepatitis C Screening (01/07/2021) Pathologist [facility] Hepatitis C Screening abstracted Result [facility] Provider HEALTH MAINTENANCE Final Result * Cervical Cancer Screening: HPV (10/13/2020) [facility] Cervical Cancer Screening: HPV abstracted, negative [facility] Provider HEALTH MAINTENANCE Final Result * (ABNORMAL) Lipid panel (12/06/2018) [facility] LDL/HDL Ratio 4 0 - 4 Triglycerides 185(A) 0 - 150 mg/dL Cholesterol 155 0 - 200 mg/dL HDL 44 >=40 mg/dL LDL Cholesterol 74 0 - 100 mg/dL Blood Venous blood specimen / Unknown Result [facility] Provider LAB BLOOD ORDERABLES Emilie l Result from Last 3 Months or Most Recently Relevant to Health Maintenance Insurance [facility] Care Teams Saw Maker Relationship Specialty Start Date End Date Chelo Gama DO [address] [place] [address] PCP - General 04/27/24
== END 2024-08-16 13:29 | disposition home or self-care (01) ==
PROVIDERS: PCP Internal Medicine; Visit Provider Registered Nurse Emergency
DX: M47.816 Spondylosis without myelopathy or radiculopathy, lumbar region (principal); S73.191A Other sprain of right hip, initial encounter; M25.561 Pain in right knee; M54.9 Dorsalgia, unspecified
CPT/HCPCS: 99213; G2211

== ENCOUNTER → 2024-08-16 13:07 | Outpatient (BNVA) | payer OTHER, SELFPAY | PROVIDERS: PCP Internal Medicine; Visit Provider Anesthesiology | DX: M47.816 Spondylosis without myelopathy or radiculopathy, lumbar region (principal); S73.191A Other sprain of right hip, initial encounter; M25.561 Pain in right knee; M54.9 Dorsalgia, unspecified; Z87.891 Personal history of nicotine dependence | CPT/HCPCS: 99212 ==

== ENCOUNTER 2024-09-05 12:56 | Outpatient (AMB) | payer OTHER, SELFPAY ==
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
[2024-09-05 13:01] VITALS: BP 119/82; PULSE 109; RESP 16; O2SAT 95; BMI 31.1
--- OUTSIDE RECORDS SUMMARY | 2024-09-05 15:15 | XMS_ITS | Clinical Summary ---
Author Organization [place] [id number] [facility] Address [address] [place] [id number] Phone Care Team Providers Care Radio Despatcher Name Role Phone Laureen Gamaa Primary Care Provider [phone] Allergies Active Allergy Reactions Criticality Noted Date [...] tablet 1 06/21/20 24 025 Active fluticasone propion-salmeter oL (ADVAIR DISKUS) 100-50 mcg/dose diskus inhaler Inhale 1 puff by mouth 2 (two) times a day. Rinse mouth with water after use to reduce aftertaste and incidence of candidiasis. Do not swallow. 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 She is very active, has to [...] lumbar MRI images from 2019 done at [facility] on the computer in detail, at that [...] Team Description 07/20/2024 [facility] [address] [place] [id number] Chelo Gama DO provider call back 06/21/2024 2:15 PM EST Office Visit Building Drafting Officer - [facility] [address] [place] [id number] Fortunato Mckeon PA Transaminitis (Primary Dx); Mild intermittent asthma without complication; Tobacco use disorder; Recurrent HSV (herpes simplex virus) from Last 3 Months Immunizations Name Administration Dates Next Due Hepatitis B (Avqakle-U-Juogc , Recombivax HB-Adult) 19yo and older 11/01/2016 MMR, measles mumps and rubel la Live (Priorix; M-M-R II) 12mo and older 11/01/2016 PPD Test 11/01/2016 Tdap Tetanus diptheria acell ular pertussis (Boostrix; Adacel) 7yo and older 03/10/2012 Surgical History Surgery Date Site/Laterality Comments SECTION times 3 PROCEDURE: [place] DELIVERY ONLY BREAST BIOPSY 01/30/2019 Left PROCEDURE: [...] Date Smoking Tobacco: Every Day Cigarettes 1 32.2 Started: 07/04/1992 Smokeless Tobacco: Never Tobacco Cessation:Ready [...] Description 12/20/2024 2:30 PM EDT Office Visit Internal Medicine - [facility] [address] [place] [phone] Fortunato Mckeon PA [address] [place] [address] Health Maintenance Due Date Last Done Comments [...] of breast HEPATITIS C SCREENING Routine 01/07/2021 HM HPV Routine 10/13/2020 LIPID PANEL Routine 12/06/2018 [...] No mammographic evidence of malignancy. BI-RADS 2-benign Mickey Robert MD IMG XR PROCEDURES Final Result * Hepatitis C Screening (01/07/2021) Hepatitis C Screening abstracted Result [facility] Historical Provider HEALTH MAINTENANCE Final Result * Cervical Cancer Screening: HPV (10/13/2020) Pathologist [facility] Cervical Cancer Screening: HPV abstracted, negative Historical Provider HEALTH MAINTENANCE Final Result * (ABNORMAL) Lipid panel (12/06/2018) LDL/HDL Ratio 4 0 - 4 Triglycerides 185(A) 0 - 150 mg/dL Cholesterol 155 0 - 200 mg/dL HDL 44 >=40 mg/dL LDL Cholesterol 74 0 - 100 mg/dL Blood Venous blood specimen / Unknown Result [facility] Historical Provider LAB BLOOD ORDERABLES Emilie l Result from Last 3 Months or Most Recently Relevant to Health Maintenance Insurance [facility] Care Teams Radio Despatcher Relationship Specialty Start Date End Date Chelo Gama DO [address] [place] [place] [address] PCP - General 04/27/24
--- OUTSIDE RECORDS SUMMARY | 2024-09-05 15:15 | XMS_ITS | Clinical Summary ---
Author Organization [facility] Address [address] [place] [id number] Care Team Providers Care Auto Servicer Name Role Phone Meghan Macdonald MD Primary Care Provider [phone] Allergies Active Allergy Reactions Criticality Noted Date [...] age to complete this topic Care Teams Auto Servicer Relationship Specialty Start Date End Date Meghan Macdonald MD PCP - General Internal Medicine 01/03/19
== END 2024-09-05 13:10 | disposition home or self-care (01) ==
PROVIDERS: PCP Internal Medicine; Visit Provider Anesthesiology
DX: M47.816 Spondylosis without myelopathy or radiculopathy, lumbar region (principal); M54.9 Dorsalgia, unspecified
CPT/HCPCS: 99213

== ENCOUNTER → 2024-09-05 12:56 | Outpatient (BNVA) | payer OTHER, SELFPAY | PROVIDERS: PCP Internal Medicine; Visit Provider Anesthesiology | DX: M47.816 Spondylosis without myelopathy or radiculopathy, lumbar region (principal); M25.561 Pain in right knee; Z45.42 Encounter for adjustment and management of neurostimulator | CPT/HCPCS: 99212 ==

== ENCOUNTER 2024-12-07 08:32 | Outpatient (AMB) | payer OTHER, SELFPAY ==
--- NOTE | 2024-12-07 08:37 | MHC.OFFVIS ---
Vital Signs 12/07/24 08:38 Height 5 ft 5 in Weight 186 lb BMI 30.9 BP 116/75 Blood Pressure Location Lt brachial Position Sitting Respiration 16 Pulse 91 Pulse Source Pulse Oximeter Pulse Oximetry (%) 96 Oxygen Delivery Method Room Air Intake Visit Reasons: Discuss Celebrex Medication Mining Consultant Required: No Accompanied by: Self / Same As Patient Allergies amoxicillin Allergy (Unknown, Verified 12/07/24 08:41) Unknown symbalta Allergy (Mild, Uncoded 12/07/24 08:42) hives HPI Comments Details: The patient is a 44-year-old female presenting with worsening neck and back pain. She has a chronic history of cervical spondylosis and low back pain, which have now become recurrent and severely debilitating. Her neck pain has persisted for three days, a deviation from its usual infrequent appearance. She attributes recent exacerbating factors to potential improper sleeping arrangements and new mattress usage. She has previously identified cervical spine involvement at levels C3-C5 but lacks further current specifics. Her lower back and hip pains have notably intensified recently, impacting her daily function and leading to concerns about physical stability and mobility. These issues arise amidst a medical backdrop that includes surgery recommendations to avoid physically intensive activities, until more definitive treatment pathways are established. Additionally, a history of Lyme disease with past inadequate treatment potentially contributes to her complex pain presentation. The patient suffers from prediabetes, now aggravated to diabetes, and fatty liver disease, compounding her daily function and chronic pain management challenges. - Onset and Timing: Neck pain worse for three consecutive days, with chronic lower back pain recent exacerbation. - Quality and Character: Neck pain with stiffness and limited motion. Lower back pain sharp and disabling. - Primary Location: Cervical spine and lumbar region with associated hip pain. - Aggravating Factors: Possible improper pillow and sleeping on the new mattress. - Alleviating Factors: None specified. - Interference: Walking, standing up, and general mobility. - Affect: Pain causes significant stress and frustration, affecting mood. - Analgesia: Currently taking Celebrex. Pain has been escalating, particularly in the neck and lower back. - Adverse Effects: None specified from Celebrex, but concern over cardiovascular risks, especially with diabetes. - Activities of Daily Living: Severely affected, requiring support to stand and fear of falling. - Aberrant Drug-Related Behaviors: None reported. [facility] Medical History Diabetes Social History (Updated 12/07/24 @ 08:47 by Latonya Galindo MA) Alcohol intake: current Patient Tobacco Use Status: Current everyday Tobacco user Review of Systems Const Details: - Musculoskeletal: Reports severe neck and lower back pain affecting daily activities. Denies new injuries. - Neurological: Reports neck pain with limited motion - Endocrine: Recent diagnosis of diabetes. - Gastrointestinal: History of fatty liver disease. - Integumentary: Denies rashes but has history of allergic reactions to Cymbalta. Physical Exam Vital Signs: Last Vital Signs Pulse 91 12/07/24 08:38 Resp 16 12/07/24 08:38 BP 116/75 12/07/24 08:38 Pulse Ox 96 12/07/24 08:38 Oxygen Delivery Method Room Air 12/07/24 08:38 BMI result Body Mass Index 30.9 General: awake, alert, oriented. Answers questions appropriately. Fully engaged in examination. Skin: warm, dry, intact HEENT: Normocephalic. Hearing intact. Cardiac: External chest normal in appearance. Respiratory: No cough, audible wheezing or stridor. Abdomen: without gross distension. MS: No obvious swelling or deformities. Tenderness over midline cervical vertebrae and cervical paraspinal muscles. Limited cervical range of motion. Neurological: Oriented to person, place, time and situation. Thought process intact. No gait abnormalities appreciated. Psychiatric: Appropriate mood and affect. Good judgment and insight. Results Reviewed Results Reviewed: Per referral note from [facility]: Assessment & Plan Assessment & Plan (1) Cervical spondylolysis: Code(s): M43.02 - Spondylolysis, cervical region Category: Medical (2) Lumbar spondylosis: Code(s): M47.816 - Spondylosis without myelopathy or radiculopathy, lumbar region Category: Medical (3) Myofascial muscle pain: Code(s): M79.18 - Myalgia, other site Category: Medical (4) Intractable back pain: Code(s): M54.9 - Dorsalgia, unspecified Category: Medical Plan A cervical spine x-ray has been ordered to investigate the patient's worsened neck pain and potential cervical spondylosis changes. Physical therapy will be initiated, within the [facility] facility per patient request, to address her chronic neck and lower back pain. The patient's current Celebrex prescription will be maintained to alleviate pain in the interim, considering its cardiovascular risks in the context of her diabetes diagnosis. Follow-up care will include reevaluating her pain management strategy after the initial investigations and consults. I discussed with the patient the worsened state of her cervical and lumbar spine pains and the necessary diagnostic steps including a cervical x-ray for assessing current spinal changes. We reviewed Celebrex continuation, acknowledging its benefits and cardiovascular risks, which are especially pertinent given her diabetes diagnosis. I emphasized the utility of physical therapy to manage and possibly improve her condition in a coordinated care approach. Consent was obtained to proceed with these investigations and initial therapies, aligning with her treatment goals. Return precautions and potential outcome expectations from these interventions were thoroughly discussed. Patient was informed and verbally consented to the use of an ambient scribe for clinic note documentation during this visit. Orders: Orders PT Evaluation and Treatment Today M43.02 - Spondylolysis, cervical region, M47.816 - Spondylosis without myelopathy or radiculopathy, lumbar region, M79.18 - Myalgia, other site XR cervical spine w flex/ext Today M43.02 - Spondylolysis, cervical region Medications: Changed From celecoxib PO DAILY To celecoxib 200 mg PO DAILY 30 caps 3RF Coding Level of Care Code Est Pt Level 3 (99859) Complex EM visit Add On G2211 Diagnoses Cervical spondylolysis M43.02 Lumbar spondylosis M47.816 Myofascial muscle pain M79.18 Intractable back pain M54.9
[2024-12-07 08:38] VITALS: BP 116/75; PULSE 91; RESP 16; O2SAT 96; BMI 30.9
--- OUTSIDE RECORDS SUMMARY | 2024-12-07 08:43 | XMS_ITS ---
Author Name [facility] Organization Unknown Encounters Encounter Type Encounter Reason Primary Diagnosis Location Date Ambulatory [facility] 04/13/2024 Care Team Organization Name Specialty Phone Email Start Date End Da [facility] 2024
== END 2024-12-07 09:14 | disposition home or self-care (01) ==
LOC: HO.PMC 08:33
PROVIDERS: PCP Internal Medicine; Visit Provider Registered Nurse Emergency
DX: M43.02 Spondylolysis, cervical region (principal); M47.816 Spondylosis without myelopathy or radiculopathy, lumbar region; M79.18 Myalgia, other site; M54.9 Dorsalgia, unspecified
CPT/HCPCS: 99213; G2211

== ENCOUNTER → 2024-12-07 08:32 | Outpatient (BNVA) | payer OTHER, SELFPAY | PROVIDERS: PCP Internal Medicine; Visit Provider Registered Nurse Emergency | DX: M43.02 Spondylolysis, cervical region (principal); M47.816 Spondylosis without myelopathy or radiculopathy, lumbar region; M79.18 Myalgia, other site; M54.9 Dorsalgia, unspecified | CPT/HCPCS: 99212 ==

== ENCOUNTER 2025-05-09 09:04 | Outpatient (AMB) | payer OTHER, SELFPAY ==
--- OUTSIDE RECORDS SUMMARY | 2025-05-07 09:30 | XMS_ITS | Encounter Summary ---
Author Organization [facility] Address [address] [place] [address] Care Team Providers Care Metal Template Maker Name Role Phone Chelo Gama DO Primary Care Provider [phone] Reason for Referral * Imaging (Routine) - Pending Review Specialty Diagnoses / Procedures Referred By Obi landa Referred To Contact Radiology Diagnoses Right flank pain Procedures US Retroperitoneal Limited Fortunato Mckeon PA [address] [place] [address] Phone: tel: fax: [facility] Referral ID Status Reason Start Date Expiration Date V isits Requested Visits Authorized [id number] Pending Review 05/07/2025 05/07/2026 1 1 * Consultation (Routine) - Closed Specialty Diagnoses / Procedures Referred By Obi landa Referred To Contact Urology Diagnoses Recurrent UTI Fortunato Mckeon PA [address] [place] [address] Phone: tel: fax: [facility] [address] [place] [address] Phone: tel: fax: Referral ID Status Reason Start Date Expiration Date V isits Requested Visits Authorized [id number] Closed Specialty Services Required 05/07/2025 05/07/2026 1 1 Reason for Visit * Reason Comments Diabetes Mellitus Encounter Details Date Type Department Care Team (Late st Contact Info) Description 05/07/2025 9:30 AM EST Office Visit Internal Medicine - [facility] [address] [place] [address] Fortunato Mckeon PA [address] [place] [address] Type 2 diabetes mellitus without complication, without long-term current use of insulin (CMS/HCC V24, CMS/HCC V28) (Primary Dx); Mild intermittent asthma without complication; Recurrent UTI; Right flank pain; Overweight; Recurrent HSV (herpes simplex virus) Social History Tobacco Use Types Packs/Day Years Used Date Smoking Tobacco: Every Day Cigarettes 1 32.8 Started: 07/04/1992 Smokeless Tobacco: Never Alcohol Use Standard Drinks/Week Comments No 0 (1 standard drink = 0.6 oz pur e alcohol) Housing Instability Answer Date Recorde d Are you worried that in the next 2 months you may not have stable housing? No 12/15/2024 Food Access & Nutrition Answer Date Rec orded Do you have access to a vari ety of food including fruits and vegetables? Yes 12/15/2024 Access to Healthcare Answer Date Record ed Within the last 3 months, ho w many times did you visit the emergency department for your medical care? 0 12/15/2024 Health Literacy Answer Date Recorded How often do you need to hav e someone help you when you read instructions, pamphlets, or other written material from your doctor or pharmacy? Never 12/15/2024 Caregiver: How often do you need to have someone help you when you read instructions, pamphlets, or other written material from your doctor or pharmacy? Not on file 12/15/2024 Financial Risk Answer Date Recorded How hard is it for you to pa y for the very basics like food, housing, medical care, and air conditioning / heating? Somewhat hard 12/15/2024 Transportation Answer Date Recorded Has the lack of transportati on kept you from meetings, work, or from getting things needed for daily living? No Has the lack of transportati on kept you from medical appointments or from getting medications? No 12/15/2024 Social Isolation Answer Date Recorded How often do you feel lonely or isolated from th ose around you? Never 12/15/2024 Food Risk Answer Date Recorded Within the past 12 months we worried whether our food would run out before we got money to buy more. Sometimes true 025 Within the past 12 months th e food we bought just didn't last and we didn't have money to get more. Sometimes true 12/15/2024 Dependent Care Answer Date Recorded Do you need help finding or paying for care for your loved ones. For example, child psychometrist or elderly care for an older adult? No 12/15/2024 Education Answer Date Recorded Do you think completing more education or training, like finishing a GED, going to college, or learning a trade, would be helpful for you? N/A 12/15/2024 Employment and Income Answer Date Recor ded During the last four weeks, have you been actively looking for work? Patient declined 12/15/2024 Living Situation Answer Date Recorded What is your living situation? Unrecognized valu e 12/15/2024 Comments No Sex and Gender Information Value Date Recorded Sex Assigned at Not on file Legal Sex Female 1:13 PM EST Gender Identity Not on file Sexual Orientation Not on file documented as of this encounter Last Filed Vital Signs Vital Sign Reading Time Taken Comments Blood Pressure 102/58 05/07/2025 9:24 AM EST Pulse 60 05/07/2025 9:24 AM EST Temperature - - Respiratory Rate 16 05/07/2025 9:24 AM EST Oxygen Saturation - - Inhaled Oxygen Concentration - - Weight 77.1 kg (170 lb) 05/07/2025 9:24 AM EST Height - - Body Mass Index 28.29 03/05/2025 8:32 AM EDT documented in this encounter Ordered Prescriptions Prescription Sig Dispense Quantity Refills Last Filled Start Date End Date tirzepatide (Mounjaro) 10 mg/0.5 mL injectionIndication s:Type 2 diabetes mellitus without complication, without long-term current use of insulin ([facility] V24, [facility] V28) Inject 0.5 mL (10 mg total) under the skin every 7 (seven) days. 2 mL 1 05/07/2025 6 ondansetron ODT (ZOFRAN-ODT) 4 mg disintegrating tablet Dissolve 1 tablet (4 mg total) on top of the tongue every 8 (eight) hours if needed for nausea or vomiting for up to 7 days. 20 tablet 05/07/2025 fluticasone propion-salmeteroL (ADVAIR DISKUS) 100-50 mcg/dose diskus inhaler Inhale 1 puff by mouth 2 (two) times a day. Rinse mouth with water after use to reduce aftertaste and incidence of candidiasis. Do not swallow. 3 each 1 05/07/2025 albuterol HFA (Ventolin HFA) 90 mcg/actuation inhalerIndications: Mild intermittent asthma without complication Inhale 2 puffs by mouth every 4 (four) hours if needed for wheezing. 6.7 g 2 05/07/2025 documented in this encounter Progress Notes * MAXWELL Brady - 05/07/2025 9:30 AM EST CHIEF COMPLAINT: Diabetes Mellitus IDENTIFIER: Mariann Boyer is a 44 y.o. old female. HPI: Mariann Boyer presents secondary to History of migraine, fibromyalgia, asthma, OG, bipolar affective disorder, DM2. Last seen 04/09/2025 for follow-up of DM2 and weight. Mounjaro was increased to 7.5 mg weekly and she is advised to return in a month. Lab Results Component Value Date HGBA1C 6.0 05/02/2025 HGBA1C 6.6 (H) 01/31/2025 HGBA1C 5.7 12/11/2020 Lab Results Component Value Date MICROALBUR 11.8 05/02/2025 LDLCALC 139 (H) 12/17/2024 CREATININE 0.77 05/02/2025 MICROALBCREA 6 05/02/2025 She also reports dysuria ongoing since December. She was treated with antibiotics on multiple occasionsfor concern of UTI. Last UA with culture 05/03/2025 revealed Klebsiella pneumoniae. She is currently on ciprofloxacin. She is experiencing flank pain, nausea but no fevers, chills, hematuria. Asthma: Albuterol as needed, Advair 100-50 mcg 1 puff twice daily. HSV: Valtrex 500 mg daily. ROS: See HPI for pertinent positives and detailed description. Cardiovascular: Denies palpitations, chest pain Respiratory: Denies SOB : See HPI PAST MEDICAL HISTORY: Patient Active Problem List Diagnosis Date Noted DM (diabetes mellitus), type 2 ([facility] V24, [facility] V28) 05/06/2025 Recurrent HSV (herpes simplex virus) 05/18/2024 Cervical spondylosis 10/21/2022 Right carpal tunnel syndrome 05/19/2022 NAFLD (nonalcoholic fatty liver disease) 12/19/2020 Transaminitis 12/12/2020 Impingement syndrome involving patellar fat pad 03/12/2020 Impingement syndrome, shoulder, right 03/12/2020 Tendinitis of right rotator cuff 03/12/2020 Closed nondisplaced fracture of greater tuberosity of right humerus 02/04/2020 Breast fibroadenoma, left 02/14/2019 Cervical disc disorder at C4-C5 level with radiculopathy 12/11/2018 Lumbar stenosis 12/11/2018 Prediabetes 12/07/2018 Obesity (BMI 30-39.9) 12/06/2018 Migraine headache 10/09/2018 Bipolar affective disorder ([facility] V24, [facility] V28) 12/02/2017 Fibromyalgia 12/02/2017 DDD (degenerative disc disease), lumbar 04/20/2016 Known medical problems 08/08/2014 Asthma 11/05/2013 Chronic tension headaches 12/28/2011 LGSIL on Pap smear of cervix 11/11/2011 Adhesive capsulitis of shoulder 10/06/2006 Anxiety state 10/06/2006 Tobacco use disorder 10/06/2006 Surgical History[1] SOCIAL HISTORY: Social History Tobacco Use Smoking status: Every Day Current packs/day: 1.00 Average packs/day: 1 pack/day for 32.8 years (32.8 ttl pk-yrs) Types: Cigarettes Start date: 07/04/1992 Smokeless tobacco: Never Substance Use Topics Alcohol use: No FAMILY HISTORY: Family History[2] Family Status Relation Name Status MGM Alive breast cancer Mother Alive Cancer ovarian - currently Father Alive basal cell cancer Neg Hx (Not Specified) Brother Alive 2 Healthy x 1 mental retardation Sister Alive 3 Healthy Daughter Alive 4 healthy Son Alive 1 club feet; retinal abnormalities MGF Alive healthy PGM Alive heathy x skin cancer PGF esophageal cancer No partnership data on file MEDICATIONS DISCONTINUED/REORDERED: Medications Discontinued During This Encounter Medication Reason fluticasone propion-salmeteroL (ADVAIR DISKUS) 100-50 mcg/dose diskus inhaler Reorder albuterol HFA (Ventolin HFA) 90 mcg/actuation inhaler Reorder tirzepatide (Mounjaro) 7.5 mg/0.5 mL injection ACTIVE MEDICATIONS: Medications Taking[3] ALLERGIES: Current Allergies[4] PHYSICAL EXAM: Visit Vitals BP 102/58 Pulse 60 Resp 16 Wt 77.1 kg (170 lb) LMP 04/27/2025 BMI 28.29 kg/m?? OB Status Having periods Smoking Status Every Day BSA 1.85 m?? The patient is overweight. Approaches towards weight loss are encouraged per recommendations below: -Reviewed reduction and fatty/greasy/fast foods, increased aerobic exercise, and eating 4-5 small meals consistently throughout the day General: Alert, calm, no acute distress. HEENT: Normocephalic/atraumatic, EOMI. Skin: Warm, moist. Cardiovascular: Regular rate and rhythm. No murmurs, rubs, or gallops Lungs: CTA, no crackles, wheezes or rhonchi. Neuro: COA x3. Psych: mood and affect appropriate for situation IMAGING: NA IMPRESSION: 1. Type 2 diabetes mellitus without complication, without long-term current use of insulin ([facility], [facility] V28) 2. Mild intermittent asthma without complication 3. Recurrent UTI 4. Right flank pain 5. Overweight 6. Recurrent HSV (herpes simplex virus) PLAN: DM2/overweight: Diabetes is well-controlled and weight is improving with Mounjaro. Will increase to10 mg weekly. UTI: Continue treatment with ciprofloxacin. With her flank pain, nausea also concern for nephrolithiasis, ultrasound ordered. I have also referred her to urology. Increase fluid intake. Provided withZofran for nausea. Asthma: Continue current regimen. HSV: Continue current regimen. We have discussed the above medication(s) at length. I have explained the indications as well as common side effects and risks. The patient understands and accepts these risks and wishes to proceed with the pharmacological treatment. All of the patient's questions were answered at this time. Pt voices understanding and is in agreement with the above plan. Symptoms and/or concerns that should warrant emergency evaluation/treatment have been discussed. Follow up evaluation will be based upon the plan as stated. If any questions should arise in the interim/future please contact the officefor assistance. Medication and lab orders: Orders Placed This Encounter Procedures US Retroperitoneal Limited CBC and differential Lipid panel with reflex to direct LDL Ambulatory referral to Urology Other orders: AMB REFERRAL TO UROLOGY US RETROPERITONEAL LIMITED I have maintained a long-term, longitudinal relationship with this patient leading to the extensivework up, and management associated with the medical care of this patient. MAXWELL Brady on 05/07/2025 at 9:53 AM EST [1] Past Surgical History: Procedure Laterality Date BREAST BIOPSY Left 01/30/2019 PROCEDURE: BX BREAST; PERC NEEDLE CORE W/IMAG GUID; COMMENT: fibroadenoma CARPAL TUNNEL RELEASE Right 07/15/2022 PROCEDURE: HISTORICAL CARPAL TUNNEL REL; COMMENT: Dr. Cartagena CARPAL TUNNEL RELEASE Left 2018 PROCEDURE: HISTORICAL CARPAL TUNNEL REL SECTION times 3 PROCEDURE: MO DELIVERY ONLY CHOLECYSTECTOMY 04/26 wing [2] Family History Problem Relation Name Age of Onset Breast cancer Maternal Grandmother Hyperlipidemia Mother Depression Mother Depression Breast cancer Mother 42.00 early menopause Ovarian cancer Mother 65.00 Hyperlipidemia Father Uterine cancer Neg Hx Colon cancer Neg Hx Prostate cancer Neg Hx [3] Outpatient Medications Marked as Taking for the 05/07/25 encounter (Office Visit) with MAXWELL Romo Medication Sig Dispense Refill albuterol HFA (Ventolin HFA) 90 mcg/actuation inhaler Inhale 2 puffs by mouth every 4 (four) hours if needed for wheezing. 6.7 g 2 ciprofloxacin (CIPRO) 500 mg tablet Take 1 tablet (500 mg total) by mouth 2 (two) times a day for 7days. 14 each 0 cyclobenzaprine (FLEXERIL) 5 mg tablet TAKE ONE TABLET BY MOUTH THREE TIMES A DAY NEEDED FOR MUSCLE SPASM 90 tablet 1 fluticasone propion-salmeteroL (ADVAIR DISKUS) 100-50 mcg/dose diskus inhaler Inhale 1 puff by mouth 2 (two) times a day. Rinse mouth with water after use to reduce aftertaste and incidence of candidiasis. Do not swallow. 3 each 1 freestyle 28 gauge lancets Use to take sugar daily 100 each 1 FreeStyle Lite Meter monitoring kit 1 each 1 (one) time each day. Use to test blood sugar daily 1 each 0 glucose blood test strip Use to take sugar daily 100 each 1 ibuprofen (ADVIL,MOTRIN) 600 mg tablet Take 1 tablet (600 mg total) by mouth every 6 (six) hours ifneeded for mild pain or moderate pain. for pain 120 tablet 1 multivitamin (MULTIPLE VITAMINS ORAL) Take by mouth. omeprazole (PriLOSEC) [address] capsule Take 1 capsule (40 mg total) by mouth 1 (one) time each day.Do not crush or chew. 90 each 1 valACYclovir (VALTREX) 500 mg tablet TAKE ONE TABLET BY MOUTH EVERY DAY 90 tablet 1 [DISCONTINUED] albuterol HFA (Ventolin HFA) 90 mcg/actuation inhaler Inhale 2 puffs by mouth every 4 (four) hours if needed for wheezing. 6.7 g 2 [DISCONTINUED] fluticasone propion-salmeteroL (ADVAIR DISKUS) 100-50 mcg/dose diskus inhaler Inhale1 puff by mouth 2 (two) times a day. Rinse mouth with water after use to reduce aftertaste and incidence of candidiasis. Do not swallow. 3 each 1 [DISCONTINUED] tirzepatide (Mounjaro) 7.5 mg/0.5 mL injection Inject 0.5 mL (7.5 mg total) under the skin every 7 (seven) days. 2 mL 1 [4] Allergies Allergen Reactions Amoxicillin Hives Other Reaction(s): Hives/Urticaria Patient reports yeast infection Patient reports yeast infection Duloxetine Hcl Rash, joint pain Penicillin V Sumatriptan Swelling Verapamil Swelling Feet swelling Feet swelling documented in this encounter Plan of Treatment Upcoming Encounters Date Type Department Care Team (Late st Contact Info) Description 05/10/2025 9:45 AM EST Appointment Ultrasound - [facility] [address] [place] [address] 07/17/2025 10:10 AM EST Consult Gastroenterology - [address] [phone] Francesca Conner PA [address] [address] 08/13/2025 9:00 AM EST Office Visit Internal Medicine - [facility] [address] [facility] [place] [address] Fortunato Mckeon PA [address] [facility] [place] [address] Scheduled Orders Name Type Priority Associated Diagnoses Orde r Schedule US Retroperitoneal Limited Imaging Routine Right flank pain Expected: 05/07/2025, Expires: 05/07/2026 CBC and differential Lab Routine Right flank pain 1 Occurrences starting 05/07/2025 until 05/07/2026 Lipid panel with reflex to direct LDL Lab Routine Type 2 diabetes mellitus without complication, without long-term current use of insulin ([facility] V24, [facility] V28) 1 Occurrences starting 05/07/2025 until 05/07/2026 Scheduled Referrals Name Type Priority Associated Diagnoses Order Schedule Ambulatory referral to Urology Outpatient Referral Routine Recurrent UTI 1 Occurrences starting 05/07/2025 until 05/07/2026 documented as of this encounter Visit Diagnoses Diagnosis Type 2 diabetes mellitus without complication, without long-term current use of insulin ([facility] V24, [facility] V28)- Primary Mild intermittent asthma without complication Recurrent UTI Urinary tract infection, site not specified Right flank pain Abdominal pain, unspecified site Overweight Recurrent HSV (herpes simplex virus) Herpes simplex without mention of complication documented in this encounter Discontinued Medications Medication Sig Discontinue Reason Start Date End Da te fluticasone propion-salmeteroL (ADVAIR DISKUS) 100-50 mcg/dose diskus inhaler Inhale 1 puff by mouth 2 (two) times a day. Rinse mouth with water after use to reduce aftertaste and incidence of candidiasis. Do not swallow. Reorder 12/20/2024 05/07/2025 albuterol HFA (Ventolin HFA) 90 mcg/actuation inhalerIndications:Mild intermittent asthma without complication Inhale 2 puffs by mouth every 4 (four) hours if needed for wheezing. Reorder 12/20/2024 05/07/2025 tirzepatide (Mounjaro) 7.5 mg/0.5 mL injectionIndications:Ty pe 2 diabetes mellitus without complication, without long-term current use of insulin ([facility] V24, [facility] V28) Inject 0.5 mL (7.5 mg total) under the skin every 7 (seven) days. 04/09/2025 05/07/2025 documented as of this encounter Additional Health Concerns Assessment Noted Time PHQ-9 Depression Total Score: 0 12/16/19 25 9:52 AM EDT documented as of this encounter Care Teams Metal Template Maker Relationship Specialty Start Date End Date Chelo Gama DO [address] [place] [address] PCP - General 04/27/24 documented as of this encounter
[2025-05-09 09:19] VITALS: BMI 28.0
--- NOTE | 2025-05-09 09:19 | A.OFFVIS_ITS ---
VS Expanded 05/09/25 09:19 05/14/25 12:32 Height 5 ft 5 in 5 ft 5 in Weight 167 lb 15.876 oz 168 lb BMI 28.0 28.0 Intake Visit Reasons: T2DM, Obesity Allergies amoxicillin Allergy (Unknown, Verified 12/07/24 08:41) Unknown symbalta Allergy (Mild, Uncoded 12/07/24 08:42) hives Nutrition Presentation Details: Pt presents for MNT for T2DM Pt's most recent a1c at 6.6 in January. Pt reports she is currently on Mounjaro 7.5mg/wk Pt reports working on reducing portions , trying to increase protein foods and fluids. Food frequency fruits: 0-1/d vex/wk dairy : 2-3 /d prot: 3-4 oz 2-3 x/d, not including fish hydration: water, , low sugar beverages physical activity :sedentary CPH-Vryqkda-Jh.Jeor Equation Height: 5 ft 5 in Weight: 168 lb Resting Metabolic Rate: 1415.67 Calculated Activity Level: Sedentary Calories Needed to Maintain Weight: 1698.80 Diagnosis Nutrition problem #1: altered nutrition labs As related to (etiology) #1: diagnosis As evidenced by (sign/symptom) #1: abnormal lab values [facility] Medical History Diabetes Social History (Updated 12/07/24 @ 08:47 by Latonya Galindo MA) Alcohol intake: current Patient Tobacco Use Status: Current everyday Tobacco user Assessment & Plan Assessment & Plan (1) T2DM (type 2 diabetes mellitus): Code(s): E11.9 - Type 2 diabetes mellitus without complications Category: Medical Plan: current wt: kg76 ( 05/28 ) est kcal needs as per MSJ: 1700 est protein needs as per 1 g/kg BW: 80 est fluid needs as per 30 ml/kg BW: 2300 Recommended fiber > 12 g /day and gradually increase up to 25-28 g /day or as tolerated Nutrition topics discussed : Reviewed (R), Pt verbalized understanding (V) , not applicable (N/A) R, : Healthy Plate Method Concept: R, : Carbohydrates: food sources of carbohydrates, relationship of carbohydrates to blood glucose, fatty liver GI health. Recommended total amount of carbohydrates per meals and snack. Differences between simple carbohydrates and complex carbohydrates R, : Lean protein foods including vegan , vegetarian sources of protein. Benefits of protein (including but not limited to healing, nutritional value , benefits in weight loss, glucose control R, V, N/A: Fats : Source of fats, benefits of fats. Difference between saturated and unsaturated fats. Saturated fats and its contribution to inflammation R, V, N/A: Fiber: food sources and role of fiber in the diet (including but not limited to its role as a prebiotic, benefits in constipation, role in IBS , role in glucose control and cholesterol level) R, Hydration: role of hydration and prevention of dehydration or over hydration. Foods and water content. R, V, N/A: Vitamins and Minerals in foods and supplements R, : Interpreting food labels, including serving size, macronutrients, vitamins, minerals, allergens, ingredient list , % daily value Patient Instructions: Work on having 3 balanced meals per day , reducing total carbohydrate to 45-60 g per meal or less and snacks 0-20 g of carbs or less Work on choosing lean, low-fat food options and complex carbohydrates Keep hydrated having water, low sugar beverages with meals and snacks Coding Level of Care Code Nutr Indiv Intake (34655) Diagnoses T2DM (type 2 diabetes mellitus) E11.9 Time Spent (min) 30
--- OUTSIDE RECORDS SUMMARY | 2025-05-09 09:51 | XMS_ITS | Encounter Summary ---
Author Organization [facility] [place] [address] Care Team Providers Care Material Clerk Name Role Phone LanetteChelo Primary Care Provider [phone] Encounter Details Date Type Department Care Team (Late st Contact Info) Description 05/03/2025 Results Follow-Up Internal Medicine - [facility] [address] [place] [address] Fortunato Mckeon PA [address] [place] [address] Social History Tobacco Use Types Packs/Day Years [...] Record ed Within the last 3 months, [place] many times did you visit the emergency [...] for your loved ones. For example, child study team director or elderly care for an older adult? [...] on file documented as of this encounter Ordered Prescriptions Prescription Sig Dispense Quantity Refills Last Filled Start Date End Date nitrofurantoin, macrocrystal-monoh ydrate, (MACROBID) 100 mg capsule Take 1 capsule (100 mg total) by mouth 2 (two) times a day for 5 days. 10 each 05/03/2025 documented in this encounter Plan of Treatment Upcoming Encounters Date Type Department Care Team (Late st Contact Info) Description 05/10/2025 9:45 AM EST Appointment Ultrasound - [facility] [address] [place] [address] 07/17/2025 10:10 AM EST Consult Gastroenterology - [address] [facility] [address] [place] [address] Francesca Conner PA [address] [address] 08/13/2025 9:00 AM EST [facility] [address] [place] [address] Fortunato Mckeon PA [address] [place] [address] documented as of this encounter Visit Diagnoses Diagnosis Dysuria- Primary documented in this encounter Additional Health Concerns Assessment Noted Time PHQ-9 Depression Total Score: 0 12/16/19 9:52 AM EDT documented as of this encounter Care Teams Material Clerk Relationship Specialty Start Date End Date Chelo Gama DO [address] [place] [address] PCP - General 04/27/24 documented as of this encounter
--- OUTSIDE RECORDS SUMMARY | 2025-05-09 09:51 | XMS_ITS | Clinical Summary ---
Author Organization [facility] Address [address] [place] [id number] Care Team Providers Care Administrative Support Specialist Name Role Phone Meghan Macdonald MD Primary Care Provider [phone] Allergies Active Allergy Reactions Criticality Noted Date [...] 100 01/06/2023 2:31 PM EDT Temperature 36.3 C (97.4 F) 01/06/2023 2:31 PM EDT Respiratory Rate - - Oxygen Saturation 96% [...] or Tdap) 03/10/2022 012 Influenza Vaccine (#1) 2025 RSV Ped < 20 months Aged Out No longe r eligible based on patient's age to complete this topic Care Teams Administrative Support Specialist Relationship Specialty Start Date End Date Meghan Macdonald MD PCP - General Internal Medicine 01/03/19
--- OUTSIDE RECORDS SUMMARY | 2025-05-09 09:51 | XMS_ITS | Clinical Summary ---
Author Organization [address] [facility] Building Address [address] [place] [phone] Phone Care Team Providers Care Coater Slate Name Role Phone Chelo Gama DO Primary Care Provider [phone] Allergies Active Allergy Reactions Criticality Noted Date Comments Amoxicillin Hives 04/28/2015 Other Reaction(s): Hives/Urticaria Patient reports yeast infection Patient reports yeast infection Duloxetine Hcl 12/06/2017 Rash, joint pain Penicillin V 02/04/2020 Sumatriptan Swelling 12/06/2018 Verapamil Swelling 12/14/2018 Feet swelling Feet swelling Medications multivitamin (MULTIPLE VITAMINS ORAL) Take by mouth. Active FreeStyle Lite Meter monitoring kit 1 each 1 (one) time each day. Use to test blood sugar daily 1 each 025 2025 Active glucose blood test strip Use to take sugar daily 100 each 1 025 2025 Active freestyle 28 gauge lancets Use to take sugar daily 100 each 1 025 2025 Active valACYclovir (VALTREX) 500 mg tablet TAKE ONE TABLET BY MOUTH EVERY DAY 90 tablet 1 Active ibuprofen (ADVIL,MOTRIN) 600 mg tablet Take 1 tablet (600 mg total) by mouth every 6 (six) hours if needed for mild pain or moderate pain. for pain 120 tablet 1 025 2025 Active nicotine polacrilex (COMMIT) 4 mg lozenge DISSOLVE ONE LOZENGE (4MG TOTAL) BY MOUTH/THROAT EVERY 2 HOURS NEEDED FOR SMOKING CESSATION 288 lozenge 1 Active omeprazole (PriLOSEC) [address] capsule Take 1 capsule (40 mg total) by mouth 1 (one) time each day. Do not crush or chew. 90 each 1 025 2025 Active cyclobenzaprine (FLEXERIL) 5 mg tablet TAKE ONE TABLET BY MOUTH THREE TIMES A DAY NEEDED FOR MUSCLE SPASM 90 tablet 1 Active ciprofloxacin (CIPRO) 500 mg tablet Take 1 tablet (500 mg total) by mouth 2 (two) times a day for 7 days. 14 each 025 2024 Active albuterol HFA (Ventolin HFA) 90 mcg/actuation inhalerIndication s:Mild intermittent asthma without complication Inhale 2 puffs by mouth every 4 (four) hours if needed for wheezing. 6.7 g 2 Active fluticasone propion-salmetero L (ADVAIR DISKUS) 100-50 mcg/dose diskus inhaler Inhale 1 puff by mouth 2 (two) times a day. Rinse mouth with water after use to reduce aftertaste and incidence of candidiasis. Do not swallow. 3 each 1 Active ondansetron ODT (ZOFRAN-ODT) 4 mg disintegrating tablet Dissolve 1 tablet (4 mg total) on top of the tongue every 8 (eight) hours if needed for nausea or vomiting for up to 7 days. 20 tablet 025 2024 Active tirzepatide (Mounjaro) 10 mg/0.5 mL injectionIndicati ons:Type 2 diabetes mellitus without complication, without long-term current use of insulin ([facility] V24, [facility] V28) Inject 0.5 mL (10 mg total) under the skin every 7 (seven) days. 2 mL 1 025 2025 Active cyclobenzaprine (FLEXERIL) 5 mg tablet TAKE ONE TABLET BY MOUTH THREE TIMES A DAY NEEDED FOR MUSCLE SPASM 90 tablet 1 025 2024 Discontinued fluticasone propion-salmetero L (ADVAIR DISKUS) 100-50 mcg/dose diskus inhaler Inhale 1 puff by mouth 2 (two) times a day. Rinse mouth with water after use to reduce aftertaste and incidence of candidiasis. Do not swallow. 3 each 1 025 2024 Discontinued(R eorder) albuterol HFA (Ventolin HFA) 90 mcg/actuation inhalerIndication s:Mild intermittent asthma without complication Inhale 2 puffs by mouth every 4 (four) hours if needed for wheezing. 6.7 g 2 025 2024 Discontinued(R eorder) tirzepatide (Mounjaro) 7.5 mg/0.5 mL injectionIndicati ons:Type 2 diabetes mellitus without complication, without long-term current use of insulin ([facility] V24, [facility] V28) Inject 0.5 mL (7.5 mg total) under the skin every 7 (seven) days. 2 mL 1 025 2024 Discontinued nitrofurantoin, macrocrystal-mono hydrate, (MACROBID) 100 mg capsule Take 1 capsule (100 mg total) by mouth 2 (two) times a day for 5 days. 10 each 025 2024 Discontinued Active Problems Problem Noted Date Diagnosed Date DM (diabetes mellitus), type 2 ([facility] V24, [facility] V28) 05/06/2025 Recurrent HSV (herpes simplex virus) 05/18/2024 Overview [...] (05/18/2024): Follows with neurology Bipolar affective disorder ([facility] V24, [facility] V28) 12/02/2017 Fibromyalgia 12/02/2017 DDD (degenerative disc disease), lumbar 04/20/20 16 Overview (05/18/2024): Last Assessment & Plan: Patient describes severe chronic low back pain, states the pain is excruciating, 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 She is very active, has to do [...] lumbar MRI images from 2019 done at [facility] on the computer in detail, at that [...] abnormal vessels appreciated; biopsy not taken. PAP 08/31.2012: NIL PAP 01/21/2014: ASCUS, +HPV PAP 06/18/2015: [...] Encounters Date Type Department Care Team Description 05/07/2025 9:30 AM EST Office Visit Internal Medicine - [address] [place] [phone] Fortunato Mckeon PA Type 2 diabetes mellitus without complication, without long-term current use of insulin ([facility] V24, [facility] V28) (Primary Dx); Mild intermittent asthma without complication; Recurrent UTI; Right flank pain; Overweight; Recurrent HSV (herpes simplex virus) 05/07/2025 [facility] [place] [phone] Chelo Gama DO 05/06/2025 Results Follow-Up [facility] - [facility] [phone] Fortunato Mckeon PA 05/03/2025 12:20 PM EDT Lab Draw Station - [address] Dysuria 05/03/2025 Results Follow-Up Internal Medicine - [address] [phone] Fortunato Mckeon PA 05/02/2025 11:00 AM EDT Lab Draw Station - [address] Type 2 diabetes mellitus without complication, without long-term current use of insulin ([facility] V24, [facility] V28) 04/09/2025 8:45 AM EDT Office Visit Internal Medicine - [address] [phone] Fortunato Mckeon PA Type 2 diabetes mellitus without complication, without long-term current use of insulin (CMS/HCC V24, [facility] V28) (Primary Dx); Screening-pulmonary TB 04/01/2025 Telephone Internal Medicine - [address] [phone] Chelo Gama DO 03/29/2025 3:00 PM EDT Clinic Lab Collection Walk-In [facility] - [address] [phone] Dysuria 03/28/2025 Telephone Walk-In Clinic - [place] [address] [place] [phone] Oswaldo Viera PA 03/27/2025 2:00 PM EDT Office Visit Walk-In Clinic - [address] [phone] Oswaldo Viera PA Dysuria (Primary Dx) 03/05/2025 8:45 AM EDT Office Visit Internal Medicine - [address] [phone] Fortunato Mckeon PA Type 2 diabetes mellitus without complication, without long-term current use of insulin ([facility] V24, [facility] V28) (Primary Dx); Bloody stool from Last 3 Months Immunizations Immunization Administration Dates Next Due Hepatitis B (Vilochb-J-Jnkbt , Recombivax HB-Adult) 19yo and older 11/01/2016 MMR, measles mumps and rubel la Live (Priorix; M-M-R II) 12mo and older 11/01/2016 PPD Test 11/01/2016 Tdap Tetanus diptheria acell ular pertussis (Boostrix; Adacel) 7yo and older 03/10/2012 Surgical History Surgery Date Site/Laterality Comments SECTION times 3 PROCEDURE: [place] DELIVERY ONLY BREAST BIOPSY 01/30/2019 Left PROCEDURE: BX BREAST; PERC NEEDLE CORE W/IMAG GUID; COMMENT: fibroadenoma CARPAL TUNNEL RELEASE 07/15/2022 Right PROCEDURE: HISTORICAL CARPAL TUNNEL REL; COMMENT: Dr. Cartagena CARPAL TUNNEL RELEASE 2018 Left PROCEDURE: HISTORICAL CARPAL TUNNEL REL CHOLECYSTECTOMY 04/26 [place] Medical History Medical History Date Comments Tobacco [...] takes wellbutrin for depression Bipolar affective disorder ( [facility] V24, [facility] V28) 12/02/2017 DX:Bipolar affective disorde r ([facility]) Chronic tension headaches 12/28/2011 DX:Chr onic tension [...] 1 32.8 Started: 07/04/1992 Smokeless Tobacco: Never Tobacco Cessation:Ready [...] care for your loved ones. For example, manager child or elderly care for an older adult? [...] Pulse 60 05/07/2025 9:24 AM EST Temperature 36.7 C (98.1 F) 03/27/2025 2:12 PM EDT Respiratory Rate 16 05/07/2025 9:24 AM EST Oxygen Saturation 98% 03/27/2025 2:12 PM EDT Inhaled Oxygen Concentration - - Weight 77.1 kg (170 lb) 05/07/2025 9:24 AM EST Height 165.1 cm (5' 5 ) 03/05/2025 8:32 AM EDT Body Mass Index 28.29 03/05/2025 8:32 AM EDT Plan of Treatment Upcoming Encounters Date Type Department Care Team (Late st Contact Info) Description 05/10/2025 9:45 AM EST Appointment Ultrasound - [facility] [address] [place] [phone] 07/17/2025 10:10 AM EST Consult Gastroenterology - [address] [phone] Francesca Conner PA [address] [phone] 08/13/2025 9:00 AM EST Office Visit [facility] - [facility] [address] [facility] [place] [phone] Fortunato Mckeon PA [address] [place] [address] Health Maintenance Due Date Last Done Comments COVID-19 Vaccine (#1) 1985 Diabetes: Annual Foot Exam 1990 Hepatitis A Vaccines (1 of 2 - Risk 2-dose series) 1999 Pneumococcal Vaccine: Pediatrics (0 to 5 Years) and At-Risk Patients (6 to 49 Years) (1 of 2 - PCV) 1999 HPV Vaccines (1 - Risk 3-dose SCDM series) 2007 Hepatitis B Vaccines (2 of 3 - 19+ 3-dose series) 11/29/2016 11/01/2016 DTaP,Tdap,and Td Vaccines (2 - Td or Tdap) 03/10/2022 03/10/2012 HIV Screening 06/12/2022 Breast Cancer Screening 01/11/2025 01/12/20 23, 01/08/2022, 01/06/2021, Additional history exists Influenza Vaccine (#1) 2025 Cervical Cancer Screening: HPV 10/13/2025 10/13/2020 Diabetes: Blood Sugar Control Test (HGBA1C) 10/31/2025 05/02/2025, 01/31/2025, 12/11/2020 Diabetes: Annual Retina Eye Exam 12/03/2025 12/03/2024, 08/09/2024 Social Influencers of Health Screening 12/15/2025 12/15/2024 Diabetes: Annual Urine Albumin-Creatinine Ratio (uACR) 05/02/2026 05/02/2025, 12/23/2016 Diabetes: Annual GFR (Glomerular Filtration Rate) 05/02/2026 05/02/2025, 12/17/2024, 12/11/2020 Cholesterol Screening (Lipid Panel) 12/17/2029 12/17/2024, 12/06/2018 RSV Immunization Adult Patients (1 - 1-dose 75+ series) 2055 MMR Vaccines Aged Out 11/01/2016 No longer eligi ble based on patient's age to complete this topic Hepatitis C Screening Completed 01/07/2021 Depression Screening Completed 12/15/2024 HIB Vaccines Aged Out No longer eligi ble based on patient's age to complete this topic IPV Vaccines Aged Out No longer eligi ble based on patient's age to complete this topic Meningococcal ACWY Vaccine Aged Out N o longer eligible based on patient's age to complete this topic Meningococcal B Vaccine Aged Out No l onger eligible based on patient's age to complete this topic RSV Immunization Patients Under 20 months Aged Out No longer eligible based on patient's age to complete this topic Varicella Vaccines Aged Out No longer eligible based on patient's age to complete this topic Procedures Procedure Name Priority Date/Time Associated Diagnosis Comments AL URINE CULTURE TUBE Routine 05/03/2025 12:20 PM EDT Dysuria URINALYSIS WITH REFLEX MICROSCOPIC AND CULTURE Routine 05/03/2025 12:19 PM EDT Dysuria URINALYSIS WITH REFLEX MICROSCOPIC AND CULTURE Routine 05/03/2025 12:19 PM EDT Dysuria CULTURE URINE Routine 05/03/2025 12:19 PM EDT Dysuria LA URINE CULTURE TUBE Routine 05/02/2025 10:59 AM EDT Type 2 diabetes mellitus without complication, without long-term current use of insulin (CMS/HCC V24, CMS/HCC V28) URINALYSIS WITH REFLEX MICROSCOPIC AND CULTURE Routine 05/02/2025 10:58 AM EDT Type 2 diabetes mellitus without complication, without long-term current use of insulin ([facility] V24, CMS/HCC V28) COMPREHENSIVE METABOLIC PANEL Routine 05/02/2025 10:58 AM EDT Type 2 diabetes mellitus without complication, without long-term current use of insulin (CMS/HCC V24, CMS/HCC V28) MICROALBUMIN CREATININE URINE RATIO Routine 05/02/2025 10:58 AM EDT Type 2 diabetes mellitus without complication, without long-term current use of insulin (CMS/HCC V24, CMS/HCC V28) URINALYSIS WITH REFLEX MICROSCOPIC AND CULTURE Routine 05/02/2025 10:58 AM EDT Type 2 diabetes mellitus without complication, without long-term current use of insulin (CMS/HCC V24, CMS/HCC V28) HEMOGLOBIN A1C Routine 05/02/2025 10:58 AM EDT Type 2 diabetes mellitus without complication, without long-term current use of insulin (CMS/HCC V24, CMS/HCC V28) CULTURE URINE Routine 05/02/2025 10:58 AM EDT Type 2 diabetes mellitus without complication, without long-term current use of insulin (CMS/HCC V24, CMS/HCC V28) CULTURE URINE Routine 03/29/2025 2:37 PM EDT Dysuria URINALYSIS MICROSCOPIC ONLY Routine 03/27/2025 6:23 PM EDT Dysuria URINALYSIS MICROSCOPIC ONLY Routine 03/27/2025 6:23 PM EDT Dysuria CULTURE URINE Routine 03/27/2025 6:23 PM EDT Dysuria POC URINE NON-AUTO W/O MICRO Routine 03/27/2025 3:13 PM EDT Dysuria LIPID PANEL WITH REFLEX TO DIRECT LDL Routine 12/17/2024 1:55 PM EDT Transaminitis EXTERNAL DIABETIC RETINA EYE EXAM 12/03/2024 SCREENING MAMMOGRAPHY BI 2-VIEW BREAST INC CAD Routine 01/11/2023 11:44 AM EDT Encounter for screening mammogram for malignant neoplasm of breast HEPATITIS C SCREENING Routine 01/07/2021 HPV Routine 10/13/2020 from Last 3 Months or Most Recently Relevant to Health Maintenance Results * Al urine culture tube (05/03/2025 12:20 PM EDT) Only the most recent of2 resultswithin the time period is included. Extra Tube Hold for add-ons. 05/03/2025 2:01 PM EDT [facility] Comment:Auto resulted. Urine Urine specimen obtained by clean catch procedure / Unknown Non-blood Collection / Unknown 05/03/2025 12:20 PM EDT 05/03/2025 12:20 PM EDT us Fortunato ARREOLA LAB URINE ORDERABLES Fi nal Result [facility] [address] [place] [address], [place] [phone] * (ABNORMAL) Urinalysis with reflex microscopic and culture (05/03/2025 12:19 PM EDT) Only the most recent of2 resultswithin the time period is included. Specific [place] Urine 1.025 1.003 - 1.030 LAB URINALYSIS - AUTOMATED METHOD 05/03/2025 2:16 PM EDT [facility] pH, Urine 6.0 5.0 - 8.0 pH LAB URINALYSIS - AUTOMATED METHOD 05/03/2025 2:16 PM [facility] Leukocytes, Urine Trace(A) Negative LAB URINALYSIS - AUTOMATED METHOD 05/03/2025 2:16 PM [facility] Nitrite, Urine Negative Negative LAB URINALYSIS - AUTOMATED METHOD 05/03/2025 2:16 PM [facility] Protein, Urine Trace <=Trace mg/dL LAB URINALYSIS - AUTOMATED METHOD 05/03/2025 2:16 PM [facility] Glucose, Urine Negative Negative mg/dL LAB URINALYSIS - AUTOMATED METHOD 05/03/2025 2:16 PM [facility] Ketones, Urine Trace(A) Negative mg/dL LAB URINALYSIS - AUTOMATED METHOD 05/03/2025 2:16 PM [facility] Urobilinogen, Urine 0.2 0.2 - 1.0 mg/dL LAB URINALYSIS - AUTOMATED METHOD 05/03/2025 2:16 PM [facility] Bilirubin, Urine Negative Negative LAB URINALYSIS - AUTOMATED METHOD 05/03/2025 2:16 PM [facility] Blood, Urine Trace(A) Negative LAB URINALYSIS - AUTOMATED METHOD 05/03/2025 2:16 PM [facility] RBC, Urine 3.9 0 - 4 /HPF LAB URINALYSIS - AUTOMATED METHOD 05/03/2025 2:16 PM EDT [facility] WBC, Urine 6.8(H) 0 - 4 /HPF LAB URINALYSIS - AUTOMATED METHOD 05/03/2025 2:16 PM EDT [facility] Squamous Epithelial, Urine >100(H) 0 - 60 /LPF LAB URINALYSIS - AUTOMATED METHOD 05/03/2025 2:16 PM EDT [facility] Bacteria, Urine Many(A) Negative /HPF LAB URINALYSIS - AUTOMATED METHOD 05/03/2025 2:16 PM EDT [facility] Hyaline Casts, Urine 7.2(H) 0 - 3 /LPF LAB URINALYSIS - AUTOMATED METHOD 05/03/2025 2:16 PM EDT [facility] Urine Urine specimen obtained by clean catch procedure / Unknown Non-blood Collection / Unknown 05/03/2025 12:19 PM EDT 05/03/2025 12:19 PM EDT Fortunato ARREOLA LAB URINE ORDERABLES nal Result [facility] [address] [place] [address], * (ABNORMAL) Culture urine (05/03/2025 12:19 PM EDT) Only the most recent of4 resultswithin the time period is included. Culture, Urine >=100,000 CFU/mL Klebsiella pneumoniae ssp pneumoniae(A) TITA 05/05/2025 10:56 AM EST [facility] Comment: This is an edited result. Previous organism was Gram negative bacilli on 05/04/2025 at 1047 EDT. Urine Urine specimen obtained by clean catch procedure / Unknown Non-blood Collection / Unknown 05/03/2025 12:19 PM EDT 05/03/2025 2:16 PM EDT Narrative Organism Antibiotic Method Susceptibility Klebsiella pneumoniae ssp pneumoniae Amoxicillin/Clavulanate TITA <=2 ug/ml: Susceptible Klebsiella pneumoniae ssp pneumoniae Ampicillin/Sulbactam TITA 4 ug/ml: Susceptible Klebsiella pneumoniae ssp pneumoniae Piperacillin/Tazobactam TITA <=4 ug/ml: Susceptible Klebsiella pneumoniae ssp pneumoniae Cefazolin (Urine) TITA 2 ug/ml: Susceptible Klebsiella pneumoniae ssp pneumoniae Cefoxitin TITA <=4 ug/ml: Susceptible Klebsiella pneumoniae ssp pneumoniae Ceftazidime TITA <=0.5 ug/ml: Susceptible Klebsiella pneumoniae ssp pneumoniae Ceftriaxone TITA <=0.25 ug/ml: Susceptible Klebsiella pneumoniae ssp pneumoniae Cefepime TITA <=0.12 ug/ml: Susceptible Klebsiella pneumoniae ssp pneumoniae Meropenem TITA <=0.25 ug/ml: Susceptible Klebsiella pneumoniae ssp pneumoniae Amikacin TITA <=1 ug/ml: Susceptible Klebsiella pneumoniae ssp pneumoniae Gentamicin TITA <=1 ug/ml: Susceptible Klebsiella pneumoniae ssp pneumoniae Ciprofloxacin TITA <=0.06 ug/ml: Susceptible Klebsiella pneumoniae ssp pneumoniae Levofloxacin TITA <=0.12 ug/ml: Susceptible Klebsiella pneumoniae ssp pneumoniae Nitrofurantoin TITA 64 ug/ml: Intermediate Klebsiella pneumoniae ssp pneumoniae Trimethoprim/Sulfamethoxazo le TITA <=20 ug/ml: Susceptible Fortunato ARREOLA LAB MICROBIOLOGY - GENE RAL ORDERABLES Final Result [facility] [address] [place] [address], * Microalbumin creatinine urine ratio (05/02/2025 10:58 AM EDT) Creatinine, Urine 188.0 mg/dL LAB CHEMISTRY METHOD 05/02/2025 4:34 PM EDT [facility] Microalb, Ur 11.8 0.0 - 29.0 mg/L LAB CHEMISTRY METHOD 05/02/2025 4:34 PM EDT [facility] Microalb/Creat Ratio 6 <30 mg/g creat LAB CHEMISTRY METHOD 05/02/2025 4:34 PM EDT [facility] Urine Urine specimen obtained by clean catch procedure / Unknown Non-blood Collection / Unknown 05/02/2025 10:58 AM EDT 05/02/2025 10:58 AM EDT Fortunato ARREOLA LAB URINE ORDERABLES Fi nal Result Performing Organization Address [facility]/ZIP Co de Phone Number [facility] [address] [place] [address], [place] [phone] * Hemoglobin A1c (05/02/2025 10:58 AM EDT) Pathologist [facility] Hemoglobin A1C 6.0 <6.5 % LAB CHEMISTRY METHOD 05/02/2025 3:27 PM EDT [facility] Mean Bld Glu Estim. 126 mg/dL LAB CHEMISTRY METHOD 05/02/2025 3:27 PM EDT [facility] Blood Venous blood specimen / Unknown Venipuncture / Unknown 05/02/2025 10:58 AM EDT 05/02/2025 10:58 AM EDT Fortunato ARREOLA LAB BLOOD ORDERABLES Fi nal Result Performing Organization Address City/[facility]/ZIP Co de Phone Number [facility] [address] [place] [address], [place] [phone] * Comprehensive metabolic panel (05/02/2025 10:58 AM EDT) Sodium 136 133 - 145 mmol/L LAB CHEMISTRY METHOD 05/02/2025 3:39 PM EDT [facility] Potassium 4.1 3.5 - 5.5 mmol/L LAB CHEMISTRY METHOD 05/02/2025 3:39 PM EDT [facility] Chloride 102 96 - 110 mmol/L LAB CHEMISTRY METHOD 05/02/2025 3:39 PM EDT [facility] CO2 24 21 - 32 mmol/L LAB CHEMISTRY METHOD 05/02/2025 3:39 PM EDT [facility] Anion Gap 10 3 - 11 LAB CHEMISTRY METHOD 05/02/2025 3:39 PM [facility] Glucose 99 70 - 100 mg/dL LAB CHEMISTRY METHOD 05/02/2025 3:39 PM [facility] BUN 10 5 - 25 mg/dL LAB CHEMISTRY METHOD 05/02/2025 3:39 PM [facility] Creatinine 0.77 0.50 - 1.10 mg/dL LAB CHEMISTRY METHOD 05/02/2025 3:39 PM [facility] eGFR 98 >=60 mL/min/1. 73m2 LAB CHEMISTRY METHOD 05/02/2025 3:39 PM [facility] Comment:Calculation based on the Chronic Kidney Disease Epidemiology Collaboration (CKD-EPI) equation refit without adjustment for race. BUN/Creatinine Ratio 13.0 LAB CHEMISTRY METHOD 05/02/2025 3:39 PM [facility] Calcium 9.9 8.5 - 10.5 mg/dL LAB CHEMISTRY METHOD 05/02/2025 3:39 PM [facility] AST (SGOT) 15 10 - 42 unit/L LAB CHEMISTRY METHOD 05/02/2025 3:39 PM [facility] ALT (SGPT) 32 10 - 60 unit/L LAB CHEMISTRY METHOD 05/02/2025 3:39 PM [facility] Alkaline Phosphatase 87 42 - 121 unit/L LAB CHEMISTRY METHOD 05/02/2025 3:39 PM [facility] Total Protein 7.4 6.0 - 8.0 g/dL LAB CHEMISTRY METHOD 05/02/2025 3:39 PM [facility] Albumin 4.4 3.2 - 5.0 g/dL LAB CHEMISTRY METHOD 05/02/2025 3:39 PM [facility] Total Bilirubin 0.4 0.0 - 1.4 mg/dL LAB CHEMISTRY METHOD 05/02/2025 3:39 PM [facility] Blood Venous blood specimen / Unknown Venipuncture / Unknown 05/02/2025 10:58 AM EDT 05/02/2025 10:58 AM EDT Fortunato ARREOLA LAB BLOOD ORDERABLES Fi nal Result Performing Organization Address [facility]/ZIP Co de Phone Number [facility] [address] [place] [address], [place] [phone] * (ABNORMAL) Urinalysis microscopic only (03/27/2025 6:23 PM EDT) RBC, Urine 3.0 0 - 4 /HPF LAB URINALYSIS - AUTOMATED METHOD 03/27/2025 8:35 PM EDT [facility] WBC, Urine 6.8(H) 0 - 4 /HPF LAB URINALYSIS - AUTOMATED METHOD 03/27/2025 8:35 PM EDT [facility] Squamous Epithelial, Urine 51 0 - 60 /LPF LAB URINALYSIS - AUTOMATED METHOD 03/27/2025 8:35 PM EDT [facility] Bacteria, Urine Moderate( A) Negative /HPF LAB URINALYSIS - AUTOMATED METHOD 03/27/2025 8:35 PM EDT [facility] Hyaline Casts, Urine 0.0 0 - 3 /LPF LAB URINALYSIS - AUTOMATED METHOD 03/27/2025 8:35 PM EDT [facility] Urine Urine specimen obtained by clean catch procedure / Unknown Non-blood Collection / Unknown 03/27/2025 6:23 PM EDT 03/27/2025 6:23 PM EDT Oswaldo ARREOLA LAB URINE ORDERABLES Final Result Performing Organization Address [facility]/ZIP Co de Phone Number [facility] [address] [place] [address], * (ABNORMAL) POC Urine Non-Auto W/O Micro (03/27/2025 3:13 PM EDT) Pathologist [facility] GLUCOSE POC Negative Negative, Trace mg/dL Leukocytes UA POC 1+(A) Negative mg/dL Nitrite UA POC Negative Urobilinogen UA POC 0.2 E.U./dL mg/dL Protein UA POC Positive Positive, Negative Comment:trace PH UA POC 6.0 ERIC/HM UA POC Negative Negative Specific [place] UA POC <=1.005 Ketones UA POC Negative Negative Bilirubin UA POC Negative Negative Urine Urine specimen obtained by clean catch procedure / Unknown 03/27/2025 3:13 PM EDT Oswaldo ARREOLA POINT OF CARE TEST ENTER/E DIT ORDERABLES Final Result * (ABNORMAL) Lipid panel with reflex to direct LDL (12/17/2024 1:55 PM EDT) [facility] Cholesterol 238(H) 0 - 200 mg/dL LAB CHEMISTRY METHOD 12/17/2024 6:22 PM [facility] Triglycerides 257(H) 0 - 150 mg/dL LAB CHEMISTRY METHOD 12/17/2024 6:22 PM [facility] HDL 48 >=40 mg/dL LAB CHEMISTRY METHOD 12/17/2024 6:22 PM [facility] LDL Calculated 139(H) 0 - 100 mg/dL LAB CHEMISTRY METHOD 12/17/2024 6:22 PM [facility] VLDL Cholesterol Jorje 51.4 mg/dL LAB CHEMISTRY METHOD 12/17/2024 6:22 PM [facility] Non HDL Chol. (LDL+VLDL) 190(H) <145 mg/dL LAB CHEMISTRY METHOD 12/17/2024 6:22 PM [facility] Chol/HDL Ratio 5.0(H) 0.0 - 4.4 LAB CHEMISTRY METHOD 12/17/2024 6:22 PM [facility] Blood Venous blood specimen / Unknown Venipuncture / Unknown 12/17/2024 1:55 PM EDT 12/17/2024 1:55 PM EDT Fortunato ARREOLA LAB BLOOD ORDERABLES Fi nal Result JOO CONTRERAS AR ([facility]) [facility] [address] [place] [address], [place] [phone] * External Diabetic Retina Eye Exam Report (12/03/2024) Anatomical Region Laterality Modality Ultrasound us Provider [...] interpreted with the aid of computer-aided detection. Comparison is made with 01/08/2022 and as far back as 12/27/2018. History of a biopsy-proven fibroadenoma in the left breast 01/30/2019. Breast parenchyma is composed of scattered fibroglandular densities. Stable subcentimeter nodule with an associated biopsy marker [...] C Screening (01/07/2021) Hepatitis C Screening abstracted Historical Provider HEALTH MAINTENANCE Final Result * Cervical Cancer Screening: HPV (10/13/2020) Cervical Cancer Screening: HPV abstracted, negative Historical Provider HEALTH MAINTENANCE Final Result from Last 3 Months or Most Recently Relevant to Health Maintenance Insurance [place] [address] [employer] PLAN Care Teams Coater Slate Relationship Specialty Start Date End Date Chelo Gama DO [address] [place] [address] PCP - General 04/27/24
--- OUTSIDE RECORDS SUMMARY | 2025-05-09 09:51 | XMS_ITS | Encounter Summary ---
Author Organization [facility] Address [address] [place] [address] Care Team Providers Care Tankage Supervisor Name Role Phone Chelo Gama DO Primary Care Provider [phone] Reason for Visit * Reason Onset Date Comments Medication Problem 05/07/2025 Encounter Details Date Type Department Care Team (Late st Contact Info) Description 05/07/2025 Telephone Internal Medicine - [facility] [address] [place] [address] Chelo Gama DO [address] [place] [address] Social History Tobacco Use Types Packs/Day Years [...] ed Within the last 3 months, parish w many times did you visit the [...] do you feel lonely or isolated from ose around you? Never 12/15/2024 Food Risk [...] for your loved ones. For example, child health associate or elderly care for an older adult? [...] as of this encounter Progress Notes * Janice Richardson MA - 05/07/2025 1:17 PM EST Pharmacist informed for patient to finish her monthly 7.5mg and then increase to 10mg. * Nayshira Liang - 05/07/2025 11:43 AM EST [facility] pharmacy intake coordinator from [employer] is calling for clarification. Pt picked up tirzepatide (Mounjaro) 7.5 mg/0.5 mL injection earlier this month 04/09, tech would like to know if pt should stop taking 7.5mg or continue until done then start tirzepatide (Mounjaro) 10 mg/0.5 mL injection.? Contact: documented in this encounter Plan of Treatment Upcoming Encounters Date Type Department Care Team (Late st Contact Info) Description 05/10/2025 9:45 AM EST Appointment Ultrasound - [facility] [address] [place] [address] 07/17/2025 10:10 AM EST Consult Gastroenterology - [address] [facility] [address] [place] [address] Francesca Conner PA [address] [place] [address] 08/13/2025 9:00 AM EST Office Visit Internal Medicine - [facility] [address] [place] [address] Fortunato Mckeon PA [address] [place] [address] documented as of this encounter Visit Diagnoses Not on filedocumented in this encounter Additional Health Concerns Assessment Noted Time PHQ-9 Depression Total Score: 0 12/16/19 9:52 AM EDT documented as of this encounter Care Teams Tankage Supervisor Relationship Specialty Start Date End Date Chelo Gama DO [address] [place] [address] PCP - General 04/27/24 documented as of this encounter
--- OUTSIDE RECORDS SUMMARY | 2025-05-09 09:51 | XMS_ITS ---
Author Name [facility] Organization Unknown Encounters Encounter Type Encounter Reason Primary Diagnosis Location Date Ambulatory [facility] 04/13/2024 Care Team Organization Name Specialty Phone Email Start Date End [facility] 10/27/2024 [facility] Rosa Smith Primary Care 09/08/20222023 [facility] Jaqueline Rodríguez Primary Care 05/11/2022
--- OUTSIDE RECORDS SUMMARY | 2025-05-09 09:51 | XMS_ITS | Encounter Summary ---
Author Organization [facility] Address [address] [place] [address] Care Team Providers Care Womens Health Nurse Practitioner Name Role Phone ObduliaChelo tellez Primary Care Provider [phone] Reason for Visit * Reason Onset Date Comments Medication Problem 05/06/2025 Encounter Details Date Type Department Care Team (Late st Contact Info) Description 05/06/2025 Results Follow-Up Internal Medicine - [facility] [address] [place] [address] Fortunato Mckeon PA [address] [place] [address] Social History Tobacco Use Types Packs/Day Years [...] care for your loved ones. For example, children's choir director or elderly care for an older [...] Refills Last Filled Start Date End Date ciprofloxacin (CIPRO) 500 mg tablet Take 1 tablet (500 mg total) by mouth 2 (two) times a day for 7 days. 14 each 05/06/2025 05/13/2025 documented in this encounter Plan of Treatment Upcoming Encounters Date Type Department Care Team (Late st Contact Info) Description 05/10/2025 9:45 AM EST [facility] [address] [place] [address] 07/17/2025 10:10 AM EST Consult Gastroenterology - [address] [facility] [address] [place] [address] Francesca Conner PA [address] [address] 08/13/2025 9:00 AM EST [facility] [address] [place] [address] Fortunato Mckeon PA [address] [place] [address] documented as of this encounter Visit Diagnoses Not on filedocumented in this encounter Discontinued Medications Medication Sig Discontinue Reason Start Date End Da te nitrofurantoin, macrocrystal-monohydrate , (MACROBID) 100 mg capsule Take 1 capsule (100 mg total) by mouth 2 (two) times a day for 5 days. 05/03/2025 05/06/2025 documented as of this encounter Additional Health Concerns Assessment Noted Time PHQ-9 Depression Total Score: 0 12/16/19 25 9:52 AM EDT documented as of this encounter Care Teams Womens Health Nurse Practitioner Relationship Specialty Start Date End Date Chelo Gama DO [address] [place] [id number] PCP - General 04/27/24 documented as of this encounter
[2025-05-14 12:32] VITALS: BMI 28.0
== END 2025-05-09 09:51 | disposition home or self-care (01) ==
LOC: HO.ENCR 09:04
PROVIDERS: PCP Internal Medicine; Visit Provider Dietitian, Registered
DX: E11.9 Type 2 diabetes mellitus without complications (principal)

== ENCOUNTER → 2025-05-09 09:04 | Outpatient (BNVA) | payer OTHER, SELFPAY | PROVIDERS: PCP Internal Medicine; Visit Provider Dietitian, Registered | DX: E11.9 Type 2 diabetes mellitus without complications (principal) | CPT/HCPCS: 97802 ==